=== PATIENT | male | born 1960 | race Caucasian/White ===

== ENCOUNTER → 2016-05-26 | Outpatient (CLI) | payer MEDICARE ==
[~2016-05-26] VITALS: Ht 188 cm; Wt 108.9 kg
[~2016-05-26] MED LIST: AMLO5TAB2 PO; BREO1INH INH; BUPR1TAB17 PO; IBUP800T23 PO; LEVO175T2 PO; LIDOCAINE 2% INJ 100 MG/5 ML SDV (FOR ANES.) As Ordered ONE; LOSA100T36 PO; MULTTAB23 PO; NS 1,000 ML IV SCH; OMEG100011 PO; PROPOFOL 500 MG/50 ML VIAL As Ordered ONE; VITA100054 PO; ZANA4CAP PO
--- NOTE | 2016-05-26 12:28 | ROOR ---
Patient Name: Aguilar Wadswroth Procedure Date: 05/26/2016 11:57 AM Date of : 1960 Age: 55 Room: [facility] Gender: Male Note Status: Finalized Procedure: Upper GI endoscopy Indications: Suspected esophageal reflux Providers: Chetan Veronica Jr, MD Referring MD: ORLANDO GARDNER JR, MD Requesting Provider: Medicines: Propofol per Anesthesia Complications: No immediate complications. Procedure: Pre-Anesthesia Assessment: - Prior to the procedure, a History and Physical was performed, and patient medications and allergies were reviewed. The patient is competent. The risks and benefits of the procedure and the sedation options and risks were discussed with the patient. All questions were answered and informed consent was obtained. Patient identification and proposed procedure were verified by the physician and the nurse in the pre-procedure area and in the procedure room. Mental Status Examination: alert and oriented. Airway Examination: normal oropharyngeal airway and neck mobility. Respiratory Examination: clear to auscultation. CV Examination: normal. ASA Grade Assessment: II - A patient with mild systemic disease. After reviewing the risks and benefits, the patient was deemed in satisfactory condition to undergo the procedure. The anesthesia plan was to use moderate sedation / analgesia (conscious sedation). Immediately prior to administration of medications, the patient was re-assessed for adequacy to receive sedatives. The heart rate, respiratory rate, oxygen saturations, blood pressure, adequacy of pulmonary ventilation, and response to care were monitored throughout the procedure. The physical status of the patient was re-assessed after the procedure. The Endoscope was introduced through the mouth, and advanced to the second part of duodenum. The patient tolerated the procedure well. Findings: The upper third of the esophagus and middle third of the esophagus were normal. Moderately severe esophagitis was found in the lower third of the esophagus. Patchy moderate inflammation characterized by congestion (edema), erythema, friability, granularity and linear erosions was found on the greater curvature of the stomach, in the gastric antrum and in the prepyloric region of the stomach. Biopsies were taken with a cold forceps for histology. The cardia, gastric fundus and gastric body were normal. Patchy severe inflammation characterized by congestion (edema), erythema and friability was found in the duodenal bulb and in the first portion of the duodenum. The second portion of the duodenum was normal. Impression: - Normal upper third of esophagus and middle third of esophagus. - Moderately severe reflux esophagitis. - Gastritis. Biopsied. - Normal cardia, gastric fundus and gastric body. - Duodenitis. - Normal second portion of the duodenum. Recommendation: - Discharge patient to home (ambulatory). - Return to my office in 2 weeks. Chetan Veronica MD Chetan Veronica Jr, MD 05/26/2016 12:28:22 PM This report has been signed electronically. Number of Addenda: 0 Note Initiated On: 05/26/2016 11:57 AM Estimated Blood Loss: Estimated blood loss: none.
--- NOTE | 2016-05-26 12:30 | ROOR ---
Patient Name: Aguilar Wadsworth Procedure Date: 05/26/2016 11:58 AM Date of : 1960 Age: 55 Room: [facility] Gender: Male Note Status: Finalized Procedure: Colonoscopy Indications: Screening for colorectal malignant neoplasm Providers: Chetan Veronica Jr, MD Referring MD: ORLANDO GARDNER JR, MD Requesting Provider: Medicines: Propofol per Anesthesia Complications: No immediate complications. Procedure: Pre-Anesthesia Assessment: - Prior to the procedure, a History and Physical was performed, and patient medications and allergies were reviewed. The patient is competent. The risks and benefits of the procedure and the sedation options and risks were discussed with the patient. All questions were answered and informed consent was obtained. Patient identification and proposed procedure were verified by the physician and the nurse in the pre-procedure area and in the procedure room. Mental Status Examination: alert and oriented. Airway Examination: normal oropharyngeal airway and neck mobility. Respiratory Examination: clear to auscultation. CV Examination: normal. ASA Grade Assessment: II - A patient with mild systemic disease. After reviewing the risks and benefits, the patient was deemed in satisfactory condition to undergo the procedure. The anesthesia plan was to use moderate sedation / analgesia (conscious sedation). Immediately prior to administration of medications, the patient was re-assessed for adequacy to receive sedatives. The heart rate, respiratory rate, oxygen saturations, blood pressure, adequacy of pulmonary ventilation, and response to care were monitored throughout the procedure. The physical status of the patient was re-assessed after the procedure. The Colonoscope was introduced through the anus and advanced to the cecum, identified by appendiceal orifice and ileocecal valve. The colonoscopy was performed without difficulty. The patient tolerated the procedure well. The quality of the bowel preparation was adequate and good. Findings: The perianal exam findings include non-thrombosed internal hemorrhoids, internal hemorrhoids that prolapse with straining, but spontaneously regress to the resting position (Grade II) and internal hemorrhoids that prolapse with straining, but require manual replacement into the anal canal (Grade III). The rectum, recto-sigmoid colon, sigmoid colon, descending colon, transverse colon, ascending colon, cecum and ileocecal valve appeared normal. Impression: - Non-thrombosed internal hemorrhoids, internal hemorrhoids that prolapse with straining, but spontaneously regress to the resting position (Grade II) and internal hemorrhoids that prolapse with straining, but require manual replacement into the anal canal (Grade III) found on perianal exam. - The rectum, recto-sigmoid colon, sigmoid colon, descending colon, transverse colon, ascending colon, cecum and ileocecal valve are normal. - No specimens collected. Recommendation: - Discharge patient to home (ambulatory). - Repeat colonoscopy in 10 years for screening purposes. Chetan Veronica MD Chetan Veronica Jr, MD 05/26/2016 12:29:59 PM This report has been signed electronically. Number of Addenda: 0 Note Initiated On: 05/26/2016 11:58 AM Estimated Blood Loss: Estimated blood loss: none.
[2016-05-26 12:45] VITALS: BP 137/86
== END | disposition home or self-care (01) ==
LOC: M OPP 11:20
PROVIDERS: ATTEND Surgery
DX: Z12.11 Encounter for screening for malignant neoplasm of colon (principal); K64.2 Third degree hemorrhoids; K64.1 Second degree hemorrhoids; K21.0 Gastro-esophageal reflux disease with esophagitis; K29.70 Gastritis, unspecified, without bleeding; K29.80 Duodenitis without bleeding; Z86.010 Personal history of colon polyps; R12 Heartburn; Z87.19 Personal history of other diseases of the digestive system; I10 Essential (primary) hypertension; E03.9 Hypothyroidism, unspecified; M19.90 Unspecified osteoarthritis, unspecified site; F32.9 Major depressive disorder, single episode, unspecified; J44.9 Chronic obstructive pulmonary disease, unspecified; R06.02 Shortness of breath; N40.0 Benign prostatic hyperplasia without lower urinary tract symptoms; Z87.891 Personal history of nicotine dependence; Z79.899 Other long term (current) drug therapy
CPT/HCPCS: 43239; 88305; 99156; 99157; G0105

== ENCOUNTER 2019-02-10 15:39 | Inpatient (IN) | payer MEDICARE ==
[~2019-02-10] VITALS: Ht 188 cm; Wt 103.6 kg
[2019-02-10] VITALS (8 sets, daily range): BP systolic 115–191; BP diastolic 68–89
[~2019-02-10 15:39] MED LIST changes: -AMLO5TAB2 PO; +AMLO5TAB6 PO; -BUPR1TAB17 PO; +BUPR1TAB53 PO; +IBUP1TAB7 PO; -IBUP800T23 PO; -LIDOCAINE 2% INJ 100 MG/5 ML SDV (FOR ANES.) As Ordered ONE; -LOSA100T36 PO; +LOSA100T50 PO; -NS 1,000 ML IV SCH; -PROPOFOL 500 MG/50 ML VIAL As Ordered ONE
[2019-02-10] MEDS ORDERED: ELIQ5TAB PO (15:53)
[2019-02-10] MEDS ORDERED: METO75TA PO (16:04)
[2019-02-10] MEDS ORDERED: FURO40TA2 PO ×2 (16:04→19:53)
[2019-02-10] MEDS ORDERED: LEVO200T4 PO (16:04)
[2019-02-10] MEDS ORDERED: DIGO0.127 PO (16:04)
[2019-02-10 17:07] LABS: VENOUS HCO3 25.6 MEQ/L (23.0-27.0); VENOUS O2 SATURATION 67.4 % (60.0-80.0); VENOUS PARTIAL PRESSURE CO2 49.6 mmHg (38.0-50.0); VENOUS PARTIAL PRESSURE O2 40.8 mmHg (30.0-50.0); VENOUS STANDARD HCO3 22.9 MEQ/L; VENOUS TOTAL CO2 27.1 MEQ/L (24.0-28.0)
[2019-02-10 17:25] LABS: BASO % 0.3 % (0.0-1.0); EOS % 0.2 % (0.0-3.0); HEMATOCRIT 44.2 % (42.0-52.0); HEMOGLOBIN 13.9 g/dl (13.5-17.5); LYMPH % 14.8 % (24.0-44.0); MEAN CORPUSCULAR HEMOGLOBIN 29.8 pg (27.0-33.0); MEAN CORPUSCULAR HGB CONC 31.4 g/dl (32.0-36.5); MEAN CORPUSCULAR VOLUME 94.6 fl (80.0-96.0); MONO % 7.7 % (0.0-5.0); NEUTROPHILS # 10.1 10^3/uL (1.5-8.5); NEUTROPHILS % 76.2 % (36.0-66.0); PLATELET COUNT, AUTOMATED 290 10^3/uL (150-450); RED BLOOD COUNT 4.67 10^6/uL (4.30-6.10); WHITE BLOOD COUNT 13.3 10^3/uL (4.0-10.0)
[2019-02-10 17:37] LABS: ALBUMIN 3.6 GM/DL (3.2-5.2); BILIRUBIN,DIRECT 1.2 MG/DL (0.0-0.2); BILIRUBIN,TOTAL 2.8 MG/DL (0.2-1.0); TOTAL PROTEIN 7.9 GM/DL (6.4-8.2)
[2019-02-10 17:43] LABS: INFLUENZA A AMPLIFICATION NEGATIVE (NEGATIVE); INFLUENZA B AMPLIFICATION NEGATIVE (NEGATIVE)
[2019-02-10 17:49] LABS: INR 2.31; PROTHROMBIN TIME 25.2 SECONDS (11.8-14.0)
[2019-02-10] MEDS ORDERED: DEXTROSE 50% 50 ML SYRINGE IV STA ×2 (18:11→19:08)
[2019-02-10 18:12] LABS: BLOOD UREA NITROGEN 45 MG/DL (7-18); CALCIUM LEVEL 9.5 MG/DL (8.8-10.2); CARBON DIOXIDE LEVEL 29 MEQ/L (21-32); CHLORIDE LEVEL 97 MEQ/L (98-107); CK-MB VALUE MASS 5.1 NG/ML (<3.6); CPK CREATINE PHOSPHOKINASE 182 U/L (39-308); DIGOXIN LEVEL 0.8 NG/ML (0.5-2.0); GLOMERULAR FILTRATION RATE 38.7 (>49); GLUCOSE, FASTING 35 MG/DL (70-100); NT-PRO BNP 24131 PG/ML (<125); POTASSIUM SERUM 5.2 MEQ/L (3.5-5.1); SODIUM LEVEL 137 MEQ/L (136-145); TROPONIN I < 0.02 NG/ML (< 0.10)
[2019-02-10] MEDS ORDERED: MORPHINE 2 MG/ML 1ML VIAL (J2270) IV ONE (18:30)
[2019-02-10] MEDS ORDERED: DIGOXIN INJ 0.5 MG/2 ML AMP (J1160) IV STA (18:37)
[2019-02-10] MEDS ORDERED: FUROSEMIDE 40 MG/4 ML VIAL (J1940) IV ONE (18:45)
[2019-02-10] MEDS ORDERED: VANCOMYCIN HCL 1,000 MG, VIAL MATE ADAPTER 1 EACH in D5W 250 ML IV ONE (18:45)
[2019-02-10] MEDS ORDERED: MORPHINE 2 MG/ML 1ML VIAL (J2270) IV PRN (19:15)
[2019-02-10] MEDS ORDERED: D10W 500 ML IV SCH (19:15)
--- NOTE | 2019-02-10 19:26 | ECGEPIP ---
[facility] - ED Test Date: 2019-02-10 Pat Name: JONATHAN YING Department: Room: - Gender: Male Garage Manager: LEONCIO : 1960 Requested By: Ellie Sanford Order Number: [id number] Reading MD: Ellie Sanford Measurements Intervals [place] Rate: 135 P: [place]: 0 QRS: -71 QRSD: 114 T: 100 QT: 285 QTc: 428 Interpretive Statements ATRIAL FIBRILLATION WITH RAPID VENTRICULAR RESPONSE INCOMPLETE RIGHT BUNDLE BRANCH BLOCK LAD LEFT ANTERIOR FASCICULAR BLOCK MINIMAL ST DEPRESSION ABNORMAL QRS-T ANGLE NO PRIOR ECG FOR COMPARISON Electronically Signed on 02-10-2019 19:25:53 EST by Ellie Sanford
[2019-02-10] MEDS ORDERED: METO1TAB7 PO (19:53)
--- NOTE | 2019-02-10 20:21 | PHACANCOPD ---
PHARMACY VANCOMYCIN DOSING Pt Demographics Demographics Patient Age:58 , Weight:119.000 , Gender: male Adjusted Body Weight Date: 02/10/19, Adjusted Body Weight: Kg Events Past 24 Hours Events Past 24 Hours: NO: Dialysis, Diuretic Therapy, Change in CrCl, Fever, Elevation in WBC, Pending Diagnostics, Pending Procedures, Other Vancomycin Vancomycin Target Ranges: 15-20 mcg/ml Vancomycin Load Y/N: Yes Load Dose Date Time Vancomycin Load Dose: 2000mg Date: 02-10 Time: 2100 Vancomycin Dose Date: 02/10/19. Current Vancomycin Dose: [1000mg q8h] Intermittent Dosing?: No Labs Labs Item Value Date Time White Blood Count 13.3 10^3/uL H 02/10/19 1658 Glomerular Filtration Rate 38.7 L 02/10/19 1658 Creatinine 1.90 MG/DL H 02/10/19 1658 Blood Urea Nitrogen 45 MG/DL H 02/10/19 1658 Vital Signs Label Value Date Time Patient Temperature 98.9 degrees F 02/10/19 1900 Temperature Source Oral 02/10/19 1900 Micro Microbiology 02/10/19 Blood Culture, Received Pending 02/10/19 Blood Culture, Received Pending Creatinine Clearance Date:02/10/19. Creatinine Clearance: [~48]. Pending Labs Trough 11-25 @1200 Assessment and Plan Maintaining Current Dose?: Yes Reason for dose change: No Dose Change Pharmacist Note Pharmacist Note Date: 02/10/19. Pharmacist note:Will monitor and make adjustments as needed. [facility] Feb 10, 2019 20:21
[2019-02-10] MEDS ORDERED: METOPROLOL 5 MG/5 ML VIAL IV STA (20:22)
[2019-02-10] MEDS: ACETAMINOPHEN TAB 650MG DOSE (2X325MG) PO PRN (20:28)
[2019-02-10] MEDS ORDERED: tiZANidine 4 MG TAB PO PRN (20:30)
--- NOTE | 2019-02-10 20:37 | HPEPDOC ---
General Date of Admission 02/10/19 Date of Service: Feb 10, 2019 Chief Complaint The patient is a 58-year-old male admitted with a reason for visit of Short Of Breath. Source: Patient Exam Limitations: No limitations Timing/Duration: Day(s) Severity: Severe Associated Symptoms: Weakness History of Present Illness Patient is 58 years old male with past mental history of hypertension, atrial fibrillation, systolic heart failure with ejection fraction around 20% presented hospital with severe left leg pain. Patient stated that for few days he has been having severe left distal leg pain associated with increased swelling. LLE US shows . Soft tissue edema is identified involving the left calf. A fluid collection is visualized in this region measuring 4.4 x 0.7 x 2.1 cm. Abscess and seroma are within the differential. Also patient complains of palpitations, fever and chills. Of note patient has been recently diagnosed with systolic CHF with ejection fraction from 15-20%, currently on the life vest. In emergency room patient was found to have redness of the left distal leg, le ukocytosis of 13.4, elevated lactic acid, creatinine 1.9, fever of 103, patient is severely dyspneic with respiration rate 25. 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 EKG showed atrial fibrillation with rapid ventricular rate Also patient was found to have atrial fibrillation with rapid ventricular rate. Dr. Rodas was contacted by phone and he recommended Lasix, Lopressor when necessary and digitalis. Home Medications Scheduled Apixaban (Eliquis) 5 Mg Tablet, 5 MG PO BID, (Reported) Bupropion HCl (Bupropion HCl Sr) 150 Mg Tab, 150 MG PO DAILY, (Reported) Cholecalciferol (Vitamin D3) (Vitamin D3) 1,000 Unit Cap, 2,000 UNIT PO DAILY, (Reported) Digoxin (Digox) 125 Mcg Tablet, 125 MCG PO DAILY, (Reported) Fluticasone/Vilanterol (Breo Ellipta 100-25 Mcg INH) 1 Inh Inh, 1 PUFF INH DAILY, (Reported) Furosemide (Furosemide) 40 Mg Tablet, 60 MG PO DAILY, (Reported) Levothyroxine Sodium (Levothyroxine Sodium) 200 Mcg Tablet, 200 MCG PO DAILY, (Reported) Metoprolol Succinate (Metoprolol Succinate) 50 Mg Tab.er.24h, 75 MG PO DAILY, (Reported) Multivit-Min/FA/Lycopen/Lutein (Essential Man 50+ Tablet) 1 Tab Tab, 1 TAB PO DAILY, (Reported) Thendara-3 Fatty Acids/Fish Oil (Thendara 3 1,000 mg Softgel) 1 Cap Cap, 1 CAP PO DAILY, (Reported) Scheduled PRN Ibuprofen (Ibuprofen) 800 Mg Tab, 800 MG PO for PAIN, (Reported) Tizanidine HCl (Zanaflex) 4 Mg Cap, 4 MG PO QIDP PRN for PAIN, (Reported) Allergies Coded Allergies: No Known Allergies (Unverified , 12/31/13) Past Medical History Medical History COPD, hyperlipidemia, hypertension, systolic CHF with ejection fraction from 15- 20% Surgical History Hip replacement Family History Father of ALC Mother had dementia and hypothyroidism Social History * Smoker: former Smoker Alcohol: heavy Drugs: denies A-FIB/CHADSVASC A-FIB History Current/History of A-Fib/PAF?: Yes Current PO Anticoag Therapy: Yes Review of Systems Constitutional: Reports: Chills, Malaise, Weakness, Fatigue Eyes: Denies: Pain, Vision change ENT: Denies: Ear Pain, Dysphagia Skin: Reports: Rash, Lesions Pulmonary: Reports: Dyspnea; Denies: Cough Cardiovascular: Reports: Palpitations; Denies: Chest Pain Gastrointestinal: Denies: Nausea, Vomiting Genitourinary: Denies: Dysuria, Frequency Hematologic: Denies: Bruising, Bleeding Excessively Endocrine: Denies: Polydipsia, Polyphagia Musculoskeletal: Denies: Neck Pain, Back Pain Neurological: Denies: Weakness Psych: Reports: Mood Normal Physical Examination General Exam: Positive: Alert, Cooperative, Other (patient severe volume overload) Eye Exam: Positive: PERRLA ENT Exam: Positive: Atraumatic Neck Exam: Positive: Supple, JVD Chest Exam: Positive: Clear to auscultation Heart Exam: Positive: Irregular Rhythm Telemetry: Positive: Atrial fibrillation Abdomen Exam: Positive: Normal bowel sounds Extremity Exam: Positive: Clubbing, Edema, Swelling (both extremities, more on the left side); Negative: Cyanosis Skin Exam: Positive: Rash (left distal leg) Neuro Exam: Positive: Strength at 5/5 X4 ext, Cranial Nerves 3-12 NL Psych Exam: Positive: Mental status NL Vital Signs Vital Signs Date Time Temp Pulse Resp B/P (MAP) Pulse Ox O2 Delivery O2 Flow Rate FiO2 02/10/19 19:29 18 02/10/19 19:00 98.9 118 131/81 (98) 94 Room Air 02/10/19 18:43 2.0 Laboratory Data Labs 24H Laboratory Tests 2 02/10/19 16:58: Immature Granulocyte % (Auto) 0.8, Neutrophils (%) (Auto) 76.2H, Lymphocytes (%) (Auto) 14.8L, Monocytes (%) (Auto) 7.7H, Eosinophils (%) (Auto) 0.2, Basophils (%) (Auto) 0.3, Neutrophils # (Auto) 10.1H, Lymphocytes # (Auto) 2.0, Monocytes # (Auto) 1.0H, Eosinophils # (Auto) 0.0, Basophils # (Auto) 0.0, Nucleated Red Blood Cells % (auto) 0.0, Prothrombin Time 25.2H, Prothromb Time International Ratio 2.31, Activated Partial Thromboplast Time 32.0, Blood Gas Bicarbonate Standard 22.9, Venous Blood pH 7.330, Venous Blood Partial Pressure CO2 49.6, Venous Blood Partial Pressure O2 40.8, Venous Blood Total Carbon Dioxide 27.1, Venous Blood HCO3 25.6, Venous Blood Oxygen Saturation 67.4, Venous Blood Base Excess -1.0, Anion Gap 11, Glomerular Filtration Rate 38.7L, Lactic Acid Level 5.5*H, Calcium Level 9.5, Total Bilirubin 2.8H, Direct Bilirubin 1.2H, Aspartate Amino Transf (AST/SGOT) 370H, Alanine Aminotransferase (ALT/SGPT) 323H, Alkaline Phosphatase 194H, Total Creatine Kinase 182, Creatine Kinase MB 5.1H, Creatine Kinase MB Relative Index 2.80, Troponin I < 0.02, SZ-Rgh-L-Type Natriuretic Peptide 64108Q, Total Protein 7.9, Albumin 3.6, Albumin/Globulin Ratio 0.84L, Thyroid Stimulating Hormone (TSH) 1.670, Thyroxine (T4) 12.0, Digoxin Level 0.8 02/10/19 17:07: Influenza Type A (RT-PCR) NEGATIVE, Influenza Type B (RT-PCR) NEGATIVE 02/10/19 19:07: Bedside Glucose (Misc Panel) 58L 02/10/19 19:50: Bedside Glucose (Misc Panel) 106 CBC/BMP Laboratory Tests 02/10/19 16:58 Microbiology Microbiology 02/10/19 Blood Culture, Received Pending 02/10/19 Blood Culture, Received Pending Assessment/Plan Patient is 58 years old male with past mental history of hypertension, atrial fibrillation, systolic heart failure with ejection fraction around 20% presented hospital with severe left leg pain. Patient stated that for few days he has been having severe left distal leg pain associated with increased swelling. Also patient complains of palpitations, fever and chills. Of note patient has been recently diagnosed with systolic CHF with ejection fraction from 15-20%, currently on the life vest. In emergency room patient was found to have redness of the left distal leg, leukocytosis of 13.4, elevated lactic acid, creatinine 1.9, fever of 103, patient is severely dyspneic with respiration rate 25. Patient was diagnosed with sepsis most likely secondary to left leg cellulitis. Patient is severely volume overload Problems (1) Sepsis Status: Acute Problem Text: Most likely secondary to left leg cellulitis. US of LLE shows a fluid collection is visualized in this region measuring 4.4 x 0.7 x 2.1 cm. Abscess and seroma are within the differential. Appreciate / agree with surgeon consult Patient has leukocytosis, elevated lactic acid, he is febrile Doppler ultrasound negative for DVT Zosyn IV, vancomycin IV MRSA screen Patient severely volume overload secondary to systolic CHF with low ejection fraction. Blood culture, urine culture Tylenol when necessary (2) Cellulitis Status: Acute Problem Text: Most likely source of infection See above (3) Heart failure, systolic, with acute decompensation Status: Acute Problem Text: Patient is here to volume overload secondary to acute systolic CHF Nutrition Program Instructor Dr. Rodas recommended to continue Lasix IV I's and O's Fluid restriction 1200cc I will not initiate Entresto and spironolactone due to hyperkalemia and JEREMIAS (4) Atrial fibrillation with RVR Status: Acute Problem Text: Continue Eliquis Continue digitalis, metoprolol, Lopressor IV when necessary (5) JEREMIAS (acute kidney injury) Status: Acute Problem Text: Secondary to acute systolic CHF Prerenal, severe volume overload can be cause of acute kidney injury Continue Lasix IV Continue to monitor (6) Hypoglycemia Status: Resolved Problem Text: Secondary to sepsis due to left leg cellulitis Currently resolved D50 when necessary Plan / VTE VTE Prophylaxis Ordered?: Yes MEGAN OLMEDO DO Feb 10, 2019 20:37
[2019-02-10] MEDS ORDERED: METOPROLOL 5 MG/5 ML VIAL IV PRN (20:45)
[2019-02-10 20:52] LABS: CALCIUM LEVEL 8.7 MG/DL (8.8-10.2); CREATININE FOR GFR 1.8 MG/DL (0.70-1.30); GLOMERULAR FILTRATION RATE 41.2 (>49); POTASSIUM SERUM 3.9 MEQ/L (3.5-5.1); TROPONIN I 0.06 NG/ML (< 0.10)
--- NOTE | 2019-02-10 20:54 | REPVR ---
PROCEDURE INFORMATION: Exam: US Left Non-Vascular Joint or Other Extremity Structure, Limited Lower Extremity Exam date and time: 02/10/2019 8:03 PM Age: 58 years old Clinical history: Pain; Lower leg; Left TECHNIQUE: Imaging protocol: Left US Non-Vascular Joint or Other Extremity Structure. Limited exam of the lower extremity. COMPARISON: No relevant prior studies available. FINDINGS: Soft tissues: This is a limited ultrasound evaluation of the left calf. Soft tissue edema is identified involving the left calf. A hypoechoic fluid collection is visualized in this region measuring 4.4 x 0.7 x 2.1 cm. Abscess and seroma are within the differential. Bones/joints: Not evaluated on this limited study. IMPRESSION: 1. Soft tissue edema is identified involving the left calf. 2. A fluid collection is visualized in this region measuring 4.4 x 0.7 x 2.1 cm. Abscess and seroma are within the differential. Clinical correlation and possible MRI with/without contrast are recommended. Electronically signed by: Calvin Calderon On 02/10/2019 20:53:58 PM
[2019-02-10] MEDS: VANCOMYCIN HCL 1,000 MG, VIAL MATE ADAPTER 1 EACH in D5W 250 ML IV SCH (21:00)
--- NOTE | 2019-02-10 21:27 | REPVR ---
PROCEDURE INFORMATION: Exam: US Duplex Left Lower Extremity Veins, Limited Exam date and time: 02/10/2019 9:09 PM Age: 58 years old Clinical history: Pain; Leg, lower; Left; Additional info: Dvt TECHNIQUE: Imaging protocol: Real-time Duplex ultrasound of the Left Lower Extremity with 2-D crowe scale, color Doppler flow and spectral waveform analysis with image documentation. Limited exam focused on the left lower extremity veins. COMPARISON: No relevant prior studies available. FINDINGS: Left deep veins: The common femoral, femoral and popliteal veins are patent without thrombus. Normal compressibility, augmentation response and Doppler waveforms. Left superficial veins: Saphenofemoral junction is patent without thrombus. Soft tissues: Mild soft tissue edematous changes visualized. IMPRESSION: 1. No evidence of deep vein thrombosis from the left common femoral to the popliteal veins. 2. Mild soft tissue edematous changes visualized. Electronically signed by: Calvin Calderon On 02/10/2019 21:26:52 PM
[2019-02-10] MEDS: PIPERACILLIN/TAZOBACTAM SOD 3.375 GM in D5W MINI-BAG PLUS 50 ML IV SCH (21:46)
[2019-02-10] MEDS: APIXABAN 5 MG TAB (ELIQUIS) PO SCH (21:47)
[2019-02-10 22:02] LABS: ABG BASE EXCESS 1.8 (-2.0-2.0); ABG HCO3 25.4 MEQ/L (22.0-26.0); ABG O2 SATURATION 97.8 % (95.0-99.0); ABG PARTIAL PRESSURE CO2 36.6 mmHg (35.0-45.0); ABG PARTIAL PRESSURE O2 100.3 mmHg (75.0-100.0); ABG TOTAL CO2 26.5 MEQ/L (23.0-31.0); ABG pH (ARTERIAL) 7.459 UNITS (7.350-7.450)
[2019-02-11] VITALS (7 sets, daily range): BP systolic 103–131; BP diastolic 61–73
[2019-02-11] MEDS ORDERED: PROHANCE 279.3MG/ML 5ML VIAL (A9576) As Ordered ONE ×2 (01:12→01:13)
--- NOTE | 2019-02-11 02:51 | REPVR ---
PROCEDURE INFORMATION: Exam: MR Left Lower Extremity Without and With Contrast, Tibia Fibula Exam date and time: 02/11/2019 1:53 AM Age: 58 years old Clinical history: Cellulitis and edema and swelling, leg or foot; Yes, it is localized; Patient HX: Left soft tissue swelling, redness, edema on medial aspect mid calf. For several days, PT denies known injury. PT was given 10cc prohance; Additional info: Possible left calf abscess - mri left lower leg TECHNIQUE: Imaging protocol: MR of the Left tibia fibula without and with intravenous contrast. Contrast material: PROHANCE; Contrast volume: 10 ml; Contrast route: CENTRAL LINE; COMPARISON: US EXTREMITY NON VASCUL LIMITED LEFT 02/10/2019 7:43 PM FINDINGS: Bones/joints: Unremarkable. No bone marrow edema or destructive bone lesions. No fractures. Soft tissues: There is diffuse extensive subcutaneous edema throughout the left lower extremity. No drainable fluid collection is seen. There is mild intramuscular edema in the leg. No intramuscular abscess or mass. IMPRESSION: 1. Diffuse subcutaneous edema may be secondary to cellulitis, venous insufficiency, or other causes of systemic edema. 2. Mild intramuscular edema can be seen in the setting of myositis versus venous insufficiency or systemic edema. 3. No abscess or drainable fluid collection. No signs of osteomyelitis. Electronically signed by: Moncho Fofana On 02/11/2019 02:50:54 AM
--- NOTE | 2019-02-11 05:24 | CR ---
DATE OF CONSULTATION: 02/10/2019 REASON FOR CONSULTATION: Possible infection left calf. HISTORY OF PRESENT ILLNESS: The patient is a 58-year-old man with severe heart disease with a significantly reduced ejection fraction of perhaps 20%. He has a history of hypertension and atrial fibrillation. He apparently has some chronic fluid overload with peripheral edema. Over the last three or four days he has noticed increasing shortness of breath and has noticed increased pain in the left calf. He has noticed a small bruised area on the medial aspect of the lower leg on the left. He has not noticed any drainage. He has not had any definite penetrating injury or puncture wound in this area. He is on Eliquis and reports that he sometimes will bump himself and get bruising. Because of his dyspnea accompanied by fever and his leg discomfort he presented to the emergency department for evaluation. He was admitted by Dr. Castro of the hospitalist service. An ultrasound had been obtained of the left calf that suggested a small fluid collection and Dr. Castro asked me to see the patient to see if drainage could be accomplished. ALLERGIES: The patient has no known medication allergies. MEDICATIONS: Medications are as listed in the hospital record and include: - Eliquis - digoxin - Lasix - Synthroid - metoprolol. PAST MEDICAL HISTORY: Medical history is significant for his cardiac issue. PAST SURGICAL HISTORY: 1. He has had bilateral hip replacements. 2. Bilateral inguinal hernia repairs. 3. He has undergone upper and lower endoscopy. FAMILY HISTORY: notable for significant cardiac disease. SOCIAL HISTORY: He is a former smoker and has been a heavy user of alcohol at times. REVIEW OF SYSTEMS: He has been feeling weak and short of breath and he does report having had chills. There is pain in the left calf which he says is all around the legs not in any particular spot so much. PHYSICAL EXAMINATION: Physical exam is limited to the lower extremities. He has significant pitting edema of both lower extremities. He has palpable pulses. I do not appreciate any open wounds or ulcers of either lower extremity. There is an area of what appears to be bruising on the medial aspect of the left calf. This has almost a crescentic shaped. There is no evidence of hematoma. I cannot detect a definite area of fluctuance on either leg. The size of the calves is about the same from right to left, though the reddish discoloration is only present on the medial aspect of the left calf. LABORATORY STUDIES: Laboratory studies included a CBC showing a white count of 13 with a differential showing 76% neutrophils, 15% lymphocytes and 8% monocytes. Hemoglobin is 14 with a hematocrit of 44 and the platelet count is 290,000. Chemistry profile from the emergency department showed a sodium of 137, potassium 5.2, chloride 97, CO2 of 29, BUN of 45, creatinine 1.9 and glucose of 35. His lactic acid was reported as 5.5. His brain natriuretic peptide was 24,131 which is extremely elevated. PT/INR and PTT are noted. Digoxin was 0.8 which is in the therapeutic range. IMAGING: Imaging included a chest x-ray which shows multiple pieces of electrical equipment presumably this is what is imbedded in his vest. He has a large heart and I do not see any definite infiltrates, though there are areas obscured by his equipment. He had a duplex scan of his left lower extremity and the report is pending. He had an ultrasound of the soft tissues of his calf. This reported a possible small fluid collection in the left leg, possibly abscess versus seroma. Unfortunately I cannot identify the positions of the various images on the skin surface of the lower leg. IMPRESSION: 1. Systolic heart failure with marked fluid overload and peripheral edema. 2. Possible cellulitis and/or abscess of the left lower leg. 3. Atrial fibrillation. RECOMMENDATIONS: At this point it is unclear to me if he in fact has an abscess in his left lower leg. There is some skin discoloration which may be secondary to infection, although this could be from a direct blow with some bruising. Although the ultrasound was reported as showing a fluid collection 4.4 x 0.7 x 2.1 cm., this is actually fairly small and I cannot identify from the static images done in the x-ray department where this fluid collection would be located on the patient's leg. My review of the images shows very sharply bordered fluid which looks less inflammatory than I might anticipate for an abscess. Since I cannot identify the exact location of this fluid collection I cannot perform any sort of aspiration or drainage. With his marked peripheral edema and his other underlying issues an incision in his lower leg is likely to require more prolonged healing than normal with persistent drainage from the wound secondary to the edema. I have recommended that we obtain an MRI of his lower extremity so that we can both better assess the possibility of an abscess and also determine its location if one is identified. The patient was counseled and he is agreeable with the MRI. I will order this and we will await the results. ADRIANA
[2019-02-11 05:27] LABS: HEMOGLOBIN 12.3 g/dl (13.5-17.5); RED BLOOD COUNT 4.12 10^6/uL (4.30-6.10); WHITE BLOOD COUNT 14.1 10^3/uL (4.0-10.0)
[2019-02-11 05:28] LABS: HEMATOCRIT 38.5 % (42.0-52.0); MEAN CORPUSCULAR HEMOGLOBIN 29.9 pg (27.0-33.0); MEAN CORPUSCULAR HGB CONC 31.9 g/dl (32.0-36.5); MEAN CORPUSCULAR VOLUME 93.4 fl (80.0-96.0); PLATELET COUNT, AUTOMATED 168 10^3/uL (150-450)
[2019-02-11] MEDS: VANCOMYCIN HCL 1,000 MG, VIAL MATE ADAPTER 1 EACH in D5W 250 ML IV SCH (05:38)
--- NOTE | 2019-02-11 07:56 | REP ---
Clinical: Central line placement . Comparison: 02/10/2019 . Findings: Right IJ line with tip in the SVC. Stable cardiomegaly suggested along with mild left lower lobe/retrocardiac atelectasis. No effusion. No pneumothorax. Skeletal structures intact. Examination is somewhat limited due to overlying equipment. Impression: Right IJ line with tip in the SVC. No pneumothorax. Mild left lower lobe atelectasis. Electronically Signed by Simone Anders MD 02/11/2019 07:48 A
[2019-02-11 07:58] LABS: ALBUMIN 2.7 GM/DL (3.2-5.2); BILIRUBIN,TOTAL 2.6 MG/DL (0.2-1.0); CALCIUM LEVEL 7.9 MG/DL (8.8-10.2); CREATININE FOR GFR 1.98 MG/DL (0.70-1.30); GLOMERULAR FILTRATION RATE 36.9 (>49); MAGNESIUM LEVEL 1.7 MG/DL (1.8-2.4); POTASSIUM SERUM 3.7 MEQ/L (3.5-5.1)
--- NOTE | 2019-02-11 08:15 | REP ---
REASON FOR EXAM: Cough. The technique utilized in obtaining the radiograph has magnified the cardiac silhouette and accentuated the interstitial markings. There are no priors for comparison. Multiple devices are seen strewn about the chest limiting evaluation of it. There is global cardiomegaly accentuated by technique. No abnormal opacities are seen in the imaged portion of the lung ren. The pleural angles are sharp. The osseous structures are within normal limits. IMPRESSION: Global cardiomegaly, but no evidence of acute cardiopulmonary disease on this limited exam. Electronically Signed by Will Palomo DO 02/11/2019 12:10 P
[2019-02-11] MEDS: DIGOXIN 0.125 MG TAB PO SCH (09:39)
[2019-02-11] MEDS: LEVOTHYROXINE 100MCG TABLET (0.1MG) PO SCH (09:39)
[2019-02-11] MEDS: OMEGA-3 1000MG CAPSULE PO SCH (09:39)
[2019-02-11] MEDS: VITAMIN D 1,000 INTERNATIONAL UNITS TABLET PO SCH (09:41)
[2019-02-11] MEDS: APIXABAN 5 MG TAB (ELIQUIS) PO SCH ×2 (09:41→20:51)
[2019-02-11] MEDS: METOPROLOL SUCC (TopROL XL) 50MG **XL** TAB PO SCH (09:41)
[2019-02-11] MEDS: PERCOCET 5MG/325MG TAB PO PRN ×3 (09:45→21:01)
[2019-02-11] MEDS ORDERED: PILL CUTTER 1 EACH XX PRN (10:00)
[2019-02-11] MEDS: buPROPion **SR TABLET** (ZYBAN) 150MG PO SCH (12:26)
[2019-02-11] MEDS: FUROSEMIDE 40 MG/4 ML VIAL (J1940) IV SCH (12:27)
--- NOTE | 2019-02-11 19:58 | IPNPDOC ---
Date Seen The patient was seen on 02/11/19. Progress Note SUBJECTIVE: 58-year-old male with past medical history of CHF (EF 20%), atrial fibrillation, hypertension, severe aortic insufficiency was admitted for acute on chronic congestive heart failure and left lower showing cellulitis. Patient was treated with IV Lasix and reports significant improvement in dyspnea since presentation. Currently is resting comfortably in bed, has good urine output, w ithout any additional was at this time. He did get out of bed to Ambien with physical therapy, reports excessive dyspnea on exertion, although ambulation is significantly improved from yesterday. He denies any chest pain, nausea, vomiting, abdominal pain or diarrhea at this time. 10 point review of systems negative except for above PHYSICAL EXAMINATION: VITAL SIGNS: Please see below. GENERAL: No distress, obese HEENT: Normocephalic, atraumatic, moist mucous membranes NECK: Supple CARDIOVASCULAR EXAMINATION: S1, S2, distant RESPIRATORY EXAMINATION: Diminished, scattered rhonchi, no wheezing ABDOMINAL EXAMINATION: Soft, nontender, nondistended, positive bowel sounds EXTREMITIES: Bilateral lower extremity pitting edema, left villaseñor with erythematous patch, warm and tender to palpation SKIN: No rash NEUROLOGICAL EXAMINATION: Alert and oriented 3, no focal deficits PSYCHIATRIC EXAMINATION: Calm and cooperative LABORATORY DATA, IMAGING STUDIES, MICROBIOLOGY: Please see below. Echocardiogram: No. DVT prophylaxis ordered?: no ASSESSMENT AND PLAN: 58-year-old male with past medical history of CHF, atrial fibrillation, hypertension, severe aortic insufficiency was admitted for acute on chronic CHF exacerbation and cellulitis. PROBLEMS: 1. Acute on chronic systolic CHF: EF 20% on echocardiogram done a few days ago in the outpatient setting, continue Lasix 40 mg IV twice a day, monitor I's and O's, fluid restriction, weight daily. Cardiology consulted, eval pending 2. Left lower extremity Cellulitis: MRSA PCR negative, discontinue Zosyn, Continue Zosyn, will monitor for improvement. 3. Atrial fibrillation: Continue Eliquis for anticoagulation, continue metoprolol and digoxin for rate control. 4. Hypertension: Continue metoprolol 5. Hypothyroidism: Continue levothyroxine DVT Proflex: Autologous GI prophylaxis: Not needed VS, I&O, 24H, Fishbone Vital Signs/I&O Vital Signs Date Time Temp Pulse Resp B/P (MAP) Pulse Ox O2 Delivery O2 Flow Rate FiO2 02/11/19 17:30 98.3 92 02/11/19 17:30 20 02/11/19 16:00 2.0 02/11/19 16:00 131/70 (90) 94 Nasal Cannula 02/11/19 04:00 96 I&O- Last 24 Hours up to 6 AM 02/11/19 05:59 Intake Total 240 ml Output Total 2175 ml Balance -1935 ml Laboratory Data 24H LABS Laboratory Tests 2 02/10/19 20:10: Anion Gap 9, Glomerular Filtration Rate 41.2L, Calcium Level 8.7L, Troponin I 0.06#, Procalcitonin 1.83 02/10/19 20:21: Bedside Glucose (Misc Panel) 109 02/10/19 21:35: Lactic Acid Followup at 4 Hours 2.6*H 02/10/19 21:39: Blood Gas Bicarbonate Standard 26.0, Arterial Blood pH 7.459H, Arterial Blood Partial Pressure CO2 36.6, Arterial Blood Partial Pressure O2 100.3H, Arterial Blood Total CO2 26.5, Arterial Blood HCO3 25.4, Arterial Blood Base Excess 1.8, Arterial Blood Oxygen Saturation 97.8 02/10/19 22:50: Methicillin-Resist S.aureus DNA PCR NOT DETECTED 02/10/19 22:56: Bedside Glucose (Misc Panel) 78L 02/10/19 23:00: Troponin I 0.09# 02/11/19 00:37: Bedside Glucose (Misc Panel) 77L 02/11/19 02:44: Troponin I 0.11#H 02/11/19 05:00: Troponin I 0.07#, Nucleated Red Blood Cells % (auto) 0.0, Anion Gap 10, Glomerular Filtration Rate 36.9L, Calcium Level 7.9L, Magnesium Level 1.7L, Total Bilirubin 2.6H, Aspartate Amino Transf (AST/SGOT) 349H, Alanine Aminotransferase (ALT/SGPT) 311H, Alkaline Phosphatase 116, Total Protein 6.0#L, Albumin 2.7#L, Albumin/Globulin Ratio 0.82L 02/11/19 05:45: Bedside Glucose (Misc Panel) 295H 02/11/19 12:20: Bedside Glucose (Misc Panel) 123H CBC/BMP Laboratory Tests 02/10/19 20:10 02/11/19 05:00 Microbiology Microbiology 02/10/19 Blood Culture - Preliminary, Resulted No growth after 24 hours . All specim... 02/10/19 Blood Culture - Preliminary, Resulted No growth after 24 hours . All specim... ALEJANDRA TOLENTINO MD Feb 11, 2019 19:58
[2019-02-11] MEDS ORDERED: POTASSIUM CHLORIDE 10 MEQ SR TABLET PO ONE (20:00)
[2019-02-11] MEDS ORDERED: MAG SULF 1GM/100ML (MAG RUN) 1 GM in IV 1 EA IV ONE (20:00)
--- NOTE | 2019-02-11 20:37 | CR ---
DATE OF CARDIOLOGY CONSULTATION: 02/11/2019 INDICATION: Atrial fibrillation with rapid ventricular response, sepsis and congestive heart failure. HISTORY OF PRESENT ILLNESS Mr. Wadsworth is known to me. He is a 58-year-old man whom I met for the first time this last Monday. He is normally taken care of by Helen Linton and Dr. Corea. He did not have much medical history other than hypothyroidism and chronic obstructive pulmonary disease (COPD) until he presented in February with complaints of gradually increasing shortness of breath and peripheral edema. He was found to be in atrial fibrillation with rapid ventricular response. He was started on beta-blockers and digoxin and diuretics, but his dyspnea did not improve much. An echocardiogram that was performed last week in our office revealed dilated left ventricle with severe left ventricular systolic dysfunction and ejection fraction estimated between 15% and 20%. There was also tricuspid but nevertheless deformed aortic valve with moderately severe aortic insufficiency and very dilated ascending aorta measuring 5.7 cm. The patient admitted to me that he was drinking a considerable amount of alcohol. Apparently his last year, which through him into severe depression and he admits that the toward the end of last year he was a heavy drinker. He cut down substantially early this year, but still was drinking a fair amount of alcohol at least 3 or 4 drinks a day. I had a discussion with him on Monday that it is absolutely essential that he completely quits. I did not make any medication changes, but I arranged for him to receive a LifeVest that he received on Monday. Unfortunately shortly thereafter he started experiencing fever and chills and gradually progressive dyspnea and eventually came to emergency room in severe respiratory distress. He was found to be febrile with fever reaching 104 and there was prominent swelling and erythema of both lower extremities but much more prominent on the left calf. He had an ultrasound that raised suspicion for an abscess but subsequent MRI did not reveal evidence for one. He was started on beta-blockers because he was very tachycardic. He received additional doses of IV furosemide and digoxin and since his fever has broke down he is feeling much more improved, but nevertheless he still appears short of breath even with talking longer sentences. PAST MEDICAL HISTORY 1. COPD. 2. Cardiomyopathy as above. 3. Moderately severe aortic insufficiency. 4. Ascending aortic aneurysm. 5. Hypertension. 6. Dyslipidemia. 7. History of alcohol use. OUTPATIENT MEDICATIONS Apixaban 5 mg twice a day, bupropion 150 a day, vitamin D3, digoxin 0.125 a day, Breo Ellipta, furosemide 40 mg tablet, 60 mg daily, levothyroxine 200 mcg daily, metoprolol succinate 75 mg daily, omega 3 fatty acids and multivitamins. PAST SURGICAL HISTORY: Positive for hip replacement. ALLERGIES: No known allergies. SOCIAL HISTORY The patient is recently . He is has a history of smoking but quit a few years ago. He has been drinking a fair amount of alcohol until very recently. FAMILY HISTORY Father of ALC, mother had dementia and hypothyroidism. REVIEW OF SYSTEMS: He reports that the fever and chills started just shortly and suddenly before his presentation to our emergency room. Denies any chest pain. He has had paroxysmal nocturnal dyspnea (PND) and orthopnea for at least a month or longer. No abdominal pain, no nausea, vomiting, diarrhea. He has had peripheral edema for several months. No prior history of syncope and near-syncope. PHYSICAL EXAMINATION Mr. Wadsworth is a 58-year-old man who appears older than his calendar age. He currently does not appear in any distress at rest, but when he talks longer sentences he appears mildly short of breath. Vital signs: Blood pressure last documented 131/70, heart rate around 90-100. He is afebrile currently, but his T-max was 104.3; that was yesterday evening. He has been afebrile since. His jugular venous pressure appears still high. Lungs are reasonably clear in upper two-thirds but somewhat diminish over one-third. There are occasional fine crackles. I do not appreciate any wheezing. Heart: Exam revealed surprisingly quiet precordium. I do not appreciate any distinct diastolic murmur. There is faint systolic murmur over the aortic valve. No gallop as such. Abdomen is soft without tenderness, rebound tenderness. He has 3+ edema to mid thighs. There is prominent redness over the medial aspect of his right calf. No resistance that I could palpate. Neurologically he is mostly intact. LABORATORY CBC this morning: WBC count 14,000, hemoglobin 12.3, hematocrit 38, platelet count 168,000. Basic metabolic panel: Sodium 136, potassium 3.7, BUN 50, creatinine 2.0, GFR 40, glucose 140. His lactic acid was 2.6 as of yesterday evening, magnesium 1.7, AST, ALT very high at 349 and 311. Troponins on presentation were negative, but then became weakly positive this morning at 0.11. Albumin is 2.7. ABGs as of yesterday evening: pH was 7.45 and pCO2 was 36. Digoxin level last night was 0.8. Chest x-ray is consistent with cardiomegaly, I do not appreciate any obvious effusion. ECG reveals atrial fibrillation with mild tachycardia and nonspecific repolarization abnormalities. ASSESSMENT/PLAN Mr. Wadsworth is a 58-year-old man who has most likely nonischemic cardiomyopathy potentially tachycardia induced cardiomyopathy, but also possibly related to I assume chronic aortic insufficiency. He has severe left ventricular systolic dysfunction with moderately severe aortic insufficiency and very dilated ascending aorta. He presented with fever, chills and respiratory distress. I suspect that he has sepsis that was very likely due to cellulitis of left lower extremity. I am afraid that he very likely will need to be all operated on his aortic valve and ascending aorta but I do not think that he is any shape currently to undergo this procedure. First of all we need to control the infection. He was started on PipTaz and so far has been afebrile since yesterday. The cultures so far have been negative. Antibiotics will be continued. As far as the management of heart failure is concerned, so he is already reasonably later rate controlled and anticoagulated for atrial fibrillation I would continue the doses of Toprol and digoxin the same. If we can have enough blood pressure reserve I would add low-dose isosorbide and hydralazine to his regimen, but at this point his blood pressure if anything is slightly soft so I would not add additional medications and continue diuresis. He is certainly in difficult situation with underlying renal insufficiency. Nevertheless, I am still optimistic that this condition will gradually improve we will be able to pursue coronary angiography and very likely open heart surgery that will follow in the setting of more controlled condition. ADRIANA
[2019-02-11] MEDS: PIPERACILLIN/TAZOBACTAM SOD 3.375 GM in D5W MINI-BAG PLUS 50 ML IV SCH (20:51)
--- NOTE | 2019-02-11 21:11 | ECGEPIP ---
[facility] Test Date: 2019-02-10 Pat Name: JONATHAN YING Department: Room: [place] [address] Gender: Male Spa Director/Finance: ODILON : 1960 Requested By: MEGAN OLMEDO Order Number: [id number] Reading MD: Crystal Prather Measurements Intervals [place] Rate: 115 P: [place]: 0 QRS: -47 QRSD: 118 T: 95 QT: 346 QTc: 480 Interpretive Statements ATRIAL FIBRILLATION WITH RAPID VENTRICULAR RESPONSE LEFT ANTERIOR FASCICULAR BLOCK NONSPECIFIC ST & T-WAVE ABNORMALITY SINCE 15:55 SAME DAY HR IS SLOWER, OTHERWISE MINIMAL CHANGE Electronically Signed on 02-11-2019 21:10:56 EST by Crystal Prather
--- NOTE | 2019-02-11 21:13 | ECGEPIP ---
[facility] Test Date: 2019-02-11 Pat Name: JONATHAN YING Department: Room: [place] [address] Gender: Male Set Up / Operator: INESSA : 1960 Requested By: MEGAN OLMEDO Order Number: [id number] Reading MD: Crystal Prather Measurements Intervals [place] Rate: 85 P: [place]: 0 QRS: -49 QRSD: 111 T: 127 QT: 397 QTc: 473 Interpretive Statements ATRIAL FIBRILLATION LEFT ANTERIOR FASCICULAR BLOCK ST DEVIATION AND MODERATE T-WAVE ABNORMALITY, CONSIDER ANTEROLATERAL ISCHEMIA PRECORDIAL T WAVE ABNORMALITY IS NEW SINCE 02/10/2019 Electronically Signed on 02-11-2019 21:13:21 EST by Crystal Prather
[2019-02-12] VITALS: BP 126/70
[2019-02-12] MEDS: FUROSEMIDE 40 MG/4 ML VIAL (J1940) IV SCH ×3 (01:18→23:30)
[2019-02-12 04:00] VITALS: BP 136/74
[2019-02-12] MEDS: PERCOCET 5MG/325MG TAB PO PRN ×4 (04:33→23:36)
[2019-02-12 04:56] LABS: HEMATOCRIT 39.2 % (42.0-52.0); HEMOGLOBIN 12.7 g/dl (13.5-17.5); MEAN CORPUSCULAR HEMOGLOBIN 29.4 pg (27.0-33.0); MEAN CORPUSCULAR HGB CONC 32.4 g/dl (32.0-36.5); MEAN CORPUSCULAR VOLUME 90.7 fl (80.0-96.0); PLATELET COUNT, AUTOMATED 175 10^3/uL (150-450); RED BLOOD COUNT 4.32 10^6/uL (4.30-6.10); WHITE BLOOD COUNT 15.6 10^3/uL (4.0-10.0)
[2019-02-12] MEDS: PIPERACILLIN/TAZOBACTAM SOD 3.375 GM in D5W MINI-BAG PLUS 50 ML IV SCH ×3 (05:00→20:08)
[2019-02-12 05:18] LABS: ALBUMIN 2.5 GM/DL (3.2-5.2); CREATININE FOR GFR 1.47 MG/DL (0.70-1.30); MAGNESIUM LEVEL 2.1 MG/DL (1.8-2.4); PHOSPHORUS LEVEL 2.3 MG/DL (2.5-4.9); POTASSIUM SERUM 3.6 MEQ/L (3.5-5.1); TOTAL PROTEIN 5.5 GM/DL (6.4-8.2)
[2019-02-12] MEDS ORDERED: LORazepam 2 MG TAB PO PRN (08:15)
--- NOTE | 2019-02-12 08:20 | IPN ---
DATE: 02/12/2019 Mr. Wadsworth is feeling much better today. He is less short of breath and has less discomfort in his left lower extremity. No chest pain. Overnight, he remained in atrial fibrillation with modestly fast heart rate that typically was around 90-100 beats per minute. This morning, he is afebrile. Blood pressure is 136/74. Saturation 93% on 2 liters of oxygen. His fluid balance was recorded at approximately a liter negative yesterday and is already 3 liters negative today, he already made 3 liters urine. Weight is recorded as 114 kg, which would be impressive weight loss compared to yesterday. He is alert and oriented and appropriate. His jugular venous pulse (JVP) is still high. Lungs are reasonably clear with only occasional crackle over the bases. Heart exam reveals irregular rhythm. There is a faint murmur over the aortic valve, but I would not call it more than 03/25 and I do not appreciate any distinct diastolic murmur. No gallop. Abdomen is soft. No tenderness. No hepatosplenomegaly. Extremities still have edema, it is markedly diminished on the right lower extremity and on the left lower extremity there is redness over mostly the medial aspect of his calf with some petechiae which is not appreciably different since yesterday. I do not appreciate any additional skin lesions. Laboratories: Basic metabolic panel reveals sodium 138, potassium 3.6, BUN 44, creatinine 1.5 and glucose 114. Liver function tests remain elevated, but less so than yesterday. AST is 221 and ALT 306. Albumin is 2.5. CBC reveals a WBC count of 15.6 thousand, hemoglobin 12.7, hematocrit 39 and platelet count 175,000. Blood culture drawn on so far have been negative. ASSESSMENT/PLAN: Mr. Wadsworth is a 58-year-old man who has severe cardiomyopathy which I presume is most likely nonischemic with differential diagnosis including possibility of alcohol-induced cardiomyopathy, tachycardia induced cardiomyopathy and consequence of long standing aortic insufficiency. He also has dilated ascending aorta measuring 5.7 cm. Currently, he presented with acute respiratory distress and pain in the left lower extremity in the setting of fever and chills that most likely originated from cellulitis of the left lower extremity. He has been improving with antibiotic treatment. He still remains in heart failure but it is improving as well. At this setting, I would continue current management. He seemed to have very positive diuretic response and the fact that his creatinine is actually improved is certainly very encouraging. Because he has moderately severe aortic insufficiency, he is already pretty vasodilated. As such, the use of vasodilating medications is probably not going to be overly beneficial. Also due to renal dysfunction, I am reluctant to introduce NORI inhibitors or ARBs. If his renal function should improve with additional diagnosis though, then we can consider adding low dose NORI inhibitor, but not yet. In the longer horizon. I am hoping that with medical management he will stabilize and he will be able to be discharged home. We then plan on arranging outpatient cardiac catheterization with open heart surgery likely to follow depending on findings. I talked to him about this plan again. I again stressed the importance of alcohol avoidance which seems to so far have been successful, his last alcohol was on Monday.
[2019-02-12 08:42] VITALS: BP 116/68
[2019-02-12] MEDS: VITAMIN D 1,000 INTERNATIONAL UNITS TABLET PO SCH (08:56)
[2019-02-12] MEDS: METOPROLOL SUCC (TopROL XL) 50MG **XL** TAB PO SCH (08:58)
[2019-02-12] MEDS: buPROPion **SR TABLET** (ZYBAN) 150MG PO SCH (08:58)
[2019-02-12] MEDS: LEVOTHYROXINE 100MCG TABLET (0.1MG) PO SCH (08:58)
[2019-02-12] MEDS: OMEGA-3 1000MG CAPSULE PO SCH (08:58)
[2019-02-12] MEDS: THIAMINE 100 MG TAB PO SCH ×2 (08:58→20:07)
[2019-02-12] MEDS: MULTIVITAMINS/MINERALS THERAP 1 TAB PO SCH (08:59)
[2019-02-12] MEDS: FOLIC ACID 1 MG TAB PO SCH (08:59)
[2019-02-12] MEDS: APIXABAN 5 MG TAB (ELIQUIS) PO SCH ×2 (08:59→20:07)
[2019-02-12] MEDS: POTASSIUM CHLORIDE 10 MEQ SR TABLET PO SCH ×3 (08:59→20:07)
[2019-02-12] MEDS: DIGOXIN 0.125 MG TAB PO SCH (08:59)
[2019-02-12] MEDS: K-PHOS NEUTRAL 250MG TABLET (SOD.PHOSPHATE/POT.PHOSPHATE) PO SCH ×3 (09:05→20:07)
[2019-02-12] MEDS ORDERED: HYDROMORPHONE HCL 0.5 MG/ 0.5 ML SYRINGE (J1170 PER 1) IV PRN (12:00)
[2019-02-12 12:22] VITALS: BP 124/62
--- NOTE | 2019-02-12 15:27 | IPN ---
DATE: 02/11/2019 HISTORY: The patient was admitted with fluid overload and evidence for possible sepsis. I have been consulted to evaluate him regarding possible abscess of the left calf. He was seen at about midnight and an MRI of the leg was ordered to look for any evidence of abscess. Vital signs: Show that the patient had a maximum temperature (t-max) yesterday evening of 104.3. He has been afebrile since midnight. Intake and output shows that he has diuresed some fluid since arrival, though not a dramatic amount. He is taking liquids well. PHYSICAL EXAMINATION: Examination of the lower extremities show that he has an area of patchy purple discoloration about the size of a palm of the hand on the medial aspect of the left calf. He has fairly marked edema of both lower legs, ankles and feet. The edema may be ever so slightly greater on the left. He is tender in the area of discoloration, but also in other areas of the left calf on the lateral aspect for instance. There is no definite fluctuance identified. There is no evidence of blistering. Laboratory studies today show white count of 14,000, hemoglobin 12, hematocrit 38, and a platelet count of 168,000. His chemistry profile showed normal electrolytes with BUN of 50, creatinine 2 and glucose of 140. Liver function tests remain elevated. MRI result was that he was noted to have some significant edema of the lower leg. There was an intramuscular edema noted as well but there was no abscess or drainable fluid collection identified. IMPRESSION: The patient's leg does not appear to be changed significantly since approximately 12 hours earlier. There is no definite drainable collection identified, either by exam or MRI. RECOMMENDATIONS: I would recommend continuing the antibiotics and monitor his leg. It is possible that he will develop an area of infection significant enough to warrant drainage but he is not in need of drainage at this time. ADRIANA
--- NOTE | 2019-02-12 17:11 | IPNPDOC ---
Date Seen The patient was seen on 02/12/19. Progress Note SUBJECTIVE: 58-year-old male with past medical history of CHF (EF 20%), atrial fibrillation, hypertension, severe aortic insufficiency was admitted for acute on chronic congestive heart failure and left lower showing cellulitis. Patient was treated with IV Lasix and reports significant improvement in dyspnea since presentation. Currently is resting comfortably in bed, has good urine output, w ithout any additional was at this time. He did get out of bed to Ambien with physical therapy, reports excessive dyspnea on exertion, although ambulation is significantly improved from yesterday. He denies any chest pain, nausea, vomiting, abdominal pain or diarrhea at this time. 02/12/2019 Patient comfortable, responding really well to IV Lasix, has put out 3 L so far today, reports significant improvement in dyspnea. 10 point review of systems negative except for above PHYSICAL EXAMINATION: VITAL SIGNS: Please see below. GENERAL: No distress, obese HEENT: Normocephalic, atraumatic, moist mucous membranes NECK: Supple CARDIOVASCULAR EXAMINATION: S1, S2, distant RESPIRATORY EXAMINATION: Diminished, scattered rhonchi, no wheezing ABDOMINAL EXAMINATION: Soft, nontender, nondistended, positive bowel sounds EXTREMITIES: Bilateral lower extremity pitting edema, left villaseñor with erythematous patch, warm and tender to palpation SKIN: No rash NEUROLOGICAL EXAMINATION: Alert and oriented 3, no focal deficits PSYCHIATRIC EXAMINATION: Calm and cooperative LABORATORY DATA, IMAGING STUDIES, MICROBIOLOGY: Please see below. Echocardiogram: No. DVT prophylaxis ordered?: no ASSESSMENT AND PLAN: 58-year-old male with past medical history of CHF, atrial fibrillation, hypertension, severe aortic insufficiency was admitted for acute on chronic CHF exacerbation and cellulitis. PROBLEMS: 1. Acute on chronic systolic CHF: EF 20%, having good urine output, continue Lasix 40 mg IV twice a day, monitor I's and O's, fluid restriction, weight daily. Given significant rise in BUN and high urine output I am concerned about contraction alkalosis with further diuresis, will give Diamox 250 mg every 6 hours 2 doses. Cardiology consult appreciated 2. Left lower extremity Cellulitis: MRSA PCR negative, Continue Zosyn, will monitor for improvement. 3. Atrial fibrillation: Continue Eliquis for anticoagulation, continue metoprolol and digoxin for rate control. 4. Hypertension: Continue metoprolol 5. Hypothyroidism: Continue levothyroxine 6. Acute on chronic kidney disease: Due to Cardiorenal syndrome, improving with diuresis. DVT Proflex: Eliquis GI prophylaxis: Not needed VS, I&O, 24H, Fishbone Vital Signs/I&O Vital Signs Date Time Temp Pulse Resp B/P (MAP) Pulse Ox O2 Delivery O2 Flow Rate FiO2 02/12/19 16:29 18 02/12/19 16:00 2.0 02/12/19 12:25 95 Nasal Cannula 02/12/19 12:22 98.0 97 124/62 (82) 02/11/19 04:00 96 I&O- Last 24 Hours up to 6 AM 02/12/19 05:59 Intake Total 1550 ml Output Total 3200 ml Balance -1650 ml Laboratory Data 24H LABS Laboratory Tests 2 02/12/19 04:24: Nucleated Red Blood Cells % (auto) 0.0, Anion Gap 7L, Glomerular Filtration Rate 52.0, Calcium Level 8.0L, Phosphorus Level 2.3L, Magnesium Level 2.1, Total Bilirubin 2.0H, Aspartate Amino Transf (AST/SGOT) 221H, Alanine Aminotransferase (ALT/SGPT) 306H, Alkaline Phosphatase 126H, Total Protein 5.5L, Albumin 2.5L, Albumin/Globulin Ratio 0.83L CBC/BMP Laboratory Tests 02/12/19 04:24 Microbiology Microbiology 02/10/19 Blood Culture - Preliminary, Resulted No growth after 24 hours . All specim... 02/10/19 Blood Culture - Preliminary, Resulted No Growth after 48 hours. All Specime... ALEJANDRA TOLENTINO MD Feb 12, 2019 17:11
[2019-02-12] MEDS: AcetaZOLAMIDE 250 MG TAB PO SCH ×2 (18:19→23:29)
[2019-02-12 20:00] VITALS: BP 132/74
[2019-02-13] VITALS (8 sets, daily range): BP systolic 107–140; BP diastolic 69–82
[2019-02-13 05:03] LABS: HEMATOCRIT 39.5 % (42.0-52.0); HEMOGLOBIN 12.3 g/dl (13.5-17.5); MEAN CORPUSCULAR HEMOGLOBIN 29.4 pg (27.0-33.0); MEAN CORPUSCULAR HGB CONC 31.1 g/dl (32.0-36.5); MEAN CORPUSCULAR VOLUME 94.5 fl (80.0-96.0); PLATELET COUNT, AUTOMATED 184 10^3/uL (150-450); RED BLOOD COUNT 4.18 10^6/uL (4.30-6.10); WHITE BLOOD COUNT 15.1 10^3/uL (4.0-10.0)
[2019-02-13] MEDS: PIPERACILLIN/TAZOBACTAM SOD 3.375 GM in D5W MINI-BAG PLUS 50 ML IV SCH ×3 (05:09→21:28)
[2019-02-13] MEDS: PERCOCET 5MG/325MG TAB PO PRN ×2 (05:11→16:12)
[2019-02-13 05:34] LABS: ALBUMIN 2.3 GM/DL (3.2-5.2); BILIRUBIN,TOTAL 1.8 MG/DL (0.2-1.0); CALCIUM LEVEL 8.5 MG/DL (8.8-10.2); CREATININE FOR GFR 1.43 MG/DL (0.70-1.30); GLOMERULAR FILTRATION RATE 53.7 (>49); MAGNESIUM LEVEL 2.1 MG/DL (1.8-2.4); PHOSPHORUS LEVEL 3.1 MG/DL (2.5-4.9); POTASSIUM SERUM 4.1 MEQ/L (3.5-5.1); TOTAL PROTEIN 6.3 GM/DL (6.4-8.2)
--- NOTE | 2019-02-13 08:31 | IPN ---
DATE: 02/13/2019 Mr. Wadsworth is feeling better. He has less pain in his left lower extremity and his mobility is a little better and he feels less short of breath. He remains in atrial fibrillation with reasonably controlled rate. Vital signs this morning are 107/69 and heart rate in the 90s. He is afebrile. Saturation 95% on 2 liters. Fluid balance was recorded yesterday as negative almost 4 liters. Weight has not been documented this morning as yet. Balance is though about 600 mL negative. His triple-lumen catheter was removed yesterday. Lungs are reasonably clear. I do not appreciate any wheezing or crackles. Heart exam reveals irregular rhythm. I still can barely appreciate murmur of aortic insufficiency. No justin gallop. Abdomen is soft. No shifting dullness. Extremities still have significant edema, left more than right, but the redness surrounding his left calf is slowly receding. Neurologically, there is weakness of lower extremities, but otherwise is intact. Alert and appropriate and moves all four extremities. Laboratories: Basic metabolic panel with sodium 138, potassium 4.1, BUN 37, creatinine 1.43, for calculated GFR 54, glucose 105, magnesium 2.1, and bilirubin 1.8 that is trending down, but surprisingly transaminases are higher today than yesterday, AST 261 and ALT 401 and alkaline phosphatase is 149. Albumin is 2.3. CBC: WBC count 15.1, hemoglobin 12.3, hematocrit 39, platelet count 184,000. Current blood cultures from admission remain negative. ASSESSMENT/PLAN: Mr. Wadsworth is a 58-year-old man who presented approximately 2 months ago or so with atrial fibrillation with rapid ventricular rate (RVR) and heart failure. He was found to have severe left ventricular systolic dysfunction, moderately severe aortic insufficiency and very dilated descending aorta. He then presented to our facility on 02/10/2019 in the setting of sepsis likely originating from cellulitis in the left lower extremity associated with justin heart failure. He responded favorably to administration of antibiotics and diuretics. He is still not euvolemic and I think we should continue diuresis. Because his renal function continues to improve even so slightly, I will try to introduce a very small dose of NORI inhibitor as he is in the hospital and we can monitor his renal function. Otherwise, the rate is still mildly tachycardiac, but I do believe that it is likely to improve with improving compensation of heart failure. I think that he will need to stay in the hospital several more days until his congestive heart failure status is more controlled. Further out on an outpatient basis, we plan to perform coronary angiography because he very likely will need to have aortic valve and ascending aortic replacement. I will sign off the patient to weekend coverage, which I believe is Dr. Ram. Please to not forget to place the patient back on his LifeVest when he will be leaving the hospital.
[2019-02-13 08:41] LABS: ABG BASE EXCESS 7.2 (-2.0-2.0); ABG HCO3 33.9 MEQ/L (22.0-26.0); ABG O2 SATURATION 95.4 % (95.0-99.0); ABG PARTIAL PRESSURE O2 76.9 mmHg (75.0-100.0); ABG TOTAL CO2 35.6 MEQ/L (23.0-31.0); ABG pH (ARTERIAL) 7.392 UNITS (7.350-7.450)
[2019-02-13] MEDS: APIXABAN 5 MG TAB (ELIQUIS) PO SCH ×2 (09:11→21:27)
[2019-02-13] MEDS: VITAMIN D 1,000 INTERNATIONAL UNITS TABLET PO SCH (09:11)
[2019-02-13] MEDS: DIGOXIN 0.125 MG TAB PO SCH (09:11)
[2019-02-13] MEDS: METOPROLOL SUCC (TopROL XL) 50MG **XL** TAB PO SCH (09:12)
[2019-02-13] MEDS: MULTIVITAMINS/MINERALS THERAP 1 TAB PO SCH (09:12)
[2019-02-13] MEDS: LEVOTHYROXINE 100MCG TABLET (0.1MG) PO SCH (09:12)
[2019-02-13] MEDS: THIAMINE 100 MG TAB PO SCH ×2 (09:12→21:27)
[2019-02-13] MEDS: FOLIC ACID 1 MG TAB PO SCH (09:12)
[2019-02-13] MEDS: buPROPion **SR TABLET** (ZYBAN) 150MG PO SCH (10:38)
[2019-02-13] MEDS: OMEGA-3 1000MG CAPSULE PO SCH (10:38)
[2019-02-13] MEDS: FUROSEMIDE 40 MG/4 ML VIAL (J1940) IV SCH (12:24)
--- NOTE | 2019-02-13 19:59 | IPNPDOC ---
Date Seen The patient was seen on 02/13/19. Progress Note SUBJECTIVE: 58-year-old male with past medical history of CHF (EF 20%), atrial fibrillation, hypertension, severe aortic insufficiency was admitted for acute on chronic congestive heart failure and left lower showing cellulitis. Patient was treated with IV Lasix and reports significant improvement in dyspnea since presentation. Currently is resting comfortably in bed, has good urine output, w ithout any additional was at this time. He did get out of bed to Ambien with physical therapy, reports excessive dyspnea on exertion, although ambulation is significantly improved from yesterday. He denies any chest pain, nausea, vomiting, abdominal pain or diarrhea at this time. 02/12/2019 Patient comfortable, responding really well to IV Lasix, has put out 3 L so far today, reports significant improvement in dyspnea. 02/13/2019 Patient comfortable, good urine output, without any complaints, working with physical therapy. 10 point review of systems negative except for above PHYSICAL EXAMINATION: VITAL SIGNS: Please see below. GENERAL: No distress, obese HEENT: Normocephalic, atraumatic, moist mucous membranes NECK: Supple CARDIOVASCULAR EXAMINATION: S1, S2, distant RESPIRATORY EXAMINATION: Diminished, scattered rhonchi, no wheezing ABDOMINAL EXAMINATION: Soft, nontender, nondistended, positive bowel sounds EXTREMITIES: Bilateral lower extremity pitting edema, left villaseñor with erythe matous patch, warm and tender to palpation SKIN: No rash NEUROLOGICAL EXAMINATION: Alert and oriented 3, no focal deficits PSYCHIATRIC EXAMINATION: Calm and cooperative LABORATORY DATA, IMAGING STUDIES, MICROBIOLOGY: Please see below. Echocardiogram: No. DVT prophylaxis ordered?: no ASSESSMENT AND PLAN: 58-year-old male with past medical history of CHF, atrial fibrillation, hypertension, severe aortic insufficiency was admitted for acute on chronic CHF exacerbation and cellulitis. PROBLEMS: 1. Acute on chronic systolic CHF: EF 20%, having good urine output, continue Lasix 40 mg IV twice a day, monitor I's and O's, fluid restriction, weight daily. Cardiology consult appreciated 2. Left lower extremity Cellulitis: MRSA PCR negative, Continue Zosyn, will monitor for improvement. 3. Atrial fibrillation: Continue Eliquis for anticoagulation, continue metoprolol and digoxin for rate control. 4. Hypertension: Continue metoprolol 5. Hypothyroidism: Continue levothyroxine 6. Acute on chronic kidney disease: Due to Cardiorenal syndrome, improving with diuresis. DVT Proflex: Eliquis GI prophylaxis: Not needed VS, I&O, 24H, Fishbone Vital Signs/I&O Vital Signs Date Time Temp Pulse Resp B/P (MAP) Pulse Ox O2 Delivery O2 Flow Rate FiO2 02/13/19 16:42 18 Nasal Cannula 2.0 02/13/19 16:00 97.8 87 114/69 (84) 93 02/11/19 04:00 96 I&O- Last 24 Hours up to 6 AM 02/13/19 06:00 Intake Total 920 ml Output Total 2535 ml Balance -1615 ml Laboratory Data 24H LABS Laboratory Tests 2 02/13/19 04:53: Nucleated Red Blood Cells % (auto) 0.0, Anion Gap 3L, Glomerular Filtration Rate 53.7, Calcium Level 8.5L, Phosphorus Level 3.1#, Magnesium Level 2.1, Total Bilirubin 1.8H, Aspartate Amino Transf (AST/SGOT) 261H, Alanine Aminotransferase (ALT/SGPT) 401H, Alkaline Phosphatase 149H, Total Protein 6.3L, Albumin 2.3L, Albumin/Globulin Ratio 0.58L 02/13/19 08:25: Blood Gas Bicarbonate Standard 31.0H, Arterial Blood pH 7.392, Arterial Blood Partial Pressure CO2 57.0H, Arterial Blood Partial Pressure O2 76.9, Arterial Blood Total CO2 35.6H, Arterial Blood HCO3 33.9H, Arterial Blood Base Excess 7.2H, Arterial Blood Oxygen Saturation 95.4 CBC/BMP Laboratory Tests 02/13/19 04:53 Microbiology Microbiology 02/10/19 Blood Culture - Preliminary, Resulted No Growth after 72 hours. All specime... 02/10/19 Blood Culture - Preliminary, Resulted No Growth after 72 hours. All specime... ALEJANDRA TOLENTINO MD Feb 13, 2019 19:59
[2019-02-13] MEDS: LISINOPRIL *2.5 MG* TAB PO SCH (21:27)
[2019-02-14] MEDS: FUROSEMIDE 40 MG/4 ML VIAL (J1940) IV SCH ×2 (00:14→13:04)
[2019-02-14] MEDS: PIPERACILLIN/TAZOBACTAM SOD 3.375 GM in D5W MINI-BAG PLUS 50 ML IV SCH ×4 (03:02→20:46)
[2019-02-14 04:00] VITALS: BP 141/76
[2019-02-14 05:16] LABS: HEMATOCRIT 38.3 % (42.0-52.0); HEMOGLOBIN 12.4 g/dl (13.5-17.5); MEAN CORPUSCULAR HEMOGLOBIN 29.3 pg (27.0-33.0); MEAN CORPUSCULAR HGB CONC 32.4 g/dl (32.0-36.5); MEAN CORPUSCULAR VOLUME 90.5 fl (80.0-96.0); PLATELET COUNT, AUTOMATED 197 10^3/uL (150-450); RED BLOOD COUNT 4.23 10^6/uL (4.30-6.10); WHITE BLOOD COUNT 16.9 10^3/uL (4.0-10.0)
[2019-02-14 05:32] LABS: CALCIUM LEVEL 8.7 MG/DL (8.8-10.2); CREATININE FOR GFR 1.34 MG/DL (0.70-1.30); GLOMERULAR FILTRATION RATE 57.9 (>49); MAGNESIUM LEVEL 2.1 MG/DL (1.8-2.4); PHOSPHORUS LEVEL 3.3 MG/DL (2.5-4.9); POTASSIUM SERUM 3.7 MEQ/L (3.5-5.1)
[2019-02-14 06:03] LABS: ABG BASE EXCESS 5.7 (-2.0-2.0); ABG HCO3 31.8 MEQ/L (22.0-26.0); ABG O2 SATURATION 97.5 % (95.0-99.0); ABG PARTIAL PRESSURE CO2 52.4 mmHg (35.0-45.0); ABG PARTIAL PRESSURE O2 91.9 mmHg (75.0-100.0); ABG STANDARD HCO3 29.6 MEQ/L (22.0-26.0); ABG TOTAL CO2 33.4 MEQ/L (23.0-31.0); ABG pH (ARTERIAL) 7.401 UNITS (7.350-7.450)
[2019-02-14 08:00] VITALS: BP 138/84
[2019-02-14] MEDS: PERCOCET 5MG/325MG TAB PO PRN ×2 (08:29→21:10)
[2019-02-14] MEDS: METOPROLOL SUCC (TopROL XL) 50MG **XL** TAB PO SCH (08:30)
[2019-02-14] MEDS: OMEGA-3 1000MG CAPSULE PO SCH (08:30)
[2019-02-14] MEDS: buPROPion **SR TABLET** (ZYBAN) 150MG PO SCH (08:30)
[2019-02-14] MEDS: VITAMIN D 1,000 INTERNATIONAL UNITS TABLET PO SCH (08:30)
[2019-02-14] MEDS: DIGOXIN 0.125 MG TAB PO SCH (08:30)
[2019-02-14] MEDS: THIAMINE 100 MG TAB PO SCH ×2 (08:31→20:46)
[2019-02-14] MEDS: MULTIVITAMINS/MINERALS THERAP 1 TAB PO SCH (08:31)
[2019-02-14] MEDS: APIXABAN 5 MG TAB (ELIQUIS) PO SCH ×2 (08:31→20:46)
[2019-02-14] MEDS: FOLIC ACID 1 MG TAB PO SCH (08:31)
[2019-02-14] MEDS: LEVOTHYROXINE 100MCG TABLET (0.1MG) PO SCH (08:31)
[2019-02-14] MEDS: POTASSIUM CHLORIDE 10 MEQ SR TABLET PO SCH ×2 (08:31→15:39)
--- NOTE | 2019-02-14 11:44 | REP ---
Clinical: Left lower extremity pain . Technique: Turner scale and color Doppler evaluation using linear high frequency transducer. Findings: Ultrasound examination of the left lower extremity deep venous structures from the common femoral vein to the popliteal vein demonstrates normal compressibility flow and wave patterns in response to respiration and augmentation. There is no evidence for deep venous thrombosis. Incidental Palomo's cyst in the popliteal fossa measures 5.2 x 1.2 x 2.2 cm. Impression: No evidence for deep venous thrombosis. Palomo's cyst in the popliteal fossa. Electronically Signed by Simone Anders MD 02/14/2019 11:36 A
[2019-02-14 12:00] VITALS: BP 135/74
--- NOTE | 2019-02-14 14:06 | IPN ---
DATE OF SERVICE: 02/14/2019 Mr. Ball was seen today, he was in supine in bed in no acute distress at rest. He was initially admitted on 02/10/2019 with cellulitis of the left lower extremity, sepsis, atrial fibrillation with a rapid ventricular rate, and decompensated congestive heart failure secondary to left ventricular systolic dysfunction. His cardiac meds have been readjusted, and he is being treated for his cellulitis. He thinks the left leg has improved. He stated he has lost significant amount of weight since in the hospital. He was started on the current angiotensin-converting enzyme (NORI) inhibitor yesterday in the evening. He has been having good urinary output and he is glomerular filtration rate (GFR) has been improving. He denies any chest pain or palpitations, orthopnea. Prior to coming to the hospital, he was having orthopnea, increased pedal edema, increased shortness of breath. He denies any fever or chills since in the hospital. He has no nausea or vomiting, diarrhea, melena, or hematemesis. He denies any focal manifestation. Earlier this morning, he had ultrasound of the left leg done and it revealed a left Palomo cyst, no evidence of deep venous thrombosis (DVT). PHYSICAL EXAMINATION: The patient is alert and oriented, in no acute distress at rest, and his most recent vital signs revealed a blood pressure of 138/84 with a pulse of 70-100 on telemetry, respiration 18-20, and his maximum temperature is 97.7 degrees Fahrenheit with an oxygen saturation of 95% on 2 liters cannula. He had a negative fluid balance of 2.1 liters for 02/13/2019. His weight yesterday was 113.5 kg and this morning is 112.5 kg. Examination of the head: Atraumatic. Neck: Did not reveal any carotid bruits. The lungs did not reveal any wheezing or crackles. The heart examination revealed an irregular sounds without gallops. The point of maximum impulse (PMI) is displaced inferiorly and laterally. There is no rub. I could not appreciate any murmurs. Abdomen is soft and nontender. Extremities: Revealed trace to +1 right lower leg edema and +2 left lower leg edema with redness and discoloration of the skin extended on the entire leg. Neurological examination is negative for focal deficit. LABS: A CBC done this morning revealed a WBC of 16.9, hemoglobin 12.5, hematocrit 38.3, and platelet 197,000. BMP revealed a sodium of 135, potassium 3.7, chloride 98, CO2 33, BUN 30, creatinine 1.34, GFR 57.9, and fasting glucose 90 with a calcium of 8.7. Magnesium is 2.1. Telemetry was reviewed and revealed atrial fibrillation with a controlled ventricular rate. There is a three beat wide complex one of premature ventricular contractions (PVCs). No prior since his hospitalization. IMPRESSION: 1. Sepsis secondary to cellulitis of the left lower extremity, and this seems to be improving, even though I have noticed that his WBC is slightly higher on today's CBC. He has no fever. This is being addressed by his hospitalist. 2. Status post decompensated congestive heart failure, acute and chronic secondary to left ventricular systolic dysfunction and due to sepsis and uncontrolled atrial fibrillation. It seems that his condition is improving and currently on angiotensin-converting enzyme (NORI) inhibitor as well as a beta doris. He is also on digoxin and diuretics. Will continue current management and monitor closely his BUN, creatinine and serum potassium. After reviewing his blood work in the morning, I probably will increase his NORI inhibitor. In the future, he might benefit from spirolactone based on the RALES trial. He also has a LifeVest he has been using. If he is transferred out of progressive care unit (PCU), he is to be on telemetry. 3. Atrial fibrillation. His ventricular rate seems to be under control. He is on beta-doris with metoprolol succinate and also on digoxin. He is on apixaban for prevention of thromboembolic events. No bleeding has been reported. 4. Hypertension. He can be monitored on current meds and, as mentioned above, if his labs remain normal and blood pressure remains the same, I will increase the lisinopril on 02/15/2019. 5. Hypothyroidism, on supplement. 6. History of valvular heart disease involving the aortic valve with moderately severe aortic regurgitation and a markedly dilated ascending aorta diagnosed about 2 months ago. This is being addressed, and according to Dr. Prather's note, upon ,he will proceed with a cardiac catheterization for further evaluation. 7. Chronic kidney disease. This is improving. He will be monitored while on the nori inhibitor. 8. Abnormal liver function tests (LFTs). This will be reassessed in a.m., 02/15/2019. It was a pleasure to participate the care of Mr. Aguilar Wadsworth for his underlying cardiac condition. I will continue to monitor him along with you while in the hospital. Please do not seated to call if any questions.
[2019-02-14 16:00] VITALS: BP 150/72
--- NOTE | 2019-02-14 17:47 | IPNPDOC ---
Date Seen The patient was seen on 02/14/19. Progress Note SUBJECTIVE: 58-year-old male with past medical history of CHF (EF 20%), atrial fibrillation, hypertension, severe aortic insufficiency was admitted for acute on chronic congestive heart failure and left lower showing cellulitis. Patient was treated with IV Lasix and reports significant improvement in dyspnea since presentation. Currently is resting comfortably in bed, has good urine output, w ithout any additional was at this time. He did get out of bed to Ambien with physical therapy, reports excessive dyspnea on exertion, although ambulation is significantly improved from yesterday. He denies any chest pain, nausea, vomiting, abdominal pain or diarrhea at this time. 02/12/2019 Patient comfortable, responding really well to IV Lasix, has put out 3 L so far today, reports significant improvement in dyspnea. 02/13/2019 Patient comfortable, good urine output, without any complaints, working with physical therapy. 02/14/2019 Patient comfortable in bed, reports increased ambulation, continues to have left lower extremity pain and swelling, especially when weightbearing, no other c omplaints. 10 point review of systems negative except for above PHYSICAL EXAMINATION: VITAL SIGNS: Please see below. GENERAL: No distress, obese HEENT: Normocephalic, atraumatic, moist mucous membranes NECK: Supple CARDIOVASCULAR EXAMINATION: S1, S2, distant RESPIRATORY EXAMINATION: Diminished, scattered rhonchi, no wheezing ABDOMINAL EXAMINATION: Soft, nontender, nondistended, positive bowel sounds EXTREMITIES: Bilateral lower extremity pitting edema, left villaseñor with erythematous patch, warm and tender to palpation SKIN: No rash NEUROLOGICAL EXAMINATION: Alert and oriented 3, no focal deficits PSYCHIATRIC EXAMINATION: Calm and cooperative LABORATORY DATA, IMAGING STUDIES, MICROBIOLOGY: Please see below. Echocardiogram: No. DVT prophylaxis ordered?: no ASSESSMENT AND PLAN: 58-year-old male with past medical history of CHF, atrial fibrillation, hypertension, severe aortic insufficiency was admitted for acute on chronic CHF exacerbation and cellulitis. PROBLEMS: 1. Acute on chronic systolic CHF: EF 20%, having good urine output, has lost about 10 kg of weight, still volume overloaded, continue Lasix 40 mg IV twice a day, monitor I's and O's, fluid restriction, weight daily. Cardiology consult appreciated 2. Left lower extremity Cellulitis: MRSA PCR negative, Continue Zosyn, improvement is slower than expected, remains significantly tender to palpation, will obtain repeat MRI and lower extremity Doppler. 3. Atrial fibrillation: Continue Eliquis for anticoagulation, continue metoprolol and digoxin for rate control. 4. Hypertension: Continue metoprolol 5. Hypothyroidism: Continue levothyroxine 6. Acute on chronic kidney disease: Due to Cardiorenal syndrome, resolved with diuresis. DVT Proflex: Eliquis GI prophylaxis: Not needed VS, I&O, 24H, Fishbone Vital Signs/I&O Vital Signs Date Time Temp Pulse Resp B/P (MAP) Pulse Ox O2 Delivery O2 Flow Rate FiO2 02/14/19 16:00 1.0 02/14/19 16:00 97.6 92 18 150/72 (98) 98 Nasal Cannula 02/11/19 04:00 96 I&O- Last 24 Hours up to 6 AM 02/14/19 06:00 Intake Total 570 ml Output Total 3000 ml Balance -2430 ml Laboratory Data 24H LABS Laboratory Tests 2 02/14/19 04:46: Nucleated Red Blood Cells % (auto) 0.0, Anion Gap 4L, Glomerular Filtration Rate 57.9, Calcium Level 8.7L, Phosphorus Level 3.3, Magnesium Level 2.1 02/14/19 05:58: Blood Gas Bicarbonate Standard 29.6H, Arterial Blood pH 7.401, Arterial Blood Partial Pressure CO2 52.4H, Arterial Blood Partial Pressure O2 91.9, Arterial Blood Total CO2 33.4H, Arterial Blood HCO3 31.8H, Arterial Blood Base Excess 5.7H, Arterial Blood Oxygen Saturation 97.5 CBC/BMP Laboratory Tests 02/14/19 04:46 Microbiology Microbiology 02/10/19 Blood Culture - Preliminary, Resulted No Growth after 72 hours. All specime... 02/10/19 Blood Culture - Preliminary, Resulted No Growth after 72 hours. All specime... ALEJANDRA TOLENTINO MD Feb 14, 2019 17:47
[2019-02-14 20:00] VITALS: BP 135/75
[2019-02-14] MEDS: LISINOPRIL *2.5 MG* TAB PO SCH (20:46)
[2019-02-15] VITALS (7 sets, daily range): BP systolic 125–147; BP diastolic 71–90
[2019-02-15] MEDS: PIPERACILLIN/TAZOBACTAM SOD 3.375 GM in D5W MINI-BAG PLUS 50 ML IV SCH ×4 (03:42→20:51)
[2019-02-15 05:43] LABS: HEMATOCRIT 38.2 % (42.0-52.0); HEMOGLOBIN 12.5 g/dl (13.5-17.5); MEAN CORPUSCULAR HEMOGLOBIN 29.3 pg (27.0-33.0); MEAN CORPUSCULAR HGB CONC 32.7 g/dl (32.0-36.5); MEAN CORPUSCULAR VOLUME 89.7 fl (80.0-96.0); PLATELET COUNT, AUTOMATED 199 10^3/uL (150-450); RED BLOOD COUNT 4.26 10^6/uL (4.30-6.10); WHITE BLOOD COUNT 12.8 10^3/uL (4.0-10.0)
[2019-02-15 06:13] LABS: ALBUMIN 2.1 GM/DL (3.2-5.2); ALT/SGPT 538 U/L (12-78); BILIRUBIN,DIRECT 1.3 MG/DL (0.0-0.2); BILIRUBIN,TOTAL 2.1 MG/DL (0.2-1.0); BLOOD UREA NITROGEN 32 MG/DL (7-18); CALCIUM LEVEL 8.8 MG/DL (8.8-10.2); CARBON DIOXIDE LEVEL 31 MEQ/L (21-32); CHLORIDE LEVEL 100 MEQ/L (98-107); CREATININE FOR GFR 1.24 MG/DL (0.70-1.30); GLOMERULAR FILTRATION RATE > 60.0 (>49); GLUCOSE, FASTING 125 MG/DL (70-100); MAGNESIUM LEVEL 2.2 MG/DL (1.8-2.4); PHOSPHORUS LEVEL 3.3 MG/DL (2.5-4.9); POTASSIUM SERUM 3.7 MEQ/L (3.5-5.1); SODIUM LEVEL 137 MEQ/L (136-145); TOTAL PROTEIN 6.3 GM/DL (6.4-8.2)
[2019-02-15 08:22] LABS: DIGOXIN LEVEL 0.7 NG/ML (0.5-2.0)
[2019-02-15 08:41] LABS: INR 1.88; PROTHROMBIN TIME 21.4 SECONDS (11.8-14.0)
[2019-02-15 08:42] LABS: PARTIAL THROMBOPLASTIN TIME 38.1 SECONDS (25.0-38.4)
[2019-02-15] MEDS: VITAMIN D 1,000 INTERNATIONAL UNITS TABLET PO SCH (08:52)
[2019-02-15] MEDS: DIGOXIN 0.125 MG TAB PO SCH (08:52)
[2019-02-15] MEDS: POTASSIUM CHLORIDE 10 MEQ SR TABLET PO SCH ×2 (08:53→15:13)
[2019-02-15] MEDS: APIXABAN 5 MG TAB (ELIQUIS) PO SCH ×2 (08:53→20:51)
[2019-02-15] MEDS: METOPROLOL SUCC (TopROL XL) 50MG **XL** TAB PO SCH (08:53)
[2019-02-15] MEDS: FOLIC ACID 1 MG TAB PO SCH (08:53)
[2019-02-15] MEDS: MULTIVITAMINS/MINERALS THERAP 1 TAB PO SCH (08:53)
[2019-02-15] MEDS: LEVOTHYROXINE 100MCG TABLET (0.1MG) PO SCH (08:53)
[2019-02-15] MEDS: OMEGA-3 1000MG CAPSULE PO SCH (09:00)
[2019-02-15] MEDS: buPROPion **SR TABLET** (ZYBAN) 150MG PO SCH (09:35)
[2019-02-15] MEDS: PERCOCET 5MG/325MG TAB PO PRN ×2 (09:35→20:51)
[2019-02-15] MEDS ORDERED: SLF 3 ML SYR IV PRN (12:00)
[2019-02-15] MEDS: FUROSEMIDE 40 MG/4 ML VIAL (J1940) IV SCH ×2 (15:14)
[2019-02-15] MEDS: SLF 3 ML SYR IV SCH ×2 (15:15→20:51)
--- NOTE | 2019-02-15 15:33 | IPN ---
DATE: 02/15/2019 Mr. Wadsworth was seen earlier this morning, he was supine in bed in no acute distress at rest. He denies any chest pain, shortness of breath, palpitations. He has no orthopnea or paroxysmal nocturnal dyspnea (PND). His pedal edema, he stated, has improved. He denies any abdominal pain. There is no report of nausea or vomiting. There is no report of bleeding. He was initially admitted on 02/10/2019 with sepsis secondary to cellulitis of the left lower extremity, uncontrolled atrial fibrillation, and decompensated congestive heart failure related to above. He has a history of severely depressed global left ventricular systolic function with significant, moderately severe valvular heart disease involving the aortic valve. He has been on IV antibiotics and also his cardiac medications are being readjusted. 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 He also on admission was found to have worsening renal function and this is improving. He was started on the current angiotensin-converting enzyme (NORI) inhibitor about 2 days ago. PHYSICAL EXAMINATION: The patient is alert and oriented, in no acute distress at rest, and very pleasant. His vital signs earlier today revealed a blood pressure of 133/77 with a pulse of 82, respirations 18, and his maximum temperature is 97.6 degrees Fahrenheit with an oxygen saturation of 93% on 2 liters nasal cannula. He has a negative fluid balance of 2.1 liters for 02/14/2019. His weight today is 111 kg and yesterday it was 112.8 kg. Examination of the head: Atraumatic. Neck: Neck is supple and no carotid bruits. Lungs: Did not reveal any wheezing or crackles. The heart examination revealed an irregular heart sound without gallops. The point of maximum impulse (PMI) is displaced inferiorly and laterally. There is no rub. Abdomen is soft and nontender, bowel sounds are active. Extremities revealed trace to +1 right lower extremity edema and the left lower extremity is about +2 involving the entire leg. There is less redness noted on physical examination at the level of the left leg when compared to yesterday, 02/14/2019. LABORATORY DATA: CBC done today revealed a WBC of 12.8, hemoglobin 12.5, hematocrit 38.2 and platelets 199,000. BMP revealed a sodium of 137, potassium 3.7, chloride 100, CO2 of 31, BUN 32, creatinine 1.24, GFR more than 60, fasting glucose 125 and calcium 8.8. Liver enzymes done today revealed a total bilirubin of 2.1, direct bilirubin 1.3, AST 323, ALT 538, alkaline phosphatase 196, total protein 6.3, albumin 2.1. Serum magnesium today is 2.2. Telemetry revealed atrial fibrillation with a controlled ventricular rate. IMPRESSION: 1. Left leg cellulitis, severe, complicated by sepsis. The patient is improving with antibiotics, his kidney function is improving as well as his WBC. Examination of the leg locally also revealed some improvement with less redness and less swelling, but he continued to have some discomfort in that leg. This is being monitored closely by hospitalist. 2. Atrial fibrillation: Under control with current medications and continue the same. He is on two AV blocking agent with digoxin and metoprolol succinate. He is on apixaban for prevention of thromboembolic events. No bleeding has been reported. 3. Congestive failure secondary to left ventricular systolic dysfunction, acute and chronic and this has improved significantly. Will continue current management with the IV diuretics. We need to monitor closely his BUN and creatinine and serum potassium. Will continue for now with the current dose of the lisinopril. 4. Hypertension and seems to be under control, and he will be monitored. 5. Hypothyroidism, on supplement. 6. Abnormal liver function tests (LFTs), and this seems to be deteriorating. The etiology was not quite clear, all his abnormal findings on admission are improving but the LFTs. He does have a history of alcoholism. This is being addressed, and the immediate plan is to proceed with an ultrasound of the abdomen later today. If his liver function continues to deteriorate, we shall consider switching the apixaban to dabigatran/Pradaxa. 7. Status post acute on chronic kidney disease and this is improving. It was a pleasure to participate in the care of Mr. Aguilar Wadsworth for his underlying cardiac condition. I will continue to monitor him along with you. Please do not hesitate to call if you have any questions.
--- NOTE | 2019-02-15 15:47 | REP ---
Clinical: Transaminase. Technique: Real time crowe scale ultrasound examination using curved array transducer. Findings: Liver and visualized pancreas are normal in contour, size, echogenicity without focal hepatic or pancreatic lesion identified. The gallbladder demonstrates wall thickening and small polyp without gallstones or pericholecystic fluid. No biliary ductal dilatation is appreciated and the common bile duct measures 4.2 mm diameter. The right kidney is normal in reniform shape without hydronephrosis and measures 11.9 x 5.3 x 5.0 cm. No ascites in the visualized right upper quadrant. Impression: 1. Liver appears normal. 2. Mild likely chronic gallbladder wall thickening with polyp. Electronically Signed by Simone Anders MD 02/15/2019 03:39 P
--- NOTE | 2019-02-15 18:39 | IPNPDOC ---
Date Seen The patient was seen on 02/15/19. Progress Note SUBJECTIVE: 58-year-old male with past medical history of CHF (EF 20%), atrial fibrillation, hypertension, severe aortic insufficiency was admitted for acute on chronic congestive heart failure and left lower showing cellulitis. Patient was treated with IV Lasix and reports significant improvement in dyspnea since presentation. Currently is resting comfortably in bed, has good urine output, w ithout any additional was at this time. He did get out of bed to Ambien with physical therapy, reports excessive dyspnea on exertion, although ambulation is significantly improved from yesterday. He denies any chest pain, nausea, vomiting, abdominal pain or diarrhea at this time. 02/12/2019 Patient comfortable, responding really well to IV Lasix, has put out 3 L so far today, reports significant improvement in dyspnea. 02/13/2019 Patient comfortable, good urine output, without any complaints, working with physical therapy. 02/14/2019 Patient comfortable in bed, reports increased ambulation, continues to have left lower extremity pain and swelling, especially when weightbearing, no other c omplaints. 02/15/2019 Patient did have good urine output, reports significant left lower extreme pain, especially when weightbearing, lower extremity ultrasound showing Palomo's cyst, no other complains. 10 point review of systems negative except for above PHYSICAL EXAMINATION: VITAL SIGNS: Please see below. GENERAL: No distress, obese HEENT: Normocephalic, atraumatic, moist mucous membranes NECK: Supple CARDIOVASCULAR EXAMINATION: S1, S2, distant RESPIRATORY EXAMINATION: Diminished, scattered rhonchi, no wheezing ABDOMINAL EXAMINATION: Soft, nontender, nondistended, positive bowel sounds EXTREMITIES: Bilateral lower extremity pitting edema, left villaseñor with erythematous patch, warm and tender to palpation SKIN: No rash NEUROLOGICAL EXAMINATION: Alert and oriented 3, no focal deficits PSYCHIATRIC EXAMINATION: Calm and cooperative LABORATORY DATA, IMAGING STUDIES, MICROBIOLOGY: Please see below. Echocardiogram: No. DVT prophylaxis ordered?: no ASSESSMENT AND PLAN: 58-year-old male with past medical history of CHF, atrial fibrillation, hypertension, severe aortic insufficiency was admitted for acute on chronic CHF exacerbation and cellulitis. PROBLEMS: 1. Acute on chronic systolic CHF: EF 20%, having good urine output, has lost about 11 kg of weight, still volume overloaded, continue Lasix 40 mg IV twice a day, monitor I's and O's, fluid restriction, weight daily. Cardiology consult appreciated 2. Left lower extremity Cellulitis: MRSA PCR negative, Continue Zosyn, improving, remains significantly tender to palpation, likely worsened by Palomo's cyst, discussed with orthopedic surgery, recommend observation and medical management for now. 3. Atrial fibrillation: Continue Eliquis for anticoagulation, continue metoprolol and digoxin for rate control. 4. Hypertension: Continue metoprolol and lisinopril 5. Hypothyroidism: Continue levothyroxine 6. Acute on chronic kidney disease: Due to Cardiorenal syndrome, resolved with diuresis. DVT Proflex: Eliquis GI prophylaxis: Not needed VS, I&O, 24H, Fishbone Vital Signs/I&O Vital Signs Date Time Temp Pulse Resp B/P (MAP) Pulse Ox O2 Delivery O2 Flow Rate FiO2 02/15/19 16:00 99.0 104 20 132/85 (101) 95 Nasal Cannula 2.0 02/11/19 04:00 96 I&O- Last 24 Hours up to 6 AM 02/15/19 06:00 Intake Total 1080 ml Output Total 2700 ml Balance -1620 ml Laboratory Data 24H LABS Laboratory Tests 2 02/15/19 04:56: Nucleated Red Blood Cells % (auto) 0.0, Anion Gap 6L, Glomerular Filtration Rate > 60.0, Calcium Level 8.8, Phosphorus Level 3.3, Magnesium Level 2.2, Total Bilirubin 2.1H, Direct Bilirubin 1.3H, Aspartate Amino Transf (AST/SGOT) 323H, Alanine Aminotransferase (ALT/SGPT) 538H, Alkaline Phosphatase 196H, Total Protein 6.3L, Albumin 2.1L, Albumin/Globulin Ratio 0.50L, Digoxin Level 0.7 02/15/19 08:11: Prothrombin Time 21.4H, Prothromb Time International Ratio 1.88, Activated Partial Thromboplast Time 38.1 CBC/BMP Laboratory Tests 02/15/19 04:56 Microbiology Microbiology 02/10/19 Blood Culture - Final, Complete NO GROWTH AFTER 5 DAYS 02/10/19 Blood Culture - Final, Complete NO GROWTH AFTER 5 DAYS ALEJANDRA TOLENTINO MD Feb 15, 2019 18:39
[2019-02-15] MEDS: LISINOPRIL *2.5 MG* TAB PO SCH (20:50)
[2019-02-16] MEDS: FUROSEMIDE 40 MG/4 ML VIAL (J1940) IV SCH ×3 (00:09→23:58)
[2019-02-16 04:00] VITALS: BP 130/92
[2019-02-16] MEDS: PIPERACILLIN/TAZOBACTAM SOD 3.375 GM in D5W MINI-BAG PLUS 50 ML IV SCH ×4 (04:00→20:15)
[2019-02-16 04:13] LABS: HEMATOCRIT 40.1 % (42.0-52.0); HEMOGLOBIN 12.9 g/dl (13.5-17.5); MEAN CORPUSCULAR HGB CONC 32.2 g/dl (32.0-36.5); MEAN CORPUSCULAR VOLUME 90.1 fl (80.0-96.0); PLATELET COUNT, AUTOMATED 244 10^3/uL (150-450); RED BLOOD COUNT 4.45 10^6/uL (4.30-6.10); WHITE BLOOD COUNT 13.3 10^3/uL (4.0-10.0)
[2019-02-16 04:29] LABS: HEMOGLOBIN A1c 6.1 %
[2019-02-16 04:31] LABS: ALBUMIN 2.2 GM/DL (3.2-5.2); ALT/SGPT 469 U/L (12-78); BILIRUBIN,TOTAL 2.4 MG/DL (0.2-1.0); BLOOD UREA NITROGEN 32 MG/DL (7-18); CALCIUM LEVEL 8.6 MG/DL (8.8-10.2); CARBON DIOXIDE LEVEL 29 MEQ/L (21-32); CHLORIDE LEVEL 102 MEQ/L (98-107); CREATININE FOR GFR 1.23 MG/DL (0.70-1.30); GLOMERULAR FILTRATION RATE > 60.0 (>49); GLUCOSE, FASTING 103 MG/DL (70-100); MAGNESIUM LEVEL 2.1 MG/DL (1.8-2.4); PHOSPHORUS LEVEL 3.4 MG/DL (2.5-4.9); POTASSIUM SERUM 4.1 MEQ/L (3.5-5.1); SODIUM LEVEL 136 MEQ/L (136-145); TOTAL PROTEIN 6.8 GM/DL (6.4-8.2)
[2019-02-16] MEDS: SLF 3 ML SYR IV SCH ×3 (05:02→20:15)
[2019-02-16 08:00] VITALS: BP 157/88
[2019-02-16] MEDS: VITAMIN D 1,000 INTERNATIONAL UNITS TABLET PO SCH (08:36)
[2019-02-16] MEDS: FOLIC ACID 1 MG TAB PO SCH (08:37)
[2019-02-16] MEDS: OMEGA-3 1000MG CAPSULE PO SCH (08:37)
[2019-02-16] MEDS: DIGOXIN 0.125 MG TAB PO SCH (08:37)
[2019-02-16] MEDS: buPROPion **SR TABLET** (ZYBAN) 150MG PO SCH (08:37)
[2019-02-16] MEDS: METOPROLOL SUCC (TopROL XL) 50MG **XL** TAB PO SCH (08:37)
[2019-02-16] MEDS: MULTIVITAMINS/MINERALS THERAP 1 TAB PO SCH (08:38)
[2019-02-16] MEDS: LEVOTHYROXINE 100MCG TABLET (0.1MG) PO SCH (08:38)
[2019-02-16] MEDS: APIXABAN 5 MG TAB (ELIQUIS) PO SCH ×2 (08:38→20:15)
[2019-02-16] MEDS: PERCOCET 5MG/325MG TAB PO PRN (08:48)
--- NOTE | 2019-02-16 10:04 | IPNPDOC ---
Date Seen The patient was seen on 02/16/19. Progress Note SUBJECTIVE: 58-year-old male with past medical history of CHF (EF 20%), atrial fibrillation, hypertension, severe aortic insufficiency was admitted for acute on chronic congestive heart failure and left lower showing cellulitis. Patient was treated with IV Lasix and reports significant improvement in dyspnea since presentation. Currently is resting comfortably in bed, has good urine output, w ithout any additional was at this time. He did get out of bed to Ambien with physical therapy, reports excessive dyspnea on exertion, although ambulation is significantly improved from yesterday. He denies any chest pain, nausea, vomiting, abdominal pain or diarrhea at this time. 02/12/2019 Patient comfortable, responding really well to IV Lasix, has put out 3 L so far today, reports significant improvement in dyspnea. 02/13/2019 Patient comfortable, good urine output, without any complaints, working with physical therapy. 02/14/2019 Patient comfortable in bed, reports increased ambulation, continues to have left lower extremity pain and swelling, especially when weightbearing, no other c omplaints. 02/15/2019 Patient did have good urine output, reports significant left lower extreme pain, especially when weightbearing, lower extremity ultrasound showing Palomo's cyst, no other complains. 02/16/2019 Patient continues to good urine output, lower extremity pain, improving, no other complaints. 10 point review of systems negative except for above PHYSICAL EXAMINATION: VITAL SIGNS: Please see below. GENERAL: No distress, obese HEENT: Normocephalic, atraumatic, moist mucous membranes NECK: Supple CARDIOVASCULAR EXAMINATION: S1, S2, distant RESPIRATORY EXAMINATION: Diminished, scattered rhonchi, no wheezing ABDOMINAL EXAMINATION: Soft, nontender, nondistended, positive bowel sounds EXTREMITIES: Bilateral lower extremity pitting edema, left villaseñor with erythematous patch, warm and tender to palpation SKIN: No rash NEUROLOGICAL EXAMINATION: Alert and oriented 3, no focal deficits PSYCHIATRIC EXAMINATION: Calm and cooperative LABORATORY DATA, IMAGING STUDIES, MICROBIOLOGY: Please see below. Echocardiogram: No. DVT prophylaxis ordered?: no ASSESSMENT AND PLAN: 58-year-old male with past medical history of CHF, atrial fibrillation, hypertension, severe aortic insufficiency was admitted for acute on chronic CHF exacerbation and cellulitis. PROBLEMS: 1. Acute on chronic systolic CHF: EF 20%, having good urine output, has lost about 12 kg of weight, still volume overloaded, continue Lasix 40 mg IV twice a day, monitor I's and O's, fluid restriction, weight daily. Cardiology consult appreciated 2. Left lower extremity Cellulitis: MRSA PCR negative, Continue Zosyn, improving, remains significantly tender to palpation, likely worsened by Palomo's cyst, discussed with orthopedic surgery, recommend observation and medical management for now. 3. Atrial fibrillation: Continue Eliquis for anticoagulation, continue metoprolol and digoxin for rate control. 4. Hypertension: Continue metoprolol and lisinopril 5. Hypothyroidism: Continue levothyroxine 6. Acute on chronic kidney disease: Due to Cardiorenal syndrome, resolved with diuresis. DVT Proflex: Eliquis GI prophylaxis: Not needed VS, I&O, 24H, Fishbone Vital Signs/I&O Vital Signs Date Time Temp Pulse Resp B/P (MAP) Pulse Ox O2 Delivery O2 Flow Rate FiO2 02/16/19 09:18 20 Room Air 02/16/19 08:37 91 157/88 02/16/19 08:00 97.0 96 02/16/19 04:00 2.0 02/11/19 04:00 96 I&O- Last 24 Hours up to 6 AM 02/16/19 06:00 Intake Total 1118 ml Output Total 2800 ml Balance -1682 ml Laboratory Data 24H LABS Laboratory Tests 2 02/16/19 03:51: Nucleated Red Blood Cells % (auto) 0.0, Anion Gap 5L, Glomerular Filtration Rate > 60.0, Estimated Mean Plasma Glucose 128H, Hemoglobin A1c 6.1, Calcium Level 8.6L, Phosphorus Level 3.4, Magnesium Level 2.1, Total Bilirubin 2.4H, Aspartate Amino Transf (AST/SGOT) 211H, Alanine Aminotransferase (ALT/SGPT) 469H, Alkaline Phosphatase 223H, Total Protein 6.8, Albumin 2.2L, Albumin/Globulin Ratio 0.48L CBC/BMP Laboratory Tests 02/16/19 03:51 Microbiology Microbiology 02/10/19 Blood Culture - Final, Complete NO GROWTH AFTER 5 DAYS 02/10/19 Blood Culture - Final, Complete NO GROWTH AFTER 5 DAYS ALEJANDRA TOLENTINO MD Feb 16, 2019 10:04
[2019-02-16 12:00] VITALS: BP 133/87
--- NOTE | 2019-02-16 13:30 | IPN ---
DATE: 02/16/2019 Mr. Wadsworth was seen earlier this morning. He was sitting up in bed in having lunch. He denies any chest pain, palpitations, orthopnea, syncope or near syncope. He did have some fluttering in the chest at times the chest at times. He feels his left leg where he has the cellulitis is improving and he is having less discomfort in the leg. There is no report of bleeding. He had an ultrasound of the liver yesterday because of elevated LFT's and liver appeared to be normal. Chronic gallbladder wall thickening with polyp was described. No ascites. This morning, and MRI of the left lower extremity was done and result is pending. PHYSICAL EXAMINATION: The patient is alert and oriented, very present. And his vital signs this morning reveal blood pressure of 133/87 with a pulse of 91, respiration 18 and his maximum temperature was 97.7 with an oxygen saturation of 95% on room air. He has a negative fluid balance of 1.8 liters for 02/15/2019. His weight today was noted to be 122.8 kg but most likely was entered wrong because his weight has been between 03/1989 because his weight has been between 111 yesterday and 114 on 02/12 1019. Next examination of the head: Atraumatic. Neck: Neck is supple with extended jugular. Could not appreciate any carotid bruits. Lungs: Did not reveal any wheezing or crackles. Heart examination revealed an irregularly irregular also without gallops. The PMI is displaced inferiorly and laterally. There is no rub. Next abdomen is soft and nontender. Next estimated and trace right lower leg edema and +2 left lower leg edema. Next neurological examination is negative for focal deficit. LABORATORY DATA: CBC done this morning revealed a WBC of 13.3, hemoglobin 12.9, hematocrit 40.1 and platelet 244,000. Next BMP revealed a sodium of 136, potassium of 4.1, chloride 102, CO2 29, BUN 32, creatinine 1.23, GFR more than 60 fasting glucose 103 and calcium 8.6. Serum magnesium is 2.1. Liver enzymes revealed a total remain of 2.4 AST 211, ALT 469, total protein 6.8, albumin 2.2. Serum hemoglobin A1c is 6.1. Serum digoxin yesterday was 0.7. IMPRESSION: 1. Status post acute on chronic congestive failure secondary atrial fibrillation and underlying sepsis due to cellulitis of the left lower extremity. The patient heart failure has improved significantly. He will continue current meds. And will monitor closely his BUN, creatinine and serum potassium as well as his magnesium. If he remains stable, we can double up on his NORI inhibitor / lisinopril setting tomorrow 02/17/2019. 2. Atrial fibrillation, under control with current meds and he will continue with the beta doris and digoxin. He is on apixaban for prevention of thromboembolic events and has not been any bleeding reported. 3. Ventricular tachycardia, noted on telemetry. In view of his a severely depressed global left ventricular cervical function. Will continue telemetry. He is as well as has been normal and he is on a beta doris. He is heart failure has improved significantly. He has a LifeVest available for him and he should be discharged home with it. He is currently in his room. 4. Cellulitis of the left lower extremity, complicated by sepsis and is being addressed. Currently on IV antibiotics. He also was found to have a Palomo's cyst by ultrasound on that extremity. MRI was done today and result is pending. 5. Hypertension, being addressed. Will continue current meds for now. 6. Hypothyroidism, on replacement therapy. 7. History of chronic kidney disease, status post acute decompensation and this has improved significantly and so far has remained stable. 8. Elevated serum. Ultrasound of the liver done yesterday was benign. This is being monitored. It was a pleasure to participate the care of Mr. Aguilar Wadsworth for his underlying cardiac condition. I will continue to monitor him along with you. At this present time, from a cardiac point of view, he appears to be stable.
[2019-02-16 16:00] VITALS: BP 138/90
[2019-02-16 20:00] VITALS: BP 134/83
[2019-02-16] MEDS: LISINOPRIL *2.5 MG* TAB PO SCH (20:15)
[2019-02-16 23:59] VITALS: BP 159/89
[2019-02-17] MEDS: PIPERACILLIN/TAZOBACTAM SOD 3.375 GM in D5W MINI-BAG PLUS 50 ML IV SCH ×4 (03:41→20:15)
[2019-02-17 04:00] VITALS: BP 160/85
[2019-02-17 05:13] LABS: HEMATOCRIT 37.5 % (42.0-52.0); HEMOGLOBIN 12.4 g/dl (13.5-17.5); MEAN CORPUSCULAR HEMOGLOBIN 28.8 pg (27.0-33.0); MEAN CORPUSCULAR HGB CONC 33.1 g/dl (32.0-36.5); PLATELET COUNT, AUTOMATED 274 10^3/uL (150-450); RED BLOOD COUNT 4.31 10^6/uL (4.30-6.10)
[2019-02-17] MEDS: SLF 3 ML SYR IV SCH ×3 (05:26→20:16)
[2019-02-17 05:40] LABS: ALBUMIN 2.2 GM/DL (3.2-5.2); ALT/SGPT 332 U/L (12-78); BILIRUBIN,TOTAL 2.8 MG/DL (0.2-1.0); BLOOD UREA NITROGEN 37 MG/DL (7-18); CALCIUM LEVEL 8.7 MG/DL (8.8-10.2); CARBON DIOXIDE LEVEL 30 MEQ/L (21-32); CHLORIDE LEVEL 100 MEQ/L (98-107); CREATININE FOR GFR 1.24 MG/DL (0.70-1.30); GLOMERULAR FILTRATION RATE > 60.0 (>49); GLUCOSE, FASTING 96 MG/DL (70-100); POTASSIUM SERUM 3.7 MEQ/L (3.5-5.1); SODIUM LEVEL 137 MEQ/L (136-145); TOTAL PROTEIN 6.8 GM/DL (6.4-8.2)
[2019-02-17 08:00] VITALS: BP 145/81
--- NOTE | 2019-02-17 08:54 | IPNPDOC ---
Date Seen The patient was seen on 02/17/19. Progress Note SUBJECTIVE: 58-year-old male with past medical history of CHF (EF 20%), atrial fibrillation, hypertension, severe aortic insufficiency was admitted for acute on chronic congestive heart failure and left lower showing cellulitis. Patient was treated with IV Lasix and reports significant improvement in dyspnea since presentation. Currently is resting comfortably in bed, has good urine output, wi thout any additional was at this time. He did get out of bed to Ambien with physical therapy, reports excessive dyspnea on exertion, although ambulation is significantly improved from yesterday. He denies any chest pain, nausea, vomiting, abdominal pain or diarrhea at this time. 02/12/2019 Patient comfortable, responding really well to IV Lasix, has put out 3 L so far today, reports significant improvement in dyspnea. 02/13/2019 Patient comfortable, good urine output, without any complaints, working with physical therapy. 02/14/2019 Patient comfortable in bed, reports increased ambulation, continues to have left lower extremity pain and swelling, especially when weightbearing, no other co mplaints. 02/15/2019 Patient did have good urine output, reports significant left lower extreme pain, especially when weightbearing, lower extremity ultrasound showing Palomo's cyst, no other complains. 02/16/2019 Patient continues to good urine output, lower extremity pain, improving, no other complaints. 02/17/19 Patient with episode of Afib w/ RVR today, reports dyspnea & palpitations during the episode. Now resolved and patient comfortable, reports improvement in LE pain, MRI done yesterday, read pending. 10 point review of systems negative except for above PHYSICAL EXAMINATION: VITAL SIGNS: Please see below. GENERAL: No distress, obese HEENT: Normocephalic, atraumatic, moist mucous membranes NECK: Supple CARDIOVASCULAR EXAMINATION: S1, S2, distant RESPIRATORY EXAMINATION: Diminished, scattered rhonchi, no wheezing ABDOMINAL EXAMINATION: Soft, nontender, nondistended, positive bowel sounds EXTREMITIES: Bilateral lower extremity pitting edema and improved, left lower extremity erythema and tenderness improving SKIN: No rash NEUROLOGICAL EXAMINATION: Alert and oriented 3, no focal deficits PSYCHIATRIC EXAMINATION: Calm and cooperative LABORATORY DATA, IMAGING STUDIES, MICROBIOLOGY: Please see below. Echocardiogram: No. DVT prophylaxis ordered?: no ASSESSMENT AND PLAN: 58-year-old male with past medical history of CHF, atrial fibrillation, hypertension, severe aortic insufficiency was admitted for acute on chronic CHF exacerbation and cellulitis. PROBLEMS: 1. Acute on chronic systolic CHF: EF 20%, having good urine output, has lost about 13 kg of weight, still volume overloaded, continue Lasix 40 mg IV twice a day, potassium supplementation, monitor I's and O's, fluid restriction, weight daily. Cardiology consult appreciated 2. Left lower extremity Cellulitis: MRSA PCR negative, Continue Zosyn, improving, also has Palomo's cyst, MRI left lower extremity read pending. 3. Atrial fibrillation: Continue Eliquis for anticoagulation, continue metoprolol and digoxin for rate control. 4. Hypertension: Continue metoprolol, lisinopril dose increased to 5 mg a day. 5. Hypothyroidism: Continue levothyroxine 6. Acute on chronic kidney disease: Due to Cardiorenal syndrome, resolved with diuresis. DVT Proflex: Eliquis GI prophylaxis: Not needed VS, I&O, 24H, Fishbone Vital Signs/I&O Vital Signs Date Time Temp Pulse Resp B/P (MAP) Pulse Ox O2 Delivery O2 Flow Rate FiO2 02/17/19 08:00 97.4 108 18 145/81 (102) 94 Room Air 02/16/19 04:00 2.0 02/11/19 04:00 96 I&O- Last 24 Hours up to 6 AM 02/17/19 06:00 Intake Total 1090 ml Output Total 2000 ml Balance -910 ml Laboratory Data 24H LABS Laboratory Tests 2 02/17/19 04:41: Nucleated Red Blood Cells % (auto) 0.0, Anion Gap 7L, Glomerular Filtration Rate > 60.0, Calcium Level 8.7L, Magnesium Level 2.2, Total Bilirubin 2.8H, Aspartate Amino Transf (AST/SGOT) 98H, Alanine Aminotransferase (ALT/SGPT) 332H, Alkaline Phosphatase 212H, Total Protein 6.8, Albumin 2.2L, Albumin/Globulin Ratio 0.48L CBC/BMP Laboratory Tests 02/17/19 04:41 Microbiology Microbiology 02/10/19 Blood Culture - Final, Complete NO GROWTH AFTER 5 DAYS 02/10/19 Blood Culture - Final, Complete NO GROWTH AFTER 5 DAYS ALEJANDRA TOLENTINO MD Feb 17, 2019 08:54
[2019-02-17] MEDS: VITAMIN D 1,000 INTERNATIONAL UNITS TABLET PO SCH (09:05)
[2019-02-17] MEDS: POTASSIUM CHLORIDE 10 MEQ SR TABLET PO SCH ×3 (09:05→20:15)
[2019-02-17] MEDS: METOPROLOL SUCC (TopROL XL) 50MG **XL** TAB PO SCH (09:06)
[2019-02-17] MEDS: buPROPion **SR TABLET** (ZYBAN) 150MG PO SCH (09:07)
[2019-02-17] MEDS: LEVOTHYROXINE 100MCG TABLET (0.1MG) PO SCH (09:07)
[2019-02-17] MEDS: FOLIC ACID 1 MG TAB PO SCH (09:07)
[2019-02-17] MEDS: APIXABAN 5 MG TAB (ELIQUIS) PO SCH ×2 (09:07→20:15)
[2019-02-17] MEDS: OMEGA-3 1000MG CAPSULE PO SCH (09:07)
[2019-02-17] MEDS: DIGOXIN 0.125 MG TAB PO SCH (09:08)
[2019-02-17] MEDS: MULTIVITAMINS/MINERALS THERAP 1 TAB PO SCH (09:08)
[2019-02-17 12:00] VITALS: BP 128/88
--- NOTE | 2019-02-17 12:40 | IPN ---
DATE OF SERVICE: 02/17/2019 AGE: 58. Mr. Aguilar Wadsworth was seen earlier this morning. He was in supine in bed in no acute distress at rest. He said that he feels tired this morning. Otherwise, there is no specific complaint of chest pain, shortness of breath, palpitations. There is no report of bleeding. He does have brief fluttering in his chest at times. He feels some better in his left lower extremity. According to his nurse, he has been doing well except for tiredness this morning. On physical examination, the patient is alert and oriented, in no acute distress at rest. His vital signs reveal a blood pressure of 145/81 with a pulse earlier today of 108 beats per minute, but when I saw him, his pulse was about 80 beats per minute on telemetry, the respiration 18, and his maximum temperature is 97.4 degrees Fahrenheit, with an oxygen saturation of 92% to 96% on room air. He has a negative fluid balance of 800 mL for 02/16/2019. Examination of the head: Atraumatic. Neck is supple, and no jugular venous distention (JVD) appreciated. The lungs did not reveal any wheezing or crackles. Heart examination: Revealed an irregular heart sound without gallop. Extremities: Revealed +2 pitting edema involving the entire leg and the foot and also redness noted on that extremity but seems to be stable. Right lower extremity only revealed trace lower leg and ankle edema. Neurological examination: Grossly was limited but no focal deficit. LABORATORIES: Complete blood count (CBC) done this morning, 02/17/2019, revealed a WBC of 12.0, hemoglobin 12.4, hematocrit 37.5, and platelets 274,000. Basic metabolic profile (BMP) revealed a sodium of 137, potassium 3.7, chloride 100, CO2 30, BUN 37, creatinine 1.24, GFR more than 60, fasting glucose 96, and calcium 8.7. Liver enzymes revealed a total bilirubin of 2.8, AST 98, ALT 332, alkaline phosphatase 212, and total protein 6.8, and albumin 2.2. Telemetry revealed atrial fibrillation with a controlled ventricular rate. No ventricular tachycardia noted. IMPRESSION: Mr. Wadsworth seemed to be stable from a cardiac point of view, and the plan will remain the same. Will continue current cardiac medications but will need to monitor closely his blood urea nitrogen (BUN) and creatinine and serum potassium. His lisinopril was increased today, and he is on a higher dose of potassium. He will need to be monitored. His blood pressure seemed to be mildly elevated today, but his lisinopril was increased. No further recommendation at this present time. He will need to be discharged from the hospital on his LifeVest when he is okay to go home. Please refer to the office visit note on 02/16/[address] Prather will be seeing him tomorrow, 02/18/2019.
[2019-02-17] MEDS: FUROSEMIDE 40 MG/4 ML VIAL (J1940) IV SCH (12:41)
[2019-02-17] MEDS: PERCOCET 5MG/325MG TAB PO PRN (14:41)
[2019-02-17 16:00] VITALS: BP 137/83
[2019-02-17 20:00] VITALS: BP 168/82
[2019-02-17] MEDS: LISINOPRIL 5 MG TAB PO SCH (20:15)
[2019-02-18] VITALS: BP 144/80
[2019-02-18] MEDS: FUROSEMIDE 40 MG/4 ML VIAL (J1940) IV SCH (00:12)
[2019-02-18] MEDS: PIPERACILLIN/TAZOBACTAM SOD 3.375 GM in D5W MINI-BAG PLUS 50 ML IV SCH ×4 (02:24→21:36)
[2019-02-18 04:00] VITALS: BP 147/87
[2019-02-18 05:11] LABS: HEMATOCRIT 38.1 % (42.0-52.0); HEMOGLOBIN 12.2 g/dl (13.5-17.5); MEAN CORPUSCULAR HEMOGLOBIN 28.8 pg (27.0-33.0); MEAN CORPUSCULAR VOLUME 89.9 fl (80.0-96.0); PLATELET COUNT, AUTOMATED 296 10^3/uL (150-450); RED BLOOD COUNT 4.24 10^6/uL (4.30-6.10); WHITE BLOOD COUNT 11.4 10^3/uL (4.0-10.0)
[2019-02-18 05:35] LABS: ALBUMIN 2.2 GM/DL (3.2-5.2); BILIRUBIN,TOTAL 2.1 MG/DL (0.2-1.0); CALCIUM LEVEL 8.6 MG/DL (8.8-10.2); CREATININE FOR GFR 1.36 MG/DL (0.70-1.30); GLOMERULAR FILTRATION RATE 56.9 (>49); MAGNESIUM LEVEL 2.3 MG/DL (1.8-2.4); PHOSPHORUS LEVEL 2.9 MG/DL (2.5-4.9); POTASSIUM SERUM 4.3 MEQ/L (3.5-5.1); TOTAL PROTEIN 7.2 GM/DL (6.4-8.2)
[2019-02-18] MEDS: SLF 3 ML SYR IV SCH ×3 (05:41→21:37)
[2019-02-18 07:07] VITALS: BP 158/100
[2019-02-18] MEDS ORDERED: FUROSEMIDE 40 MG TAB PO SCH (09:00)
--- NOTE | 2019-02-18 09:05 | IPN ---
DATE: 02/18/2019 I am seeing Mr. Wadsworth after long weekend. It is my impression that he actually looks worse today than he did five days ago. He is visibly short of breath just talking longer sentences and his left lower extremity appears to me more erythematous and the extent of erythema is now all the way to his thigh even though it does not look florid. He denies any chest pain, but he does admit that has occasional palpitations. Telemetry monitoring overnight revealed an episode of wide-complex tachycardia that lasted seven beats. I am not convinced that it was ventricular tachycardia (VT) because the heart rate was not appreciably different compared to baseline. It could have been just aberrancy, but I am unable to distinguish that with certainty. He denies any chest pain. Vital Signs: Blood pressure 158/100. Heart rate around 100 and has been consistently in that range with faster heart rate with ambulation. He has been afebrile. Saturation 95% on room air. Weight is documented 118.7 kg, which is actually down from yesterday and the day before yesterday, but there has been abrupt gain of approximately 11 kg from to , which clearly indicated that there has been some major issue with the scales. He is alert, oriented and appropriate. His jugular venous pulse (JVP) is high. Lungs are relatively clear, though I do not appreciate any wheezing or crackles. Heart Exam: Reveals irregularly irregular rhythm with faint murmur over the aortic valve which is diastolic in nature. I do not appreciate gallop. Abdomen is soft without tenderness. Right lower extremity looks normal with if anything trace edema. The left lower extremity has deep redness all the way to the knee that seems to be maturing and is blanching, but on the thigh though there is a small amount of redness as well which was not present last week. Neurologically, he is intact. Laboratories: CBC reveals WBC count 11.4, hemoglobin 12.2, hematocrit 38, platelet count 296,000. Basic metabolic panel reveals sodium 138, potassium 4.3, BUN 39, creatinine 1.36, glucose 125, bilirubin 2.1, AST 63, ALT 251, alkaline phosphatase 236, and albumin is 2.2. ASSESSMENT/PLAN: Mr. Wadsworth is a 58-year-old man who presented with heart failure and left lower extremity cellulitis. As far as cellulitis is concerned, I afraid that we are not making that much progress. Even though it does not look as florid, the redness has extended in its distribution and is now involving the thigh to some degree. He had an MRI again yesterday, but I have not seen any interpretation and I am unable to visualize the images on the screen. The management of this will remain with the hospitalist service. As far as the management of heart failure is concerned, he remains in atrial fibrillation that is not perfectly well controlled and I am going to increase the dose of Toprol slightly to 100 mg daily. I also will give him higher dose of diuretics because he still has paroxysmal nocturnal dyspnea (PND) and is in heart failure. I do believe that some of the liver function test abnormalities are related to that, even though he also carried a history of significant alcohol use which may have contributed as well. At least, the trend is principally in the right direction. Overall, his condition seems to have actually deteriorated some since five days ago. We will take it day by day, but I am hoping that with making the above adjustments in heart failure management we will see some improvement by tomorrow. I do foresee that he will need coronary angiography, but probably we are aiming to get this done on an outpatient basis providing a favorable clinical course.
[2019-02-18] MEDS: VITAMIN D 1,000 INTERNATIONAL UNITS TABLET PO SCH (09:25)
[2019-02-18] MEDS: FOLIC ACID 1 MG TAB PO SCH (09:25)
[2019-02-18] MEDS: LEVOTHYROXINE 100MCG TABLET (0.1MG) PO SCH (09:25)
[2019-02-18] MEDS: DIGOXIN 0.125 MG TAB PO SCH (09:26)
[2019-02-18] MEDS: OMEGA-3 1000MG CAPSULE PO SCH (09:26)
[2019-02-18] MEDS: APIXABAN 5 MG TAB (ELIQUIS) PO SCH ×2 (09:26→21:36)
[2019-02-18] MEDS: buPROPion **SR TABLET** (ZYBAN) 150MG PO SCH (09:26)
[2019-02-18] MEDS: MULTIVITAMINS/MINERALS THERAP 1 TAB PO SCH (09:26)
[2019-02-18] MEDS: POTASSIUM CHLORIDE 10 MEQ SR TABLET PO SCH (09:26)
[2019-02-18] MEDS: METOPROLOL SUCC (TopROL XL) 100MG *XL* TAB PO SCH (09:26)
[2019-02-18] MEDS: PERCOCET 5MG/325MG TAB PO PRN (09:44)
[2019-02-18 09:54] LABS: HEPATITIS A ANTIBODY IGM NEGATIVE (NEGATIVE); HEPATITIS B CORE ANTIBODY IGM NEGATIVE (NEGATIVE); HEPATITIS B SURFACE ANTIGEN NEGATIVE (NEGATIVE); HEPATITIS C VIRUS ABY INDEX 0.1 INDEX (<0.8)
[2019-02-18 12:00] VITALS: BP 148/90
[2019-02-18] MEDS: FUROSEMIDE 100 MG/10 ML VIAL (J1940) IV SCH (12:41)
[2019-02-18 16:00] VITALS: BP 153/88
--- NOTE | 2019-02-18 18:41 | IPNPDOC ---
Date Seen The patient was seen on 02/18/19. Progress Note SUBJECTIVE: 58-year-old male with past medical history of CHF (EF 20%), atrial fibrillation, hypertension, severe aortic insufficiency was admitted for acute on chronic congestive heart failure and left lower showing cellulitis. Patient was treated with IV Lasix and reports significant improvement in dyspnea since presentation. Currently is resting comfortably in bed, has good urine output, wi thout any additional was at this time. He did get out of bed to Ambien with physical therapy, reports excessive dyspnea on exertion, although ambulation is significantly improved from yesterday. He denies any chest pain, nausea, vomiting, abdominal pain or diarrhea at this time. 02/12/2019 Patient comfortable, responding really well to IV Lasix, has put out 3 L so far today, reports significant improvement in dyspnea. 02/13/2019 Patient comfortable, good urine output, without any complaints, working with physical therapy. 02/14/2019 Patient comfortable in bed, reports increased ambulation, continues to have left lower extremity pain and swelling, especially when weightbearing, no other co mplaints. 02/15/2019 Patient did have good urine output, reports significant left lower extreme pain, especially when weightbearing, lower extremity ultrasound showing Palomo's cyst, no other complains. 02/16/2019 Patient continues to good urine output, lower extremity pain, improving, no other complaints. 02/17/19 Patient with episode of Afib w/ RVR today, reports dyspnea & palpitations during the episode. Now resolved and patient comfortable, reports improvement in LE pain, MRI done yesterday, read pending. 02/18/2019 Patient with recurrent episode of A. fib with RVR with development of dyspnea, palpitations, currently dyspneic, no other complaints. 10 point review of systems negative except for above PHYSICAL EXAMINATION: VITAL SIGNS: Please see below. GENERAL: No distress, obese HEENT: Normocephalic, atraumatic, moist mucous membranes NECK: Supple CARDIOVASCULAR EXAMINATION: S1, S2, distant RESPIRATORY EXAMINATION: Diminished, scattered rhonchi, no wheezing ABDOMINAL EXAMINATION: Soft, nontender, nondistended, positive bowel sounds EXTREMITIES: Bilateral lower extremity pitting edema and improved, left lower extremity erythema and tenderness improving SKIN: No rash NEUROLOGICAL EXAMINATION: Alert and oriented 3, no focal deficits PSYCHIATRIC EXAMINATION: Calm and cooperative LABORATORY DATA, IMAGING STUDIES, MICROBIOLOGY: Please see below. Echocardiogram: No. DVT prophylaxis ordered?: no ASSESSMENT AND PLAN: 58-year-old male with past medical history of CHF, atrial fibrillation, hypertension, severe aortic insufficiency was admitted for acute on chronic CHF exacerbation and cellulitis. PROBLEMS: 1. Acute on chronic systolic CHF: EF 20%, having good urine output, has lost about 13 kg of weight, still volume overloaded, Lasix increased to 80 mg IV twice a day by tax intern, potassium supplementation, monitor I's and O's, fluid restriction, weight daily. 2. Left lower extremity Cellulitis: MRSA PCR negative, Continue Zosyn, improving, also has Palomo's cyst, MRI left lower extremity read pending. 3. Atrial fibrillation: Continue Eliquis for anticoagulation, continue metoprolol and digoxin for rate control. Metoprolol dose increased 200 mg daily. 4. Hypertension: Continue metoprolol and lisinopril 5. Hypothyroidism: Continue levothyroxine 6. Acute on chronic kidney disease: Due to Cardiorenal syndrome, resolved with diuresis. DVT Proflex: Eliquis GI prophylaxis: Not needed VS, I&O, [facility] Vital Signs/I&O Vital Signs Date Time Temp Pulse Resp B/P (MAP) Pulse Ox O2 Delivery O2 Flow Rate FiO2 02/18/19 16:00 97.3 65 21 153/88 (109) 96 Room Air 02/17/19 20:00 2.0 I&O- Last 24 Hours up to 6 AM 02/18/19 06:00 Intake Total 1020 ml Output Total 1525 ml Balance -505 ml Laboratory Data 24H LABS Laboratory Tests 2 02/18/19 04:48: Nucleated Red Blood Cells % (auto) 0.0, Anion Gap 6L, Glomerular Filtration Rate 56.9, Calcium Level 8.6L, Phosphorus Level 2.9, Magnesium Level 2.3, Total Bilirubin 2.1H, Aspartate Amino Transf (AST/SGOT) 63H, Alanine Aminotransferase (ALT/SGPT) 251H, Alkaline Phosphatase 236H, Total Protein 7.2, Albumin 2.2L, Albumin/Globulin Ratio 0.44L CBC/BMP Laboratory Tests 02/18/19 04:48 Microbiology Microbiology 02/10/19 Blood Culture - Final, Complete NO GROWTH AFTER 5 DAYS 02/10/19 Blood Culture - Final, Complete NO GROWTH AFTER 5 DAYS ALEJANDRA TOLENTINO MD Feb 18, 2019 18:41
[2019-02-18 20:00] VITALS: BP 140/80
[2019-02-18] MEDS: LISINOPRIL 5 MG TAB PO SCH (21:36)
[2019-02-19] VITALS (7 sets, daily range): BP systolic 129–158; BP diastolic 70–89
[2019-02-19] MEDS: FUROSEMIDE 100 MG/10 ML VIAL (J1940) IV SCH ×2 (00:05→13:10)
[2019-02-19] MEDS: PIPERACILLIN/TAZOBACTAM SOD 3.375 GM in D5W MINI-BAG PLUS 50 ML IV SCH ×2 (03:15→09:27)
[2019-02-19] MEDS: PERCOCET 5MG/325MG TAB PO PRN (03:34)
[2019-02-19 05:58] LABS: CALCIUM LEVEL 8.3 MG/DL (8.8-10.2); CREATININE FOR GFR 1.37 MG/DL (0.70-1.30); GLOMERULAR FILTRATION RATE 56.4 (>49); HEMATOCRIT 39.7 % (42.0-52.0); HEMOGLOBIN 12.5 g/dl (13.5-17.5); MAGNESIUM LEVEL 2.2 MG/DL (1.8-2.4); MEAN CORPUSCULAR HEMOGLOBIN 28.7 pg (27.0-33.0); MEAN CORPUSCULAR HGB CONC 31.5 g/dl (32.0-36.5); MEAN CORPUSCULAR VOLUME 91.3 fl (80.0-96.0); PLATELET COUNT, AUTOMATED 307 10^3/uL (150-450); RED BLOOD COUNT 4.35 10^6/uL (4.30-6.10); WHITE BLOOD COUNT 11.9 10^3/uL (4.0-10.0)
[2019-02-19] MEDS: SLF 3 ML SYR IV SCH ×3 (06:56→21:20)
--- NOTE | 2019-02-19 08:30 | IPN ---
DATE: 02/19/2019 Mr. Wadsworth had a relatively uneventful day yesterday. After his shortness of breath episode in the morning, he then did very well during the day. He was able to ambulate and did not particularly struggle. He actually felt good during ambulation. Unfortunately at night, he again had mild paroxysmal nocturnal dyspnea (PND). Vital signs this morning blood pressure 158/88, heart rate has been around 100 beats per minute. He is afebrile. Saturation 93% on room air. Fluid balance yesterday was recorded as negative a liter but yet his weight is virtually unchanged, 119 kg. He is alert and oriented and appropriate. His jugular venous pulse (JVP) is still high. Lungs are reasonably clear. I do not appreciate any crackles or rhonchi. Heart exam reveals irregularly irregular rhythm. Faint murmur over the aortic valve. Abdomen soft, without tenderness. Extremities reveal normal right lower extremity, but on left lower extremity there is still very prominent erythema all the way to the knee, but it does not appear to be active, if anything it seems to be healing, and there is some mild erythema over his eye as well. He has fine maculopapular rash on his back that he reports is pruritic. LABORATORIES: CBC: Hemoglobin 12.5, hematocrit 39, platelet count 77,000, WBC count 11.9. Basic metabolic panel: Sodium 137, potassium 4.0, BUN 41, creatinine 1.37 for GFR 56, and glucose 88. ASSESSMENT AND PLAN: Mr. Wadsworth is a 58-year-old man, who presented with sepsis due to left lower extremity cellulitis. Blood cultures always were negative but the rash and swelling are not receding as quickly as I would like. Nevertheless, I do think that he is already moving in the right direction. The second and more pressing issue is that of congestive heart failure related to severe cardiomyopathy with atrial fibrillation. The etiology of cardiomyopathy is uncertain but the differential includes severe aortic insufficiency, tachycardia induced cardiomyopathy and alcohol induced cardiomyopathy. Unfortunately, his heart failure is still not well controlled. I increased the dose of furosemide yesterday. I am reluctant to further press the dose of angiotensin-converting enzyme (NORI) inhibitors due to renal insufficiency, but I am going to advance the dose of beta-doris as his heart rate is still too tachycardiac. In setting of aortic insufficiency it is better to be slightly tachycardiac but I would love to get his heart rate around 80-90 beats per minute.
[2019-02-19] MEDS: FOLIC ACID 1 MG TAB PO SCH (09:28)
[2019-02-19] MEDS: VITAMIN D 1,000 INTERNATIONAL UNITS TABLET PO SCH (09:28)
[2019-02-19] MEDS: MULTIVITAMINS/MINERALS THERAP 1 TAB PO SCH (09:28)
[2019-02-19] MEDS: LEVOTHYROXINE 100MCG TABLET (0.1MG) PO SCH (09:28)
[2019-02-19] MEDS: DIGOXIN 0.125 MG TAB PO SCH (09:28)
[2019-02-19] MEDS: OMEGA-3 1000MG CAPSULE PO SCH (09:28)
[2019-02-19] MEDS: POTASSIUM CHLORIDE 10 MEQ SR TABLET PO SCH (09:28)
[2019-02-19] MEDS: APIXABAN 5 MG TAB (ELIQUIS) PO SCH ×2 (09:29→21:19)
[2019-02-19] MEDS: buPROPion **SR TABLET** (ZYBAN) 150MG PO SCH (09:30)
[2019-02-19] MEDS: METOPROLOL SUCC (TopROL XL) 100MG *XL* TAB PO SCH (09:30)
[2019-02-19] MEDS: diphenhydrAMINE 25 MG CAP PO PRN (14:38)
[2019-02-19] MEDS: CLINDAMYCIN 150 MG CAP PO SCH ×3 (14:38→21:19)
--- NOTE | 2019-02-19 18:31 | IPNPDOC ---
Date Seen The patient was seen on 02/19/19. Progress Note SUBJECTIVE: 58-year-old male with past medical history of CHF (EF 20%), atrial fibrillation, hypertension, severe aortic insufficiency was admitted for acute on chronic congestive heart failure and left lower showing cellulitis. Patient was treated with IV Lasix and reports significant improvement in dyspnea since presentation. Currently is resting comfortably in bed, has good urine output, wi thout any additional was at this time. He did get out of bed to Ambien with physical therapy, reports excessive dyspnea on exertion, although ambulation is significantly improved from yesterday. He denies any chest pain, nausea, vomiting, abdominal pain or diarrhea at this time. 02/19/2019 Patient comfortable in bed, reports left lower extremity pain with ambulation, slightly improved, continues to have mild dyspnea at rest, worsened with exertion. 10 point review of systems negative except for above PHYSICAL EXAMINATION: VITAL SIGNS: Please see below. GENERAL: No distress, obese HEENT: Normocephalic, atraumatic, moist mucous membranes NECK: Supple CARDIOVASCULAR EXAMINATION: S1, S2, distant RESPIRATORY EXAMINATION: Diminished, scattered rhonchi, no wheezing ABDOMINAL EXAMINATION: Soft, nontender, nondistended, positive bowel sounds EXTREMITIES: left lower extremity erythema and tenderness improving SKIN: No rash NEUROLOGICAL EXAMINATION: Alert and oriented 3, no focal deficits PSYCHIATRIC EXAMINATION: Calm and cooperative LABORATORY DATA, IMAGING STUDIES, MICROBIOLOGY: Please see below. Echocardiogram: No. DVT prophylaxis ordered?: no ASSESSMENT AND PLAN: 58-year-old male with past medical history of CHF, atrial fibrillation, hypertension, severe aortic insufficiency was admitted for acute on chronic CHF exacerbation and cellulitis. PROBLEMS: 1. Acute on chronic systolic CHF: EF 20%, having good urine output, still volume overloaded, continue Lasix 80 mg IV twice a day, potassium supplementation, monitor I's and O's, fluid restriction, weigh daily. 2. Left lower extremity Cellulitis: MRSA PCR negative, antibiotics, switched to clindamycin, improving, also has Palomo's cyst, MRI left lower extremity read pending. 3. Atrial fibrillation: Continue Eliquis for anticoagulation, continue metoprolol and digoxin for rate control. Metoprolol dose changed to 100 mg in the morning and 59 g at night. 4. Hypertension: Continue metoprolol and lisinopril 5. Hypothyroidism: Continue levothyroxine 6. Acute on chronic kidney disease: Due to Cardiorenal syndrome, resolved with diuresis. DVT Proflex: Eliquis GI prophylaxis: Not needed VS, I&O, 24H, Fishbone Vital Signs/I&O Vital Signs Date Time Temp Pulse Resp B/P (MAP) Pulse Ox O2 Delivery O2 Flow Rate FiO2 02/19/19 16:09 98 20 140/87 (104) 97 Room Air 02/19/19 15:24 98.4 02/17/19 20:00 2.0 I&O- Last 24 Hours up to 6 AM 02/19/19 06:00 Intake Total 760 ml Output Total 2925 ml Balance -2165 ml Laboratory Data 24H LABS Laboratory Tests 2 02/19/19 05:11: Nucleated Red Blood Cells % (auto) 0.0, Anion Gap 6L, Glomerular Filtration Rate 56.4, Calcium Level 8.3L, Magnesium Level 2.2 CBC/BMP Laboratory Tests 02/19/19 05:11 Microbiology Microbiology 02/10/19 Blood Culture - Final, Complete NO GROWTH AFTER 5 DAYS 02/10/19 Blood Culture - Final, Complete NO GROWTH AFTER 5 DAYS ALEJANDRA TOLENTINO MD Feb 19, 2019 18:31
[2019-02-19] MEDS: LISINOPRIL 5 MG TAB PO SCH (21:20)
[2019-02-19] MEDS: METOPROLOL SUCC (TopROL XL) 50MG **XL** TAB PO SCH (21:20)
[2019-02-20] VITALS: BP 132/89
[2019-02-20] MEDS: FUROSEMIDE 100 MG/10 ML VIAL (J1940) IV SCH ×2 (00:56→11:42)
[2019-02-20] MEDS: diphenhydrAMINE 25 MG CAP PO PRN (00:57)
[2019-02-20] MEDS: ACETAMINOPHEN TAB 650MG DOSE (2X325MG) PO PRN (00:58)
[2019-02-20 04:00] VITALS: BP 133/83
[2019-02-20 05:39] LABS: HEMATOCRIT 39.2 % (42.0-52.0); HEMOGLOBIN 12.2 g/dl (13.5-17.5); MEAN CORPUSCULAR HEMOGLOBIN 28.6 pg (27.0-33.0); MEAN CORPUSCULAR HGB CONC 31.1 g/dl (32.0-36.5); PLATELET COUNT, AUTOMATED 321 10^3/uL (150-450); RED BLOOD COUNT 4.26 10^6/uL (4.30-6.10); WHITE BLOOD COUNT 11.9 10^3/uL (4.0-10.0)
[2019-02-20 05:58] LABS: CALCIUM LEVEL 8.2 MG/DL (8.8-10.2); CREATININE FOR GFR 1.5 MG/DL (0.70-1.30); GLOMERULAR FILTRATION RATE 50.8 (>49); MAGNESIUM LEVEL 2.2 MG/DL (1.8-2.4); PHOSPHORUS LEVEL 3.2 MG/DL (2.5-4.9); POTASSIUM SERUM 4.1 MEQ/L (3.5-5.1)
[2019-02-20] MEDS: SLF 3 ML SYR IV SCH ×3 (06:37→22:00)
[2019-02-20 08:00] VITALS: BP 143/84
--- NOTE | 2019-02-20 08:32 | IPN ---
DATE: 02/20/2019 Mr. Wadsworth is still not well. He continues to complain about paroxysmal nocturnal dyspnea (PND). He also has some persistent pain in his left lower extremity. He was supposed to go to rehab, but unfortunately with his LifeVest he was not felt to be a candidate. I suggested that he might be able to go home, but there is clearly fear on his side and I believe that we will probably have to get him a little better compensated before he can go home. PHYSICAL EXAMINATION: Blood pressure today 133/83, heart rate has been still in 90s and low 100s. He is afebrile. Saturation 94%. Fluid balance yesterday was recorded negative 1500. Weight is 106.7, which clearly is not in accordance with the weight obtained yesterday. His JVP still high, easily 5-6 cm above clavicle. Lungs are relatively clear though, no wheezing, crackles or rhonchi. Heart exam reveals irregular rhythm. I did not appreciate much of a murmur even though there is fine aortic murmur apparent over the right upper sternum. Abdomen is soft, nontender. Right lower extremity is essentially free of edema. There is still prominent redness and swelling of left lower extremity. LABORATORIES: CBC hemoglobin 12.2, hematocrit 39, platelet count 320,000. Basic metabolic panel sodium 137, potassium 4.1, BUN 46, creatinine 1.5. ASSESSMENT/PLAN: Mr. Wadsworth is a 58-year-old man who has severe cardiomyopathy with very low ejection fraction. He also has at least moderately severe aortic insufficiency and dilated ascending aorta. Atrial fibrillation is also noted. During his hospitalization I progressively increased the dose of beta-doris and he is currently on 150 mg of Toprol XL a day. I am reluctant to advance the dose today because we already doubled the dose over the last 48 hours. He also is receiving diuretics and has reasonable diuretic response even though true response is difficult to bulker due to inconsistencies in his weight measurements. I do believe that he still quite volume overloaded and we should continue diuresis. As far as the atrial fibrillation is concerned, it is reasonably well-controlled. My plan still would be to get the patient home and eventually arrange for outpatient cardiac catheterization. I am not quite convinced that he is ready to go home and that the reluctance on his part tells me that he still not feeling well. I would continue current treatment. Hopefully, he will be feeling little bit better within a day or two. Ultimately, if we should not be able to get him in better shape, we will transfer him for angiogram with potential heart surgery to follow.
[2019-02-20] MEDS: APIXABAN 5 MG TAB (ELIQUIS) PO SCH ×2 (08:56→20:43)
[2019-02-20] MEDS: DIGOXIN 0.125 MG TAB PO SCH (08:56)
[2019-02-20] MEDS: CLINDAMYCIN 150 MG CAP PO SCH ×4 (08:57→20:43)
[2019-02-20] MEDS: FOLIC ACID 1 MG TAB PO SCH (08:57)
[2019-02-20] MEDS: MULTIVITAMINS/MINERALS THERAP 1 TAB PO SCH (08:57)
[2019-02-20] MEDS: METOPROLOL SUCC (TopROL XL) 100MG *XL* TAB PO SCH (08:57)
[2019-02-20] MEDS: buPROPion **SR TABLET** (ZYBAN) 150MG PO SCH (08:57)
[2019-02-20] MEDS: LEVOTHYROXINE 100MCG TABLET (0.1MG) PO SCH (08:57)
[2019-02-20] MEDS: POTASSIUM CHLORIDE 10 MEQ SR TABLET PO SCH (08:58)
[2019-02-20] MEDS: VITAMIN D 1,000 INTERNATIONAL UNITS TABLET PO SCH (08:58)
[2019-02-20] MEDS ORDERED: KLOR10TA76 PO (11:02)
[2019-02-20] MEDS ORDERED: LISI-542 PO (11:02)
[2019-02-20] MEDS ORDERED: METO1TAB7 PO (11:02)
[2019-02-20] MEDS ORDERED: METO1TAB33 PO (11:02)
[2019-02-20] MEDS: OMEGA-3 1000MG CAPSULE PO SCH (11:29)
[2019-02-20 12:00] VITALS: BP 151/87
[2019-02-20 16:00] VITALS: BP 142/82
--- NOTE | 2019-02-20 19:48 | IPNPDOC ---
Date Seen The patient was seen on 02/20/19. Progress Note SUBJECTIVE: 58-year-old male with past medical history of CHF (EF 20%), atrial fibrillation, hypertension, severe aortic insufficiency was admitted for acute on chronic congestive heart failure and left lower showing cellulitis. Patient was treated with IV Lasix and reports significant improvement in dyspnea since presentation. Currently is resting comfortably in bed, has good urine output, wi thout any additional was at this time. He did get out of bed to Ambien with physical therapy, reports excessive dyspnea on exertion, although ambulation is significantly improved from yesterday. He denies any chest pain, nausea, vomiting, abdominal pain or diarrhea at this time. 02/19/2019 Patient comfortable in bed, reports left lower extremity pain with ambulation, slightly improved, continues to have mild dyspnea at rest, worsened with exertion. 02/20/2019 Patient comfortable, reports dyspnea on exertion, doing much better with physical therapy, no other complains. 10 point review of systems negative except for above PHYSICAL EXAMINATION: VITAL SIGNS: Please see below. GENERAL: No distress, obese HEENT: Normocephalic, atraumatic, moist mucous membranes NECK: Supple CARDIOVASCULAR EXAMINATION: S1, S2, distant RESPIRATORY EXAMINATION: Diminished, scattered rhonchi, no wheezing ABDOMINAL EXAMINATION: Soft, nontender, nondistended, positive bowel sounds EXTREMITIES: left lower extremity erythema and tenderness improving SKIN: No rash NEUROLOGICAL EXAMINATION: Alert and oriented 3, no focal deficits PSYCHIATRIC EXAMINATION: Calm and cooperative LABORATORY DATA, IMAGING STUDIES, MICROBIOLOGY: Please see below. Echocardiogram: No. DVT prophylaxis ordered?: no ASSESSMENT AND PLAN: 58-year-old male with past medical history of CHF, atrial fibrillation, hypertension, severe aortic insufficiency was admitted for acute on chronic CHF exacerbation and cellulitis. PROBLEMS: 1. Acute on chronic systolic CHF: EF 20%, having good urine output, still volume overloaded, creatinine trending up, decreased diuretics to Lasix 40 mg by mouth twice a day, potassium supplementation, monitor I's and O's, fluid restriction, weigh daily. Will adjust diuresis as tolerated by renal function. 2. Left lower extremity Cellulitis: MRSA PCR negative, antibiotics switched to clindamycin, improving, also has Palomo's cyst, MRI left lower extremity read pending. 3. Atrial fibrillation: Continue Eliquis for anticoagulation, continue metoprolol and digoxin for rate control. 4. Hypertension: Continue metoprolol and lisinopril 5. Hypothyroidism: Continue levothyroxine 6. Acute on chronic kidney disease: Due to Cardiorenal syndrome, resolved, now creatinine worsening due to aggressive diuresis, decreased diuretic dose. DVT Proflex: Eliquis GI prophylaxis: Not needed VS, I&O, 24H, Fishbone Vital Signs/I&O Vital Signs Date Time Temp Pulse Resp B/P (MAP) Pulse Ox O2 Delivery O2 Flow Rate FiO2 02/20/19 16:00 96.7 85 18 142/82 (102) 98 Room Air 02/17/19 20:00 2.0 I&O- Last 24 Hours up to 6 AM 02/20/19 06:00 Intake Total 1410 ml Output Total 1750 ml Balance -340 ml Laboratory Data 24H LABS Laboratory Tests 2 02/20/19 05:23: Nucleated Red Blood Cells % (auto) 0.0, Anion Gap 6L, Glomerular Filtration Rate 50.8, Calcium Level 8.2L, Phosphorus Level 3.2, Magnesium Level 2.2 CBC/BMP Laboratory Tests 02/20/19 05:23 Microbiology Microbiology 02/10/19 Blood Culture - Final, Complete NO GROWTH AFTER 5 DAYS 02/10/19 Blood Culture - Final, Complete NO GROWTH AFTER 5 DAYS ALEJANDRA TOLENTINO MD Feb 20, 2019 19:48
[2019-02-20 20:00] VITALS: BP 148/88
[2019-02-20] MEDS: LISINOPRIL 5 MG TAB PO SCH (20:43)
[2019-02-20] MEDS: METOPROLOL SUCC (TopROL XL) 50MG **XL** TAB PO SCH (20:50)
[2019-02-21] VITALS: BP 132/76
[2019-02-21 04:00] VITALS: BP 122/80
[2019-02-21 05:25] LABS: HEMATOCRIT 42.3 % (42.0-52.0); HEMOGLOBIN 12.9 g/dl (13.5-17.5); MEAN CORPUSCULAR HEMOGLOBIN 28.2 pg (27.0-33.0); MEAN CORPUSCULAR HGB CONC 30.5 g/dl (32.0-36.5); MEAN CORPUSCULAR VOLUME 92.6 fl (80.0-96.0); PLATELET COUNT, AUTOMATED 387 10^3/uL (150-450); RED BLOOD COUNT 4.57 10^6/uL (4.30-6.10)
[2019-02-21 05:45] LABS: CALCIUM LEVEL 8.7 MG/DL (8.8-10.2); CREATININE FOR GFR 1.67 MG/DL (0.70-1.30); GLOMERULAR FILTRATION RATE 44.9 (>49); MAGNESIUM LEVEL 2.6 MG/DL (1.8-2.4); PHOSPHORUS LEVEL 3.7 MG/DL (2.5-4.9); POTASSIUM SERUM 4.4 MEQ/L (3.5-5.1)
[2019-02-21] MEDS: SLF 3 ML SYR IV SCH (06:49)
[2019-02-21 08:00] VITALS: BP 149/84
[2019-02-21] MEDS ORDERED: TORSEMIDE 100 MG TAB PO SCH (09:00)
[2019-02-21] MEDS ORDERED: FUROSEMIDE 40 MG TAB PO SCH (09:00)
--- NOTE | 2019-02-21 09:01 | IPN ---
DATE: 02/21/2019 Mr. Wadsworth is ready to go home. He still reveals that he had mild paroxysmal nocturnal dyspnea (PND) last night and his leg is still swollen, but he is getting restless. He believes that his symptoms are manageable and certainly improved. Vital signs this morning, blood pressure 149/84. Heart rate was 108, but usually is from 70s to low 100s. He is afebrile. Saturating 92-96% on room air. Fluid balance yesterday was recorded as positive 240, but neither the intake nor the output were well recorded. Weight is recorded at 103.6, which is not believable compared to prior readings. His jugular venous pulse (JVP) is still high. Lungs are clear though. Heart exam reveals irregular rhythm. I do not appreciate any gallop. There is a faint murmur over the aortic valve. Abdomen is soft. Right lower extremity has trace edema and left lower extremity has redness all the way to the knee that seems to be subsiding slowly. Neurologically, he is intact. LABORATORIES: CBC: WBC count 13, hemoglobin 12.9, hematocrit 42, platelet count 387,000. Basic metabolic panel: Sodium 234, potassium 4.4, BUN 56, creatinine 1.7 and glucose 76 ASSESSMENT/PLAN: Mr. Wadsworth is a 58-year-old man who has cardiomyopathy and severe heart failure. The differential includes possibility of tachycardia induced cardiomyopathy, I believe less likely alcohol induced cardiomyopathy. He has at least moderately severe aortic insufficiency. At this point, he is still not well-controlled, but he is desperate to go home and he has been in the hospital a long time. Even though the weight documentation is certainly inaccurate, he lost a lot of weight, probably at least 15 pounds if not more. I would discharge him home on Toprol XL a total of 150 mg a day, plus digoxin 0.125 a day. I recommend to discontinue lisinopril due to his worsening renal function and I would give him torsemide 100 mg daily as a diuretic. I plan to see him in follow up Monday or Monday and will set it up. I told him to follow a low-sodium diet, fluid restriction to 16 ounces a day, and instructed him to call me if his condition should deteriorate over the weekend.
[2019-02-21] MEDS: APIXABAN 5 MG TAB (ELIQUIS) PO SCH (09:45)
[2019-02-21] MEDS: FOLIC ACID 1 MG TAB PO SCH (09:45)
[2019-02-21] MEDS: MULTIVITAMINS/MINERALS THERAP 1 TAB PO SCH (09:45)
[2019-02-21] MEDS: DIGOXIN 0.125 MG TAB PO SCH (09:45)
[2019-02-21] MEDS: buPROPion **SR TABLET** (ZYBAN) 150MG PO SCH (09:45)
[2019-02-21] MEDS: CLINDAMYCIN 150 MG CAP PO SCH (09:45)
[2019-02-21] MEDS: LEVOTHYROXINE 100MCG TABLET (0.1MG) PO SCH (09:46)
[2019-02-21 09:50] VITALS: BP 149/84
[2019-02-21] MEDS: VITAMIN D 1,000 INTERNATIONAL UNITS TABLET PO SCH (09:50)
[2019-02-21] MEDS: OMEGA-3 1000MG CAPSULE PO SCH (09:50)
[2019-02-21] MEDS: METOPROLOL SUCC (TopROL XL) 100MG *XL* TAB PO SCH (09:50)
[2019-02-21] MEDS: POTASSIUM CHLORIDE 10 MEQ SR TABLET PO SCH (09:50)
--- NOTE | 2019-02-21 16:05 | REP ---
Clinical: Cellulitis. Technique: Noncontrast MRI of the left tibia / fibula. Comparison: 02/11/2019 Findings: Extensive subcutaneous edema is appreciated along with edema and inflammatory changes involving the gastrocnemius muscle appears mildly increased from prior examination and is consistent with continued cellulitis and underlying myositis. There is no evidence for discrete drainable collection/abscess. The underlying osseous structures appear intact and without evidence for osteomyelitis. Impression: Mildly worsening cellulitis and myositis. No evidence for interval collection/abscess. No evidence for osteomyelitis. Electronically Signed by Simone Anders MD 02/21/2019 03:57 P
--- NOTE | 2019-02-21 17:57 | DS.PDOC ---
Discharge Summary General Date of Admission Feb 10, 2019 at 19:53 Date of Discharge 02/21/2019 Attending Physician: ALEJANDRA TOLENTINO MD Discharge Summary PROCEDURES PERFORMED DURING STAY: None. ADMITTING DIAGNOSES: 1. Acute on chronic systolic heart failure, cellulitis, acute kidney injury. DISCHARGE DIAGNOSES: 1. Acute on chronic systolic heart failure, cellulitis, acute kidney injury. COMPLICATIONS/CHIEF COMPLAINT: Cellulitis;Sepsis. HISTORY OF PRESENT ILLNESS: 58-year-old male with past medical history of CHF, hypertension and atrial fibrillation was admitted for acute on chronic systolic heart failure, cellulitis and acute kidney injury. He was treated with aggressiv e IV diuresis with resolution of acute kidney injury, which was from cardiorenal syndrome. He diuresed really well, lost roughly 15 kg, cellulitis was treated with Zosyn followed by clindamycin. 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 Patient evaluated by cardiology, patient will continue oral diuresis and f ollow-up with cardiology outpatient. Patient is clinically hemodynamically stable for discharge and outpatient follow-up. HOSPITAL COURSE: As above. DISCHARGE MEDICATIONS: Please see below. ALLERGIES: Please see below. PHYSICAL EXAMINATION: VITAL SIGNS: Please see below. GENERAL: No distress, obese HEENT: Normocephalic, atraumatic, moist mucous membranes NECK: Supple CARDIOVASCULAR EXAMINATION: S1, S2, distant RESPIRATORY EXAMINATION: Diminished, scattered rhonchi, no wheezing ABDOMINAL EXAMINATION: Soft, nontender, nondistended, positive bowel sounds EXTREMITIES: left lower extremity erythema and tenderness improving SKIN: No rash NEUROLOGICAL EXAMINATION: Alert and oriented 3, no focal deficits PSYCHIATRIC EXAMINATION: Calm and cooperative LABORATORY DATA: Please see below. PROGNOSIS: Guarded ACTIVITY: As tolerated. DIET: Cardiac with 1500 mL fluid restriction DISCHARGE PLAN: Patient will follow-up with doors prefitter and PCP in 1-2 weeks DISPOSITION: 06 Home Health Service. DISCHARGE INSTRUCTIONS: 1. As above. DISCHARGE CONDITION: Stable. TIME SPENT ON DISCHARGE: Greater than 34 minutes. Vital Signs/I&Os Vital Signs Date Time Temp Pulse Resp B/P (MAP) Pulse Ox O2 Delivery O2 Flow Rate FiO2 02/21/19 09:50 108 149/84 02/21/19 08:00 97.0 18 92 Room Air 02/17/19 20:00 2.0 I&O- Last 24 Hours up to 6 AM 02/21/19 06:00 Intake Total 440 ml Output Total 0 ml Balance 440 ml Laboratory Data Labs 24H Laboratory Tests 2 02/21/19 05:04: Nucleated Red Blood Cells % (auto) 0.0, Anion Gap 6L, Glomerular Filtration Rate 44.9L, Calcium Level 8.7L, Phosphorus Level 3.7, Magnesium Level 2.6H CBC/BMP Laboratory Tests 02/21/19 05:04 Discharge Medications Scheduled Apixaban (Eliquis) 5 Mg Tablet, 5 MG PO BID, (Reported) Bupropion HCl (Bupropion HCl Sr) 150 Mg Tab, 150 MG PO DAILY, (Reported) Cholecalciferol (Vitamin D3) (Vitamin D3) 1,000 Unit Cap, 2,000 UNIT PO DAILY, (Reported) Digoxin (Digox) 125 Mcg Tablet, 125 MCG PO DAILY, (Reported) Fluticasone/Vilanterol (Breo Ellipta 100-25 Mcg INH) 1 Inh Inh, 1 PUFF INH DAILY, (Reported) Furosemide (Furosemide) 40 Mg Tablet, 60 MG PO DAILY, (Reported) Levothyroxine Sodium (Levothyroxine Sodium) 200 Mcg Tablet, 200 MCG PO DAILY, (Reported) Lisinopril (Lisinopril) 5 Mg Tablet, 5 MG PO QHS Metoprolol Succinate (Metoprolol Succinate) 100 Mg Tab.er.24h, 100 MG PO DAILY Metoprolol Succinate (Metoprolol Succinate) 50 Mg Tab.er.24h, 50 MG PO QHS Multivit-Min/FA/Lycopen/Lutein (Essential Man 50+ Tablet) 1 Tab Tab, 1 TAB PO DAILY, (Reported) [place]-3 Fatty Acids/Fish Oil ([place] 3 1,000 mg Softgel) 1 Cap Cap, 1 CAP PO DAILY, (Reported) Potassium Chloride (Klor-Con M10) 10 Meq Tab.er.prt, 10 MEQ PO DAILY Scheduled PRN Tizanidine HCl (Zanaflex) 4 Mg Cap, 4 MG PO QIDP PRN for PAIN, (Reported) Allergies Coded Allergies: No Known Allergies (Unverified , 12/31/13) ALEJANDRA TOLENTINO MD Feb 21, 2019 17:57
== END 2019-02-21 12:55 | disposition home health service (06) | DRG 871 ==
LOC: M ED 15:39 → M ED INP 19:53 → M ICU 21:17 → M PCU 02-13 06:36
PROVIDERS: ADMIT Internal Medicine; ATTEND Internal Medicine
DX: A41.9 Sepsis, unspecified organism (principal); I50.23 Acute on chronic systolic (congestive) heart failure; L03.116 Cellulitis of left lower limb; N17.9 Acute kidney failure, unspecified; I42.8 Other cardiomyopathies; I13.0 Hypertensive heart and chronic kidney disease with heart failure and stage 1 through stage 4 chronic kidney disease, or unspecified chronic kidney disease; F10.10 Alcohol abuse, uncomplicated; E78.5 Hyperlipidemia, unspecified; I35.1 Nonrheumatic aortic (valve) insufficiency; I71.2 Thoracic aortic aneurysm, without rupture; N18.9 Chronic kidney disease, unspecified; M71.22 Synovial cyst of popliteal space [Baker], left knee; E16.2 Hypoglycemia, unspecified; J44.9 Chronic obstructive pulmonary disease, unspecified; R65.20 Severe sepsis without septic shock; I48.91 Unspecified atrial fibrillation; Z79.01 Long term (current) use of anticoagulants; Z79.899 Other long term (current) drug therapy; Z96.643 Presence of artificial hip joint, bilateral; Z87.891 Personal history of nicotine dependence; Z63.4 Disappearance and death of family member

== ENCOUNTER → 2019-03-15 | Outpatient (CLI) | payer MEDICARE ==
[~2019-03-15] MED LIST changes: +DIGO0.127 PO; +ELIQ5TAB PO; +FURO40TA2 PO; +KLOR10TA76 PO; +LEVO200T4 PO; +LISI-542 PO; +METO1TAB33 PO; +METO1TAB7 PO; +METO75TA PO
[2019-03-15 18:15] LABS: BASO # 0.1 10^3/uL (0.0-0.2); BASO % 0.7 % (0.0-1.0); EOS # 0.3 10^3/uL (0.0-0.5); EOS % 3.5 % (0.0-3.0); HEMATOCRIT 41.6 % (42.0-52.0); HEMOGLOBIN 13.3 g/dl (13.5-17.5); LYMPH # 2.2 10^3/uL (1.5-5.0); LYMPH % 29.4 % (24.0-44.0); MEAN CORPUSCULAR HEMOGLOBIN 29.8 pg (27.0-33.0); MEAN CORPUSCULAR VOLUME 93.1 fl (80.0-96.0); MONO # 0.8 10^3/uL (0.0-0.8); MONO % 11.1 % (0.0-5.0); NEUTROPHILS # 4.1 10^3/uL (1.5-8.5); NEUTROPHILS % 54.8 % (36.0-66.0); PLATELET COUNT, AUTOMATED 238 10^3/uL (150-450); RED BLOOD COUNT 4.47 10^6/uL (4.30-6.10); WHITE BLOOD COUNT 7.4 10^3/uL (4.0-10.0)
== END ==
LOC: M WUC 17:13
PROVIDERS: ATTEND Physician Assistant
DX: L03.116 Cellulitis of left lower limb (principal)

== ENCOUNTER → 2019-04-29 | Outpatient (REF) | payer MEDICARE ==
[2019-04-29 15:03] LABS: INR 1.86; PROTHROMBIN TIME 21.2 SECONDS (11.8-14.0)
== END ==
LOC: M SHH 14:36
PROVIDERS: ATTEND Nurse Practitioner Family
DX: I35.1 Nonrheumatic aortic (valve) insufficiency (principal)

== ENCOUNTER 2019-05-03 16:08 | Emergency (ER) | payer MEDICARE ==
[~2019-05-03] VITALS: Ht 188 cm; Wt 96.8 kg
--- NOTE | 2019-05-03 16:56 | REP ---
Clinical: Chest pain. Comparison: 02/10/2019. Findings: Mediastinum and cardiac silhouette are stable. Lung ren demonstrate chronic changes primarily involving the left lower lung zone. Subtle superimposed atelectasis cannot be excluded. Impression: Chronic changes. Subtle superimposed left basilar atelectasis cannot be excluded. Electronically Signed by Simone Anders MD 05/03/2019 04:48 P
[2019-05-03 17:02] LABS: BASO # 0.1 10^3/uL (0.0-0.2); BASO % 0.9 % (0.0-1.0); EOS # 0.4 10^3/uL (0.0-0.5); EOS % 4.7 % (0.0-3.0); HEMATOCRIT 33.7 % (42.0-52.0); LYMPH # 1.7 10^3/uL (1.5-5.0); MEAN CORPUSCULAR HEMOGLOBIN 31.3 pg (27.0-33.0); MEAN CORPUSCULAR HGB CONC 32.6 g/dl (32.0-36.5); MEAN CORPUSCULAR VOLUME 95.7 fl (80.0-96.0); MONO # 0.9 10^3/uL (0.0-0.8); MONO % 11.7 % (0.0-5.0); NEUTROPHILS # 4.4 10^3/uL (1.5-8.5); PLATELET COUNT, AUTOMATED 319 10^3/uL (150-450); RED BLOOD COUNT 3.52 10^6/uL (4.30-6.10); WHITE BLOOD COUNT 7.4 10^3/uL (4.0-10.0)
--- NOTE | 2019-05-03 17:24 | REPVR ---
PROCEDURE INFORMATION: Exam: US Duplex Left Lower Extremity Veins, Limited Exam date and time: 05/03/2019 5:05 PM Age: 58 years old Clinical indication: Swelling (edema) of limb; Lower extremity, left TECHNIQUE: Imaging protocol: Real-time Duplex ultrasound of the Left Lower Extremity with 2-D crowe scale, color Doppler flow and spectral waveform analysis with image documentation. Limited exam focused on the left lower extremity veins. COMPARISON: US Duplex, Ext,LOWER veins,unilat 02/14/2019 11:17 AM FINDINGS: Left deep veins: Unremarkable. The common femoral, femoral, proximal profunda femoral and popliteal veins are patent without thrombus. Normal Doppler waveforms. Normal compressibility and/or augmentation response. Left superficial veins: Unremarkable. Saphenofemoral junction is patent without thrombus. Soft tissues: Unremarkable. IMPRESSION: No acute findings. No evidence of deep vein thrombosis. Electronically signed by: Yoandy Schulte On 05/03/2019 17:24:25 PM
[2019-05-03 17:38] LABS: ALBUMIN 3.2 GM/DL (3.2-5.2); ALT/SGPT 62 U/L (12-78); BILIRUBIN,DIRECT 0.3 MG/DL (0.0-0.2); BILIRUBIN,TOTAL 0.5 MG/DL (0.2-1.0); BLOOD UREA NITROGEN 26 MG/DL (7-18); CALCIUM LEVEL 8.5 MG/DL (8.8-10.2); CARBON DIOXIDE LEVEL 31 MEQ/L (21-32); CHLORIDE LEVEL 97 MEQ/L (98-107); CK-MB VALUE MASS 1.7 NG/ML (<3.6); CPK CREATINE PHOSPHOKINASE 41 U/L (39-308); CREATININE FOR GFR 1.28 MG/DL (0.70-1.30); GLOMERULAR FILTRATION RATE > 60.0 (>49); GLUCOSE, FASTING 83 MG/DL (70-100); LIPASE 241 U/L (73-393); MB/CK RELATIVE INDEX 4.15 (< OR =4); NT-PRO BNP 1687 PG/ML (<125); POTASSIUM SERUM 4.9 MEQ/L (3.5-5.1); SODIUM LEVEL 131 MEQ/L (136-145); TOTAL PROTEIN 6.8 GM/DL (6.4-8.2)
[2019-05-03 17:52] VITALS: BP 108/62
[2019-05-03 18:00] LABS: INR 2.08; PROTHROMBIN TIME 23.2 SECONDS (11.8-14.0)
--- NOTE | 2019-05-03 18:22 | ECGEPIP ---
[facility] - ED Test Date: 2019-05-03 Pat Name: JONATHAN YING Department: Room: - Gender: Male [employer]: wil : [id number] Requested By: Mai Schmidt Order Number: [id number] Reading MD: Amauri Wood Measurements Intervals [place] Rate: 64 P: 49 IA: 202 QRS: -37 QRSD: 113 T: 120 QT: 400 QTc: 413 Interpretive Statements SINUS RHYTHM LEFT AXIS DEVIATION LEFT ANTERIOR FASCICULAR BLOCK LEFT VENTRICULAR HYPERTROPHY AND ST-T CHANGE RHYTHM CHANGE COMPARED TO 02/11/19 Electronically Signed on 05-03-2019 18:22:33 EST by Amauri Wood
== END 2019-05-03 18:37 | disposition home or self-care (01) ==
LOC: M ED 16:08
DX: I95.89 Other hypotension (principal); I48.19 Other persistent atrial fibrillation; R22.42 Localized swelling, mass and lump, left lower limb; I50.30 Unspecified diastolic (congestive) heart failure; I11.0 Hypertensive heart disease with heart failure; J44.9 Chronic obstructive pulmonary disease, unspecified; E78.5 Hyperlipidemia, unspecified; E07.9 Disorder of thyroid, unspecified; Z79.899 Other long term (current) drug therapy; Z79.890 Hormone replacement therapy; Z79.01 Long term (current) use of anticoagulants; Z87.891 Personal history of nicotine dependence

== ENCOUNTER → 2019-05-03 | Outpatient (REF) | payer MEDICARE ==
[2019-05-03 14:30] LABS: INR 2.12; PROTHROMBIN TIME 23.5 SECONDS (11.8-14.0)
== END ==
LOC: M SHH 13:52
PROVIDERS: ATTEND Internal Medicine Cardiovascular Disease
DX: I48.19 Other persistent atrial fibrillation (principal)

== ENCOUNTER → 2019-05-06 | Outpatient (REF) | payer MEDICARE ==
[2019-05-06 16:33] LABS: INR 1.86; PROTHROMBIN TIME 21.2 SECONDS (11.8-14.0)
== END ==
LOC: M SHH 15:38
PROVIDERS: ATTEND Internal Medicine Cardiovascular Disease
DX: I48.19 Other persistent atrial fibrillation (principal)

== ENCOUNTER → 2019-05-10 | Outpatient (REF) | payer MEDICARE ==
[2019-05-10 16:02] LABS: INR 1.67; PROTHROMBIN TIME 19.5 SECONDS (11.8-14.0)
== END ==
LOC: M SHH 14:53
PROVIDERS: ATTEND Internal Medicine Cardiovascular Disease
DX: I48.19 Other persistent atrial fibrillation (principal)

== ENCOUNTER → 2019-05-20 | Outpatient (REF) | payer MEDICARE ==
[2019-05-20 14:52] LABS: INR 1.67; PROTHROMBIN TIME 19.4 SECONDS (11.8-14.0)
== END ==
LOC: M SHH 14:13
PROVIDERS: ATTEND Internal Medicine Cardiovascular Disease
DX: I48.19 Other persistent atrial fibrillation (principal)

== ENCOUNTER → 2019-05-27 | Outpatient (REF) | payer MEDICARE ==
[2019-05-27 13:04] LABS: INR 2.1; PROTHROMBIN TIME 23.4 SECONDS (11.8-14.0)
== END ==
LOC: M SHH 12:21
PROVIDERS: ATTEND Internal Medicine Cardiovascular Disease
DX: I48.19 Other persistent atrial fibrillation (principal)

== ENCOUNTER → 2019-06-03 | Outpatient (REF) | payer MEDICARE ==
[2019-06-03 16:14] LABS: INR 1.48; PROTHROMBIN TIME 17.7 SECONDS (11.8-14.0)
== END ==
LOC: M SHH 14:43
PROVIDERS: ATTEND Internal Medicine Cardiovascular Disease
DX: I48.19 Other persistent atrial fibrillation (principal)

== ENCOUNTER → 2019-06-10 | Outpatient (REF) | payer MEDICARE ==
[2019-06-10 14:04] LABS: INR 1.34; PROTHROMBIN TIME 16.3 SECONDS (11.8-14.0)
== END ==
LOC: M SHH 13:22
PROVIDERS: ATTEND Internal Medicine Cardiovascular Disease
DX: I48.19 Other persistent atrial fibrillation (principal)

== ENCOUNTER → 2019-06-19 | Outpatient (REF) | payer MEDICARE | LOC: M LAB REF 16:12 | PROVIDERS: ATTEND Internal Medicine | DX: D64.9 Anemia, unspecified (principal) ==

== ENCOUNTER → 2020-03-11 | Outpatient (REF) | payer MEDICARE ==
[~2020-03-11] MED LIST changes: +AMLO1TAB24 PO; -AMLO5TAB6 PO
== END ==
LOC: M LAB REF 16:26
PROVIDERS: ATTEND Nurse Practitioner Adult Health
DX: I48.21 Permanent atrial fibrillation (principal); Z79.01 Long term (current) use of anticoagulants

== ENCOUNTER → 2020-06-23 | Outpatient (REF) | payer MEDICARE ==
[~2020-06-23] MED LIST changes: -LISI-542 PO; +LISI-898 PO
== END ==
LOC: M LAB REF 16:43
PROVIDERS: ATTEND Internal Medicine
DX: I48.21 Permanent atrial fibrillation (principal)

== ENCOUNTER → 2020-10-23 | Outpatient (REF) | payer MEDICARE ==
[~2020-10-23] MED LIST changes: -KLOR10TA76 PO; -LISI-898 PO; +LISI5TAB11 PO; +LOSA100T45 PO; -LOSA100T50 PO; +POTA-136 PO
== END ==
LOC: M LAB REF 17:02
PROVIDERS: ATTEND Internal Medicine
DX: I48.21 Permanent atrial fibrillation (principal)

== ENCOUNTER → 2021-04-30 | Outpatient (REF) | payer MEDICARE | LOC: M LAB REF 11:59 | PROVIDERS: ATTEND Internal Medicine | DX: I48.21 Permanent atrial fibrillation (principal) ==

== ENCOUNTER 2021-09-05 00:52 | Emergency (ER) | payer MEDICARE ==
[~2021-09-05] VITALS: Ht 188 cm; Wt 109.1 kg
[2021-09-05 01:41] LABS: BASO % 0.4 % (0.0-1.0); EOS # 0.1 10^3/uL (0.0-0.5); EOS % 1.6 % (0.0-3.0); HEMATOCRIT 40.8 % (42.0-52.0); HEMOGLOBIN 13.8 g/dl (13.5-17.5); LYMPH # 1.3 10^3/uL (1.5-5.0); LYMPH % 16.5 % (24.0-44.0); MEAN CORPUSCULAR HEMOGLOBIN 32.5 pg (27.0-33.0); MEAN CORPUSCULAR HGB CONC 33.8 g/dl (32.0-36.5); MEAN CORPUSCULAR VOLUME 96.2 fl (80.0-96.0); MONO # 0.7 10^3/uL (0.0-0.8); MONO % 9.6 % (2.0-8.0); NEUTROPHILS # 5.5 10^3/uL (1.5-8.5); NEUTROPHILS % 71.6 % (36.0-66.0); PLATELET COUNT, AUTOMATED 152 10^3/uL (150-450); RED BLOOD COUNT 4.24 10^6/uL (4.30-6.10); WHITE BLOOD COUNT 7.7 10^3/uL (4.0-10.0)
[2021-09-05 02:12] LABS: BLOOD UREA NITROGEN 16 MG/DL (7-18); CALCIUM LEVEL 9.3 MG/DL (8.8-10.2); CARBON DIOXIDE LEVEL 28 MEQ/L (21-32); CHLORIDE LEVEL 99 MEQ/L (98-107); CREATININE FOR GFR 1.28 MG/DL (0.70-1.30); GLOMERULAR FILTRATION RATE > 60.0 (>49); GLUCOSE, FASTING 95 MG/DL (70-100); MAGNESIUM LEVEL 1.9 MG/DL (1.8-2.4); NT-PRO BNP 520 PG/ML (<125); POTASSIUM SERUM 3.9 MEQ/L (3.5-5.1); SODIUM LEVEL 136 MEQ/L (136-145)
[2021-09-05 02:13] LABS: CK-MB VALUE MASS 2.1 NG/ML (<3.6); MB/CK RELATIVE INDEX 1.79 (< OR =4)
[2021-09-05 04:00] VITALS: BP 147/98
== END 2021-09-05 04:58 | disposition home or self-care (01) ==
LOC: M ED 00:52
DX: R00.2 Palpitations (principal); I10 Essential (primary) hypertension; J44.9 Chronic obstructive pulmonary disease, unspecified; I48.91 Unspecified atrial fibrillation; E07.9 Disorder of thyroid, unspecified; Z79.899 Other long term (current) drug therapy; Z79.890 Hormone replacement therapy; Z79.01 Long term (current) use of anticoagulants; F17.200 Nicotine dependence, unspecified, uncomplicated

== ENCOUNTER → 2022-11-22 | Outpatient (REF) | payer MEDICARE ==
[~2022-11-22] MED LIST changes: -LOSA100T45 PO; +LOSA100T46 PO
== END ==
LOC: M LAB REF 09:37
PROVIDERS: ATTEND Internal Medicine
DX: M10.9 Gout, unspecified (principal)

== ENCOUNTER 2022-12-27 14:15 | Emergency (ER) | payer MEDICARE ==
[~2022-12-27] VITALS: Ht 188 cm; Wt 102.1 kg
[2022-12-27] MEDS ORDERED: ENTR1TAB4 (14:39)
[2022-12-27] MEDS ORDERED: ATOR1TAB21 (14:39)
[2022-12-27] MEDS ORDERED: SPIR-10 (14:39)
[2022-12-27 17:37] LABS: BASO % 0.4 % (0.0-1.0); EOS # 0.1 10^3/uL (0.0-0.5); EOS % 1.3 % (0.0-3.0); HEMATOCRIT 35.4 % (42.0-52.0); HEMOGLOBIN 11.8 g/dl (13.5-17.5); LYMPH # 1.2 10^3/uL (1.5-5.0); LYMPH % 15.7 % (24.0-44.0); MEAN CORPUSCULAR HEMOGLOBIN 32.1 pg (27.0-33.0); MEAN CORPUSCULAR HGB CONC 33.3 g/dl (32.0-36.5); MEAN CORPUSCULAR VOLUME 96.2 fl (80.0-96.0); MONO # 0.7 10^3/uL (0.0-0.8); NEUTROPHILS # 5.4 10^3/uL (1.5-8.5); NEUTROPHILS % 72.8 % (36.0-66.0); PLATELET COUNT, AUTOMATED 243 10^3/uL (150-450); RED BLOOD COUNT 3.68 10^6/uL (4.30-6.10); WHITE BLOOD COUNT 7.4 10^3/uL (4.0-10.0)
[2022-12-27 17:49] LABS: INR 1.29; PROTHROMBIN TIME 15.8 SECONDS (12.5-14.5)
[2022-12-27 17:50] LABS: PARTIAL THROMBOPLASTIN TIME 38.1 SECONDS (24.8-34.2)
[2022-12-27 18:06] LABS: CK-MB VALUE MASS 3.3 NG/ML (<3.6)
[2022-12-27 18:07] LABS: C REACTIVE PROTEIN QUANTITATIV 5.9 MG/DL (<1.0)
[2022-12-27 18:08] LABS: ALBUMIN 3.3 G/DL (3.2-5.2); BILIRUBIN,TOTAL 0.8 MG/DL (0.3-1.2); CREATININE FOR GFR 1.31 MG/DL (0.70-1.30); GLOMERULAR FILTRATION RATE 58.6 (>49); MAGNESIUM LEVEL 2.1 MG/DL (1.8-2.4); MB/CK RELATIVE INDEX 1.2 (< OR =4); POTASSIUM SERUM 4.7 MMOL/L (3.5-5.1); TOTAL PROTEIN 7.2 G/DL (5.7-8.2)
[2022-12-27 18:14] LABS: PROCALCITONIN 0.04 ng/ml
[2022-12-27] MEDS ORDERED: NS 1,000 ML IV ONE (18:25)
[2022-12-27 22:12] LABS: GC DNA AMPLIFICATION NEGATIVE (NEGATIVE)
[2022-12-27] MEDS ORDERED: PRED10TA2 PO (22:49)
[2022-12-27] MEDS ORDERED: predniSONE 20 MG TAB PO ONE (22:50)
[2022-12-27 22:57] VITALS: BP 160/95; TEMP 98.2; O2SAT 95
== END 2022-12-27 23:10 | disposition home or self-care (01) ==
LOC: M ED 14:15
DX: D69.0 Allergic purpura (principal); I48.91 Unspecified atrial fibrillation; I11.0 Hypertensive heart disease with heart failure; I50.9 Heart failure, unspecified; J44.9 Chronic obstructive pulmonary disease, unspecified; E03.9 Hypothyroidism, unspecified; F32.A Depression, unspecified; N40.0 Benign prostatic hyperplasia without lower urinary tract symptoms; Z79.899 Other long term (current) drug therapy; Z79.01 Long term (current) use of anticoagulants; Z87.891 Personal history of nicotine dependence
CPT/HCPCS: 71045; 80053; 81001; 82550; 82553; 83605; 83735; 84145; 84484; 85025; 85384; 85610; 85730; 86140; 87040; 87486; 87581; 87633; 87798; 87810; 87850; 93005; 96360; 99284; J7512

== ENCOUNTER 2023-11-24 12:05 | Inpatient (IN) | payer MEDICARE ==
[2023-11-24] VITALS (23 sets, daily range): BP systolic 81–122; BP diastolic 41–58; TEMP 98.1; O2SAT 88–100
[~2023-11-24] VITALS: Ht 188 cm; Wt 114.4 kg
[~2023-11-24 12:05] MED LIST changes: +ATOR1TAB21 PO; +ENTR1TAB4 PO; +PRED10TA2 PO; +SPIR-10 PO
[2023-11-24] MEDS: IPRATROPIUM 0.5MG/ALBUTEROL 2.5MG INH SOL UD 3ML (DUONEB) NEB PRN (12:45)
[2023-11-24] MEDS: NS 1,000 ML IV ONE (12:45)
[2023-11-24 12:57] LABS: ALBUMIN 3.4 G/DL (3.2-5.2); BILIRUBIN,DIRECT 0.9 MG/DL (<0.4); BILIRUBIN,TOTAL 1.6 MG/DL (0.3-1.2); CALCIUM LEVEL 8.9 MG/DL (8.3-10.6); CREATININE FOR GFR 5.17 MG/DL (0.70-1.30); POTASSIUM SERUM 5.3 MMOL/L (3.5-5.1); TOTAL PROTEIN 6.9 G/DL (5.7-8.2)
[2023-11-24 12:58] LABS: CK-MB VALUE MASS 39.1 NG/ML (<3.6)
[2023-11-24 13:00] LABS: MEAN CORPUSCULAR HEMOGLOBIN 32.6 pg (27.0-33.0); MEAN CORPUSCULAR HGB CONC 34.1 g/dl (32.0-36.5); MEAN CORPUSCULAR VOLUME 95.6 fl (80.0-96.0); RED BLOOD COUNT 4.29 10^6/uL (4.30-6.10)
[2023-11-24 13:02] LABS: PLATELET COUNT, AUTOMATED 77 10^3/uL (150-450); THYROID STIMULATING HORMONE 8.044 uIU/ML (0.55-4.78)
[2023-11-24] MEDS: methylPREDNISolone 125MG 2ML VIAL IV ONE (13:05)
[2023-11-24 13:15] LABS: MB/CK RELATIVE INDEX 0.91 (< OR =4)
[2023-11-24 13:26] LABS: INR 2.08; PARTIAL THROMBOPLASTIN TIME 45.3 SECONDS (24.8-34.2); PROTHROMBIN TIME 22.7 SECONDS (12.5-14.5)
[2023-11-24 13:35] LABS: VENOUS BASE EXCESS -11.8 (-2.0-2.0); VENOUS HCO3 17.7 MMOL/L (23.0-27.0); VENOUS O2 SATURATION 90.7 % (60.0-80.0); VENOUS PARTIAL PRESSURE CO2 55.5 mmHg (38.0-50.0); VENOUS PARTIAL PRESSURE O2 76.5 mmHg (30.0-50.0); VENOUS PH 7.122 UNITS (7.330-7.430); VENOUS STANDARD HCO3 15.2 MMOL/L; VENOUS TOTAL CO2 19.4 MMOL/L (24.0-28.0)
[2023-11-24 13:38] LABS: ABG BASE EXCESS -10.6 (-2.0-2.0); ABG HCO3 17.8 MMOL/L (22.0-26.0); ABG O2 SATURATION 89.2 % (95.0-99.0); ABG PARTIAL PRESSURE CO2 49.3 mmHg (35.0-45.0); ABG PARTIAL PRESSURE O2 67.9 mmHg (75.0-100.0); ABG TOTAL CO2 19.3 MMOL/L (23.0-31.0)
[2023-11-24 13:40] LABS: ATYPICAL LYMPH 3 % (0-5); EOSINOPHILS 1 % (0-3); LYMPHOCYTES 3 % (16-44); METAMYELOCYTES 2 % (0-0); MONOCYTES 5 % (0-5); NEUTROPHILS 58 % (28-66)
[2023-11-24 13:41] LABS: ABG pH (ARTERIAL) 7.175 UNITS (7.350-7.450)
[2023-11-24 13:41] LABS: PLATELET ESTIMATE DECREASED (NORMAL)
[2023-11-24] MEDS: CALCIUM GLUCONATE 1,000 MG in D5W MINI-BAG PLUS 100 ML IV ONE (13:52)
[2023-11-24] MEDS: BOOSTRIX VACCINE (TETANUS/DIPHTH/ACEL. PERTUSSIS) 0.5ML SYR IM.IMMUN ONE (13:53)
[2023-11-24] MEDS: DEXTROSE 50% 50ML SYRINGE IV STA (13:53)
[2023-11-24 14:21] LABS: CK-MB VALUE MASS 42.7 NG/ML (<3.6)
[2023-11-24 14:37] LABS: MB/CK RELATIVE INDEX 1.08 (< OR =4)
[2023-11-24] MEDS: PIPERACILLIN/TAZOBACTAM SOD 2.25 GM in D5W MINI-BAG PLUS 50 ML IV ONE (15:32)
[2023-11-24] MEDS ORDERED: HEPARIN SOD (PORCINE) 5000UNITS/ML 1ML VIAL/SYRINGE SC SCH (15:40)
[2023-11-24 15:46] LABS: URIC ACID 12.3 MG/DL (3.7-9.2)
[2023-11-24] MEDS ORDERED: LEVO150T7 PO (17:15)
[2023-11-24] MEDS ORDERED: BUDE10.7 INH (17:15)
[2023-11-24] MEDS ORDERED: TYLE650T38 PO (17:16)
[2023-11-24] MEDS ORDERED: HOME MED LIST COMPLETE! XX SCH (17:20)
[2023-11-24] MEDS: SODIUM BICARBONATE 150 MEQ in D5W 1,000 ML IV SCH (17:39)
[2023-11-24] MEDS ORDERED: AZITHROMYCIN INJ 500 MG, VIAL MATE ADAPTER 1 EACH in NS 250 ML IV ONE (18:00)
[2023-11-24 18:26] LABS: ABG BASE EXCESS -11.3 (-2.0-2.0); ABG HCO3 19.2 MMOL/L (22.0-26.0); ABG O2 SATURATION 98.9 % (95.0-99.0); ABG PARTIAL PRESSURE O2 227.4 mmHg (75.0-100.0); ABG STANDARD HCO3 15.7 MMOL/L. (22.0-26.0); ABG TOTAL CO2 21.2 MMOL/L (23.0-31.0)
[2023-11-24 18:27] LABS: ABG PARTIAL PRESSURE CO2 63.7 mmHg (35.0-45.0); ABG pH (ARTERIAL) 7.097 UNITS (7.350-7.450)
[2023-11-24] MEDS: NOREPINEPHRINE 4MG IN D5 250ML 4 MG in IV 1 EA IV SCH (18:30)
[2023-11-24] MEDS ORDERED: ePHEDrine SULFATE 25 MG/5 ML(5MG/ML) SYRINGE ONE (18:43)
[2023-11-24] MEDS: propofoL 200 MG/20 ML VIAL IV ONE (18:43)
[2023-11-24] MEDS: ROCURONIUM BROMIDE 50MG/5ML VIAL IV SCH (18:44)
[2023-11-24] MEDS ORDERED: HEPARIN 1,000UNITS/ML 10ML VIAL (FOR RADIOLOGY & DIALYSIS ONLY) XX SCH (18:50)
[2023-11-24] MEDS ORDERED: HEPARIN 1,000UNITS/ML 10ML VIAL (FOR RADIOLOGY & DIALYSIS ONLY) IV PRN (18:50)
[2023-11-24] MEDS ORDERED: SODIUM CHLORIDE 0.9% 1000ML IV PRN (18:50)
[2023-11-24] MEDS ORDERED: HEPARIN 1,000UNITS/ML 10ML VIAL (FOR RADIOLOGY & DIALYSIS ONLY) IV STA (19:22)
[2023-11-24] MEDS: NS 500 ML IV ONE (19:46)
[2023-11-24 20:00] LABS: ALBUMIN 2.9 G/DL (3.2-5.2); CALCIUM LEVEL 8.3 MG/DL (8.3-10.6); CREATININE FOR GFR 6.05 MG/DL (0.70-1.30); POTASSIUM SERUM 5.3 MMOL/L (3.5-5.1)
[2023-11-24] MEDS: ALBUTEROL SULFATE 2.5MG/0.5ML INH NEB SOLN NEB SCH (20:17)
[2023-11-24 20:40] LABS: ABG BASE EXCESS -13.2 (-2.0-2.0); ABG HCO3 20.6 MMOL/L (22.0-26.0); ABG O2 SATURATION 99.4 % (95.0-99.0); ABG PARTIAL PRESSURE O2 421.3 mmHg (75.0-100.0); ABG STANDARD HCO3 14.4 MMOL/L. (22.0-26.0); ABG TOTAL CO2 23.4 MMOL/L (23.0-31.0)
[2023-11-24 20:41] LABS: ABG PARTIAL PRESSURE CO2 93.7 mmHg (35.0-45.0); ABG pH (ARTERIAL) 6.959 UNITS (7.350-7.450)
[2023-11-24] MEDS: DOXYCYCLINE HYCLATE 200 MG in D5W MINI-BAG PLUS 100 ML IV ONE (20:56)
[2023-11-24] MEDS: HYDROCORTISONE 100MG/2ML VIAL IV SCH (20:57)
[2023-11-24 22:55] LABS: MAGNESIUM LEVEL 2.9 MG/DL (1.8-2.4)
[2023-11-24 23:19] LABS: ABG BASE EXCESS -11.6 (-2.0-2.0); ABG HCO3 19.6 MMOL/L (22.0-26.0); ABG O2 SATURATION 96.7 % (95.0-99.0); ABG PARTIAL PRESSURE O2 100.2 mmHg (75.0-100.0); ABG STANDARD HCO3 15.4 MMOL/L. (22.0-26.0); ABG TOTAL CO2 21.7 MMOL/L (23.0-31.0)
[2023-11-24 23:20] LABS: ABG PARTIAL PRESSURE CO2 69.7 mmHg (35.0-45.0)
[2023-11-24 23:21] LABS: ABG pH (ARTERIAL) 7.066 UNITS (7.350-7.450)
[2023-11-24] MEDS ORDERED: SODIUM CHLORIDE 0.9% 1000ML CRRT SCH (23:35)
[2023-11-25] VITALS (68 sets, daily range): BP systolic 77–135; BP diastolic 47–80; TEMP 95.6–97.9; O2SAT 96–100
[2023-11-25] MEDS: VASOPRESSIN INJ 20 UNITS in NS 499 ML IV SCH
[2023-11-25] MEDS ORDERED: PROTHROMBIN COMPLEX CONCEN IV ONE (00:30)
[2023-11-25] MEDS ORDERED: FLUID PLACE HOLDER IV ONE (00:30)
[2023-11-25] MEDS: PIPERACILLIN/TAZOBACTAM SOD 2.25 GM in D5W MINI-BAG PLUS 50 ML IV SCH (00:35)
[2023-11-25] MEDS: dexmedeTOMidine 200 MCG in IV 1 EA IV SCH (00:36)
[2023-11-25] MEDS ORDERED: VASOPRESSIN INJ 20UNITS/ML 1ML VIAL As Ordered ONE (01:18)
[2023-11-25] MEDS ORDERED: SODIUM BICARBONATE 150 MEQ in D5W 1,000 ML IV SCH (01:30)
[2023-11-25] MEDS: FACTOR XA,INACTIVATED-ZHZO 400 MG in APPROPRIATE DILUENT 40 ML IV ONE (01:44)
[2023-11-25] MEDS: SODIUM BICARBONATE 150 MEQ in D5W 1,000 ML IV SCH (01:48)
[2023-11-25] MEDS: FACTOR XA,INACTIVATED-ZHZO 480 MG in APPROPRIATE DILUENT 48 ML IV ONE (02:05)
[2023-11-25 02:14] LABS: ABG BASE EXCESS -11.5 (-2.0-2.0); ABG HCO3 17.1 MMOL/L (22.0-26.0); ABG O2 SATURATION 97.3 % (95.0-99.0); ABG PARTIAL PRESSURE CO2 49.4 mmHg (35.0-45.0); ABG PARTIAL PRESSURE O2 98.9 mmHg (75.0-100.0); ABG STANDARD HCO3 15.5 MMOL/L. (22.0-26.0); ABG TOTAL CO2 18.7 MMOL/L (23.0-31.0)
[2023-11-25 02:15] LABS: ABG pH (ARTERIAL) 7.158 UNITS (7.350-7.450)
[2023-11-25] MEDS: MIDAZOLAM INJ 2MG/2ML VIAL IV STA (03:40)
[2023-11-25] MEDS: MIDAZOLAM 100MG/100ML-0.9%NACL 100 MG in IV 1 EA IV SCH (03:43)
[2023-11-25] MEDS: VANCOMYCIN HCL 1,000 MG, VIAL MATE ADAPTER 1 EACH in D5W 250 ML IV ONE (03:44)
[2023-11-25 05:16] LABS: VENOUS BASE EXCESS -11.2 (-2.0-2.0); VENOUS HCO3 17.6 MMOL/L (23.0-27.0); VENOUS O2 SATURATION 76.2 % (60.0-80.0); VENOUS PARTIAL PRESSURE CO2 51.7 mmHg (38.0-50.0); VENOUS PH 7.149 UNITS (7.330-7.430); VENOUS STANDARD HCO3 15.3 MMOL/L; VENOUS TOTAL CO2 19.2 MMOL/L (24.0-28.0)
[2023-11-25 05:28] LABS: BASO % 0.3 % (0.0-1.0); EOS % 0.1 % (0.0-3.0); HEMATOCRIT 34.9 % (42.0-52.0); HEMOGLOBIN 11.6 g/dl (13.5-17.5); LYMPH # 0.6 10^3/uL (1.5-5.0); MEAN CORPUSCULAR HGB CONC 33.2 g/dl (32.0-36.5); MEAN CORPUSCULAR VOLUME 99.1 fl (80.0-96.0); MONO # 0.9 10^3/uL (0.0-0.8); NEUTROPHILS # 10.9 10^3/uL (1.5-8.5); NEUTROPHILS % 86.9 % (36.0-66.0); RED BLOOD COUNT 3.52 10^6/uL (4.30-6.10); WHITE BLOOD COUNT 12.5 10^3/uL (4.0-10.0)
[2023-11-25 05:30] LABS: ABG BASE EXCESS -11.2 (-2.0-2.0); ABG HCO3 16.1 MMOL/L (22.0-26.0); ABG O2 SATURATION 97.8 % (95.0-99.0); ABG PARTIAL PRESSURE CO2 40.8 mmHg (35.0-45.0); ABG STANDARD HCO3 15.7 MMOL/L. (22.0-26.0); ABG TOTAL CO2 17.3 MMOL/L (23.0-31.0)
[2023-11-25 05:35] LABS: ABG pH (ARTERIAL) 7.213 UNITS (7.350-7.450)
[2023-11-25 05:38] LABS: INR 1.49; PARTIAL THROMBOPLASTIN TIME 38.6 SECONDS (24.8-34.2); PROTHROMBIN TIME 17.5 SECONDS (12.5-14.5)
[2023-11-25 05:39] LABS: PLATELET COUNT, AUTOMATED 28 10^3/uL (150-450)
[2023-11-25 05:44] LABS: ERYTHROCYTE SEDIMENTATION RATE 18 mm/hr (0-20)
[2023-11-25 05:57] LABS: VANCOMYCIN RANDOM 36.3 UG/ML
[2023-11-25] MEDS ORDERED: VANCOMYCIN INTERMITTENT/PULSE DOSING BY CLINICAL PHARMACIST PER DOSING PROTOCOL XX SCH (06:00)
[2023-11-25 06:36] LABS: ALBUMIN 2.1 G/DL (3.2-5.2); BILIRUBIN,TOTAL 2.4 MG/DL (0.3-1.2); CALCIUM LEVEL 6.6 MG/DL (8.3-10.6); CK-MB VALUE MASS 69.4 NG/ML (<3.6); CREATININE FOR GFR 5.13 MG/DL (0.70-1.30); GLOMERULAR FILTRATION RATE 12.1 (>49); MAGNESIUM LEVEL 2.4 MG/DL (1.8-2.4); MB/CK RELATIVE INDEX 1.12 (< OR =4); POTASSIUM SERUM 4.8 MMOL/L (3.5-5.1); TOTAL PROTEIN 4.6 G/DL (5.7-8.2)
[2023-11-25 07:10] LABS: BASO % 0.4 % (0.0-1.0); LYMPH # 0.5 10^3/uL (1.5-5.0); LYMPH % 4.6 % (24.0-44.0); NEUTROPHILS # 9.2 10^3/uL (1.5-8.5)
[2023-11-25 07:38] LABS: ATYPICAL LYMPH 2 % (0-5); LYMPHOCYTES 3 % (16-44); METAMYELOCYTES 8 % (0-0); MONOCYTES 6 % (0-5); MYELOCYTES 1 % (0-0); NEUTROPHILS 51 % (28-66)
[2023-11-25 07:39] LABS: PLATELET ESTIMATE MARKED DECREASE (NORMAL)
[2023-11-25 07:42] LABS: DOHLE BODIES 1+; TOXIC GRANULATION 1+; TOXIC VACUOLATION 1+
[2023-11-25 07:46] LABS: CRENATED RBC 1+
[2023-11-25 08:01] LABS: PLATELET COUNT, AUTOMATED 21 10^3/uL (150-450)
[2023-11-25 08:25] LABS: FIBRINOGEN 347 MG/DL (268-480)
[2023-11-25 08:27] LABS: D-DIMER QUANT > 20.00 ug/mL (<0.5)
[2023-11-25] MEDS ORDERED: methylPREDNISolone 40MG 1ML VIAL IV SCH (09:00)
[2023-11-25] MEDS: CALCIUM GLUCONATE 1,000 MG in NS 100 ML IV SCH (09:44)
[2023-11-25 11:41] LABS: BASO % 0.4 % (0.0-1.0); HEMATOCRIT 33.4 % (42.0-52.0); HEMOGLOBIN 11.3 g/dl (13.5-17.5); LYMPH # 0.5 10^3/uL (1.5-5.0); MEAN CORPUSCULAR HEMOGLOBIN 32.9 pg (27.0-33.0); MEAN CORPUSCULAR HGB CONC 33.8 g/dl (32.0-36.5); MEAN CORPUSCULAR VOLUME 97.4 fl (80.0-96.0); MONO # 0.9 10^3/uL (0.0-0.8); MONO % 8.3 % (2.0-8.0); NEUTROPHILS # 9.2 10^3/uL (1.5-8.5); NEUTROPHILS % 85.1 % (36.0-66.0); RED BLOOD COUNT 3.43 10^6/uL (4.30-6.10); WHITE BLOOD COUNT 10.8 10^3/uL (4.0-10.0)
[2023-11-25 11:43] LABS: PLATELET COUNT, AUTOMATED 30 10^3/uL (150-450)
[2023-11-25 11:46] LABS: BASO % 0.4 % (0.0-1.0); HEMATOCRIT 33.3 % (42.0-52.0); HEMOGLOBIN 11.3 g/dl (13.5-17.5); LYMPH # 0.5 10^3/uL (1.5-5.0); LYMPH % 4.4 % (24.0-44.0); MEAN CORPUSCULAR HEMOGLOBIN 33.2 pg (27.0-33.0); MEAN CORPUSCULAR HGB CONC 33.9 g/dl (32.0-36.5); MEAN CORPUSCULAR VOLUME 97.9 fl (80.0-96.0); MONO # 0.8 10^3/uL (0.0-0.8); MONO % 7.8 % (2.0-8.0); NEUTROPHILS # 9.3 10^3/uL (1.5-8.5); NEUTROPHILS % 86.3 % (36.0-66.0); WHITE BLOOD COUNT 10.8 10^3/uL (4.0-10.0)
[2023-11-25 11:50] LABS: PLATELET COUNT, AUTOMATED 32 10^3/uL (150-450)
[2023-11-25 11:53] LABS: INR 2.26; PARTIAL THROMBOPLASTIN TIME 40.7 SECONDS (24.8-34.2); PROTHROMBIN TIME 24.1 SECONDS (12.5-14.5)
[2023-11-25 12:04] LABS: ABG BASE EXCESS -10.6 (-2.0-2.0); ABG HCO3 17.7 MMOL/L (22.0-26.0); ABG PARTIAL PRESSURE CO2 48.8 mmHg (35.0-45.0); ABG STANDARD HCO3 15.5 MMOL/L. (22.0-26.0); ABG TOTAL CO2 19.2 MMOL/L (23.0-31.0)
[2023-11-25 12:06] LABS: ABG PARTIAL PRESSURE O2 37.8 mmHg (75.0-100.0); ABG pH (ARTERIAL) 7.177 UNITS (7.350-7.450)
[2023-11-25 12:12] LABS: INR 2.31; PROTHROMBIN TIME 24.5 SECONDS (12.5-14.5)
[2023-11-25 12:13] LABS: CALCIUM LEVEL 7.2 MG/DL (8.3-10.6); CREATININE FOR GFR 3.87 MG/DL (0.70-1.30); GLOMERULAR FILTRATION RATE 16.7 (>49); MAGNESIUM LEVEL 2.1 MG/DL (1.8-2.4); POTASSIUM SERUM 4.6 MMOL/L (3.5-5.1)
[2023-11-25 12:41] LABS: ALBUMIN 2.1 G/DL (3.2-5.2); BILIRUBIN,TOTAL 2.9 MG/DL (0.3-1.2); CALCIUM LEVEL 7.1 MG/DL (8.3-10.6); CK-MB VALUE MASS 77.3 NG/ML (<3.6); CREATININE FOR GFR 3.83 MG/DL (0.70-1.30); MB/CK RELATIVE INDEX 1.34 (< OR =4); PHOSPHORUS LEVEL 7.7 MG/DL (2.4-5.1); POTASSIUM SERUM 4.5 MMOL/L (3.5-5.1); TOTAL PROTEIN 4.5 G/DL (5.7-8.2)
[2023-11-25] MEDS ORDERED: LORazepam 2 MG/ML 1ML VIAL IV PRN (14:35)
[2023-11-25] MEDS ORDERED: MORPHINE 2 MG/ML 1ML VIAL IV PRN (14:35)
[2023-11-25] MEDS: MORPHINE 2 MG/ML 1ML VIAL IV PRN (15:22)
[2023-11-25] MEDS: GLYCOPYRROLATE INJ 0.2 MG/ML 2 ML VIAL IV ONE (15:23)
[2023-11-25] MEDS ORDERED: dexmedeTOMIDine (4MCG/ML)200MCG/50ML BTL (PRECEDEX) As Ordered ONE (15:54)
[2023-11-25 16:16] LABS: HEPATITIS B CORE ANTIBODY IGM NEGATIVE (NEGATIVE); HEPATITIS B SURFACE ANTIBODY NEGATIVE (POSITIVE); HEPATITIS B SURFACE ANTIGEN NEGATIVE (NEGATIVE); HEPATITIS C VIRUS ABY INDEX < 0.02 INDEX (<0.8)
[2023-11-25] MEDS ORDERED: PANTOPRAZOLE 40MG VIAL IV SCH (21:00)
[2023-11-29 20:02] LABS: LYME TOTAL ANTIBODY CIA <= 0.90 Index (<=0.90)
[2023-11-30 00:13] LABS: CK 2 (MB) 4 % (<5); CK 3 (MM) 94 % (95-100); CK TOTAL 5940 U/L (44-196); COMMENT FOR CK ISOENZYME MACRO CK TYPE 1
[2023-12-07 08:12] LABS: CK 1 (BB) NONE DETECTED (NONE DETECTED)
== END 2023-11-25 16:36 | disposition expired | DRG 871 ==
LOC: M ED 12:05 → M ED INP 15:38 → M ICU 17:49
PROVIDERS: ADMIT Internal Medicine Critical Care Medicine; ATTEND Internal Medicine Critical Care Medicine
PROC: 0BH17EZ Insertion of Endotracheal Airway into Trachea, Via Natural or Artificial Opening (ICD-10-PCS; principal; 2023-11-24)
PROC: 02HV33Z Insertion of Infusion Device into Superior Vena Cava, Percutaneous Approach (ICD-10-PCS; 2023-11-24)
PROC: 5A1D90Z Performance of Urinary Filtration, Continuous, Greater than 18 hours Per Day (ICD-10-PCS; 2023-11-24)
PROC: 5A1935Z Respiratory Ventilation, Less than 24 Consecutive Hours (ICD-10-PCS; 2023-11-24)
PROC: B246ZZZ Ultrasonography of Right and Left Heart (ICD-10-PCS; 2023-11-25)
DX: A41.9 Sepsis, unspecified organism (principal); J96.01 Acute respiratory failure with hypoxia; R65.21 Severe sepsis with septic shock; I61.9 Nontraumatic intracerebral hemorrhage, unspecified; N17.9 Acute kidney failure, unspecified; E87.4 Mixed disorder of acid-base balance; I50.22 Chronic systolic (congestive) heart failure; M62.82 Rhabdomyolysis; Z66 Do not resuscitate; R57.0 Cardiogenic shock; J44.9 Chronic obstructive pulmonary disease, unspecified; E83.39 Other disorders of phosphorus metabolism; Z51.5 Encounter for palliative care; E78.5 Hyperlipidemia, unspecified; I11.0 Hypertensive heart disease with heart failure; Z79.01 Long term (current) use of anticoagulants; Z79.890 Hormone replacement therapy; Z79.899 Other long term (current) drug therapy; Z87.891 Personal history of nicotine dependence; Z96.642 Presence of left artificial hip joint